=== PATIENT | male | born 1960 | race African-American/Black ===

== ENCOUNTER 2016-05-03 04:42 | Inpatient (IN) | payer OTHER ==
[~2016-05-03] VITALS: Ht 167.6 cm; Wt 67.7 kg
[~2016-05-03 04:42] MED LIST: CLON.1 PO; HYDR50 PO; LABE200T PO; METH10 PO; MULT-1192 PO
[2016-05-03 05:27] LABS: BASOPHILS # (AUTO) 0.06 K/uL (0.00-0.20); BASOPHILS % (AUTO) 0.6 % (0.0-2.0); EOSINOPHILS # (AUTO) 0.37 K/uL (0.00-0.70); HEMATOCRIT 39.9 % (41-53); LYMPHOCYTES # (AUTO) 1.4 K/uL (1.0-4.8); LYMPHOCYTES % (AUTO) 13.2 % (22.0-44.0); MEAN CORPUSCULAR HEMOGLOBIN 26.7 pg (26.0-34.0); MEAN CORPUSCULAR HGB CONC 32.6 G/dL (31.0-37.0); MEAN CORPUSCULAR VOLUME 82 fL (80-100); MONOCYTES # (AUTO) 0.6 K/uL (0.1-1.0); MONOCYTES % (AUTO) 5.8 % (2.0-9.0); NEUTROPHILS % (AUTO) 76.9 % (40.0-70.0); PLATELET COUNT (AUTO) 198 K/uL (150-450); RED BLOOD CELL COUNT(AUTO) 4.86 MIL/uL (4.50-5.90); RED CELL DISTRIBUTION WIDTH 16.3 % (11.5-14.5); WHITE BLOOD COUNT (AUTO) 10.4 K/uL (4.5-11.0)
[2016-05-03 05:32] LABS: ANION GAP 11 mmol/L (8-16); CALCIUM, TOTAL 8.6 mg/dL (8.8-10.5); CARBON DIOXIDE 24 mmol/L (22-29); CHLORIDE 106 mmol/L (98-107); CREATININE 2.13 mg/dL (0.60-1.30); GLOMERULAR FILTR. RATE CALC 39 mL/min (>60); POTASSIUM 4.1 mmol/L (3.5-5.1); SODIUM SERUM 141 mmol/L (136-145); UREA NITROGEN, BLOOD 32 mg/dL (7-18)
[2016-05-03 05:33] LABS: PROTHROMBIN TIME 10.7 SEC (9.4-11.6)
[2016-05-03] MEDS ORDERED: NITROGLYCERIN 2% (1 GM=INCH) PACKET TP ONE (05:45)
[2016-05-03] MEDS ORDERED: CloNIDine HCL 0.1 MG TABLET PO ONE (05:45)
[2016-05-03] MEDS ORDERED: HydrALAZINE HCL 20 MG/ML VIAL IVP ONE (05:45)
[2016-05-03 05:49] LABS: B-TYPE NATRIURETIC PEPTIDE 1440 pg/mL (0-100)
[2016-05-03 05:56] LABS: ALANINE AMINOTRANSFERASE 24 U/L (12-78); ASPARTATE AMINOTRANSFERASE 21 U/L (15-37); BILIRUBIN,TOTAL 0.4 mg/dL (0.1-1.0); CREATINE KINASE MB 2.5 ng/mL (0-5); CREATINE KINASE, TOTAL 123 U/L (39-308); TOTAL PROTEIN, SERUM 7.2 g/dL (6.4-8.2)
[2016-05-03 07:22] LABS: APPEARANCE,URINE CLEAR (CLEAR); GLUCOSE, URINE (UA) NEGATIVE (NEGATIVE); KETONES,URINE NEGATIVE (NEGATIVE); LEUKOCYTE ESTERASE ,URINE NEGATIVE (NEGATIVE); OCCULT BLOOD,URINE TRACE (NEGATIVE); PH,URINE 6.5 (5.0-8.0); PROTEIN,URINE SEE CONFIRM (NEGATIVE)
[2016-05-03 07:32] LABS: ADD UA MICROSCOPIC YES
[2016-05-03 07:33] LABS: SULFOSALICYLIC ACID,URINE 4+ (Negative)
[2016-05-03 07:34] LABS: SQUAMOUS EPITHELIAL CELL,UR Rare /LPF (None Seen); WBC,URINE 0-2 /HPF (0-5)
[2016-05-03] MEDS ORDERED: NITROGLYCERIN 50 MG/D5% WATER 250 ML IV PRN (08:00)
[2016-05-03] MEDS: NITROPRUSSIDE SODIUM 50 MG in DEXTROSE 5%-WATER 248 ML IV PRN ×4 (09:45→21:17)
[2016-05-03] MEDS: METHADONE HCL 10 MG TABLET PO SCH (14:20)
[2016-05-03 15:30] VITALS: BP 249/160
[2016-05-03] MEDS: CloNIDine HCL 0.1 MG TABLET PO SCH ×2 (15:59→20:06)
[2016-05-03 16:00] VITALS: BP 203/128
[2016-05-03] MEDS ORDERED: -PHARMACY VACCINE NOTE- MISC ONE ×2 (16:45)
[2016-05-03] MEDS ORDERED: INFLUENZA VIRUS VACCINE QVS 2016-17 (3YR+)/PF 60 MCG/0.5 ML SYRINGE IM ONE (16:45)
[2016-05-03 20:00] VITALS: BP 185/136
[2016-05-03] MEDS ORDERED: BISACODYL 10 MG RECTAL RECTAL SUPPOSITORY PR PRN (21:45)
[2016-05-03] MEDS ORDERED: IPRATROPIUM BROMIDE 0.5 MG/2.5 ML NEB SOLUTION NEB PRN (21:45)
[2016-05-03] MEDS ORDERED: ALBUTEROL SULFATE 2.5 MG/0.5 ML NEB SOLUTION NEB PRN (21:45)
[2016-05-03] MEDS ORDERED: ACETAMINOPHEN 325 MG TABLET PO PRN (21:45)
[2016-05-03] MEDS ORDERED: MAGNESIUM HYDROXIDE SUSPENSION 30 ML UDCUP PO PRN (21:45)
[2016-05-03] MEDS ORDERED: ZOLPIDEM TARTRATE 5 MG TABLET PO PRN (21:45)
[2016-05-03] MEDS ORDERED: HYDROCODONE/ACETAMINOPHEN 5-325 MG TABLET PO PRN (21:45)
[2016-05-03] MEDS ORDERED: HydrALAZINE HCL 50 MG TABLET ONE (22:56)
[2016-05-03] MEDS: HydrALAZINE HCL 50 MG TABLET PO SCH ×2 (23:00→23:43)
[2016-05-03] MEDS: ONDANSETRON HCL 4 MG/2 ML VIAL IVP PRN (23:43)
[2016-05-03] MEDS: HEPARIN SODIUM,PORCINE 5,000 UNITS/ML VIAL SQ SCH (23:45)
[2016-05-04] VITALS (10 sets, daily range): BP systolic 124–196; BP diastolic 71–110
[2016-05-04] MEDS: NITROPRUSSIDE SODIUM 50 MG in DEXTROSE 5%-WATER 248 ML IV PRN ×4 (00:31→09:31)
[2016-05-04] MEDS: MORPHINE SULFATE 2 MG/ML SYRINGE IVP PRN ×2 (01:55→04:56)
[2016-05-04] MEDS ORDERED: LABETALOL HCL 200 MG in DEXTROSE 5%-WATER 160 ML IV PRN (03:44)
[2016-05-04] MEDS ORDERED: CloNIDine HCL 0.3 MG/24 HOUR PATCH TD ONE (03:45)
[2016-05-04] MEDS ORDERED: HydrALAZINE HCL 20 MG/ML VIAL IVP PRN (03:45)
[2016-05-04 05:57] LABS: BASOPHILS % (AUTO) 0.1 % (0.0-2.0); EOSINOPHILS % (AUTO) 0.3 % (1.0-6.0); HEMATOCRIT 39.5 % (41-53); HEMOGLOBIN 12.8 g/dL (13.5-17.5); LYMPHOCYTES # (AUTO) 0.6 K/uL (1.0-4.8); LYMPHOCYTES % (AUTO) 4.6 % (22.0-44.0); MEAN CORPUSCULAR HEMOGLOBIN 26.5 pg (26.0-34.0); MEAN CORPUSCULAR HGB CONC 32.3 G/dL (31.0-37.0); MEAN CORPUSCULAR VOLUME 82 fL (80-100); MONOCYTES # (AUTO) 0.5 K/uL (0.1-1.0); MONOCYTES % (AUTO) 3.5 % (2.0-9.0); NEUTROPHILS # (AUTO) 12.8 K/uL (1.8-7.7); PLATELET COUNT (AUTO) 191 K/uL (150-450); RED BLOOD CELL COUNT(AUTO) 4.81 MIL/uL (4.50-5.90)
[2016-05-04 06:09] LABS: CALCIUM, TOTAL 8.5 mg/dL (8.8-10.5); CREATININE 2.11 mg/dL (0.60-1.30); POTASSIUM 4.2 mmol/L (3.5-5.1)
[2016-05-04 06:41] LABS: NEUTROPHILS % (AUTO) 91.5 % (40.0-70.0)
[2016-05-04 06:42] LABS: RBC MORPHOLOGY COMMENT NORMAL RBC MORPH
[2016-05-04] MEDS: DOCUSATE SODIUM 100 MG CAPSULE PO SCH ×2 (08:15→21:52)
[2016-05-04] MEDS: METHADONE HCL 10 MG TABLET PO SCH (08:15)
[2016-05-04] MEDS: HEPARIN SODIUM,PORCINE 5,000 UNITS/ML VIAL SQ SCH ×2 (08:16→15:51)
[2016-05-04] MEDS: ONDANSETRON HCL 4 MG/2 ML VIAL IVP PRN (08:16)
[2016-05-04] MEDS: HydrALAZINE HCL 50 MG TABLET PO SCH ×3 (08:16→21:52)
[2016-05-04] MEDS: PANTOPRAZOLE SODIUM 40 MG/VIAL IVP SCH (08:17)
[2016-05-04] MEDS: LABETALOL HCL 200 MG TABLET PO SCH ×3 (08:58→23:00)
[2016-05-04] MEDS ORDERED: HydrALAZINE HCL 50 MG TABLET PO SCH (09:00)
[2016-05-05] MEDS: HEPARIN SODIUM,PORCINE 5,000 UNITS/ML VIAL SQ SCH ×2 (00:29→08:39)
[2016-05-05 04:48] VITALS: BP 118/78
[2016-05-05 07:09] LABS: BASOPHILS % (AUTO) 0.4 % (0.0-2.0); EOSINOPHILS % (AUTO) 2.9 % (1.0-6.0); HEMATOCRIT 35.9 % (41-53); HEMOGLOBIN 11.6 g/dL (13.5-17.5); LYMPHOCYTES # (AUTO) 1.4 K/uL (1.0-4.8); LYMPHOCYTES % (AUTO) 17.3 % (22.0-44.0); MEAN CORPUSCULAR HEMOGLOBIN 26.5 pg (26.0-34.0); MEAN CORPUSCULAR HGB CONC 32.3 G/dL (31.0-37.0); MEAN CORPUSCULAR VOLUME 82 fL (80-100); MONOCYTES # (AUTO) 0.7 K/uL (0.1-1.0); MONOCYTES % (AUTO) 8.3 % (2.0-9.0); NEUTROPHILS # (AUTO) 5.7 K/uL (1.8-7.7); NEUTROPHILS % (AUTO) 71.1 % (40.0-70.0); PLATELET COUNT (AUTO) 170 K/uL (150-450); RED BLOOD CELL COUNT(AUTO) 4.37 MIL/uL (4.50-5.90); RED CELL DISTRIBUTION WIDTH 15.8 % (11.5-14.5)
[2016-05-05 07:19] VITALS: BP 166/100
[2016-05-05 07:42] LABS: ALBUMIN 2.7 g/dL (3.4-5.0); BILIRUBIN,TOTAL 0.5 mg/dL (0.1-1.0); CALCIUM, TOTAL 8.6 mg/dL (8.8-10.5); CREATININE 2.49 mg/dL (0.60-1.30); MAGNESIUM 2.1 mg/dL (1.80-2.40); POTASSIUM 4.3 mmol/L (3.5-5.1); TOTAL PROTEIN, SERUM 6.4 g/dL (6.4-8.2)
[2016-05-05] MEDS: METHADONE HCL 10 MG TABLET PO SCH (08:40)
[2016-05-05] MEDS: DOCUSATE SODIUM 100 MG CAPSULE PO SCH (08:40)
[2016-05-05] MEDS: PANTOPRAZOLE SODIUM 40 MG/VIAL IVP SCH (08:40)
[2016-05-05] MEDS: HydrALAZINE HCL 50 MG TABLET PO SCH (08:40)
== END 2016-05-05 09:00 | disposition left against medical advice (07) | DRG 199 ==
LOC: EMS 04:43 → ICU 14:32 → 5N 05-04 22:24
PROVIDERS: ADMIT Hospitalist; ATTEND Hospitalist
DX: I16.9 Hypertensive crisis, unspecified (principal); I50.23 Acute on chronic systolic (congestive) heart failure; E44.0 Moderate protein-calorie malnutrition; N18.3 Chronic kidney disease, stage 3 (moderate); E11.22 Type 2 diabetes mellitus with diabetic chronic kidney disease; I13.0 Hypertensive heart and chronic kidney disease with heart failure and stage 1 through stage 4 chronic kidney disease, or unspecified chronic kidney disease; D64.9 Anemia, unspecified; F41.9 Anxiety disorder, unspecified; F15.10 Other stimulant abuse, uncomplicated; F17.210 Nicotine dependence, cigarettes, uncomplicated; G89.29 Other chronic pain; Z79.891 Long term (current) use of opiate analgesic; Z79.899 Other long term (current) drug therapy; Z87.81 Personal history of (healed) traumatic fracture; Z98.890 Other specified postprocedural states; Z68.24 Body mass index [BMI] 24.0-24.9, adult
CPT/HCPCS: 83735; 87081; 93005; 93306; 96365; 96375; 99285; C9113; G0480; J0360; J1644; J2270; J2405; J3490; J7060

== ENCOUNTER 2016-05-13 03:36 | Inpatient (IN) | payer OTHER ==
[~2016-05-13] VITALS: Ht 170.2 cm; Wt 65.0 kg
[2016-05-13] MEDS ORDERED: NITROGLYCERIN 2% (1 GM=INCH) PACKET TP ONE (04:00)
[2016-05-13] MEDS ORDERED: FUROSEMIDE 40 MG/4 ML VIAL IVP ONE (04:00)
[2016-05-13 04:01] LABS: BASOPHILS % (AUTO) 0.3 % (0.0-2.0); EOSINOPHILS % (AUTO) 5.5 % (1.0-6.0); HEMATOCRIT 35.2 % (41-53); HEMOGLOBIN 11.3 g/dL (13.5-17.5); LYMPHOCYTES # (AUTO) 1.3 K/uL (1.0-4.8); MEAN CORPUSCULAR HEMOGLOBIN 26.4 pg (26.0-34.0); MEAN CORPUSCULAR HGB CONC 32.2 G/dL (31.0-37.0); MEAN CORPUSCULAR VOLUME 82 fL (80-100); MONOCYTES # (AUTO) 0.6 K/uL (0.1-1.0); NEUTROPHILS # (AUTO) 8.6 K/uL (1.8-7.7); NEUTROPHILS % (AUTO) 77.2 % (40.0-70.0); PLATELET COUNT (AUTO) 280 K/uL (150-450); RED CELL DISTRIBUTION WIDTH 15.2 % (11.5-14.5); WHITE BLOOD COUNT (AUTO) 11.1 K/uL (4.5-11.0)
[2016-05-13] MEDS ORDERED: HydrALAZINE HCL 20 MG/ML VIAL IVP ONE ×2 (04:15→05:15)
[2016-05-13 04:16] LABS: ANION GAP 11 mmol/L (8-16); CALCIUM, TOTAL 8.6 mg/dL (8.8-10.5); CARBON DIOXIDE 27 mmol/L (22-29); CHLORIDE 107 mmol/L (98-107); CREATININE 2.06 mg/dL (0.60-1.30); GLOMERULAR FILTR. RATE CALC 41 mL/min (>60); POTASSIUM 3.6 mmol/L (3.5-5.1); SODIUM SERUM 145 mmol/L (136-145); UREA NITROGEN, BLOOD 33 mg/dL (7-18)
[2016-05-13 04:19] LABS: B-TYPE NATRIURETIC PEPTIDE 1570 pg/mL (0-100)
[2016-05-13 04:40] LABS: ALANINE AMINOTRANSFERASE 139 U/L (12-78); ALBUMIN 2.9 g/dL (3.4-5.0); ASPARTATE AMINOTRANSFERASE 52 U/L (15-37); BILIRUBIN,TOTAL 0.5 mg/dL (0.1-1.0); CREATINE KINASE MB 3.4 ng/mL (0-5); CREATINE KINASE, TOTAL 141 U/L (39-308); TOTAL PROTEIN, SERUM 6.7 g/dL (6.4-8.2)
[2016-05-13 04:44] LABS: APPEARANCE,URINE CLEAR (CLEAR); GLUCOSE, URINE (UA) NEGATIVE (NEGATIVE); KETONES,URINE NEGATIVE (NEGATIVE); OCCULT BLOOD,URINE TRACE-LYSE (NEGATIVE); PROTEIN,URINE SEE CONFIRM (NEGATIVE)
[2016-05-13 04:45] LABS: ADD UA MICROSCOPIC YES; LEUKOCYTE ESTERASE ,URINE NEGATIVE (NEGATIVE)
[2016-05-13] MEDS ORDERED: IPRATROPIUM BROMIDE 0.5 MG/2.5 ML NEB SOLUTION NEB ONE (04:45)
[2016-05-13] MEDS ORDERED: ALBUTEROL SULFATE 5 MG/ML 20 ML NEB SOLN [BULK] NEB ONE (04:45)
[2016-05-13 04:46] LABS: SULFOSALICYLIC ACID,URINE 1+ (Negative)
[2016-05-13 04:47] LABS: SQUAMOUS EPITHELIAL CELL,UR Rare /LPF (None Seen); WBC,URINE 0-2 /HPF (0-5)
[2016-05-13] MEDS ORDERED: 0.9% SODIUM CHLORIDE 15 ML NEB SOLUTION NEB ONE (04:50)
[2016-05-13] MEDS ORDERED: CloNIDine HCL 0.1 MG TABLET PO ONE (05:15)
[2016-05-13] MEDS ORDERED: PROMETHAZINE HCL 25 MG/ML VIAL IM ONE (05:15)
[2016-05-13] MEDS ORDERED: METHADONE HCL 10 MG TABLET PO ONE (07:45)
[2016-05-13] MEDS ORDERED: ACETAMINOPHEN 325 MG TABLET PO PRN (09:00)
[2016-05-13] MEDS ORDERED: ALBUTEROL SULFATE 2.5 MG/0.5 ML NEB SOLUTION NEB PRN (09:00)
[2016-05-13] MEDS ORDERED: IPRATROPIUM BROMIDE 0.5 MG/2.5 ML NEB SOLUTION NEB PRN (09:00)
[2016-05-13] MEDS ORDERED: BISACODYL 10 MG RECTAL RECTAL SUPPOSITORY PR PRN (09:00)
[2016-05-13] MEDS ORDERED: OxyCODONE HCL/ACETAMINOPHEN 5-325 MG TABLET PO PRN (09:00)
[2016-05-13] MEDS: FUROSEMIDE 40 MG/4 ML VIAL IVP SCH (09:00)
[2016-05-13] MEDS: DOCUSATE SODIUM 100 MG CAPSULE PO SCH ×2 (09:35→20:58)
[2016-05-13] MEDS: HEPARIN SODIUM,PORCINE 5,000 UNITS/ML VIAL SQ SCH ×2 (09:35→20:58)
[2016-05-13] MEDS: PANTOPRAZOLE SODIUM 40 MG DR TABLET PO SCH (09:35)
[2016-05-13] MEDS: LOSARTAN POTASSIUM 50 MG TABLET PO SCH (09:35)
[2016-05-13] MEDS: ASPIRIN 81 MG CHEWABLE TABLET PO SCH (09:35)
[2016-05-13 20:12] VITALS: BP 186/108
[2016-05-13] MEDS: CloNIDine HCL 0.1 MG TABLET PO PRN (20:58)
[2016-05-14] VITALS (10 sets, daily range): BP systolic 132–197; BP diastolic 86–118
[2016-05-14] MEDS ORDERED: HydrALAZINE HCL 20 MG/ML VIAL ONE (01:31)
[2016-05-14] MEDS: HydrALAZINE HCL 20 MG/ML VIAL IVP PRN ×4 (01:37→23:40)
[2016-05-14 07:40] LABS: BASOPHILS % (AUTO) 0.2 % (0.0-2.0); EOSINOPHILS % (AUTO) 4.4 % (1.0-6.0); HEMATOCRIT 43.7 % (41-53); HEMOGLOBIN 13.8 g/dL (13.5-17.5); LYMPHOCYTES # (AUTO) 1.9 K/uL (1.0-4.8); LYMPHOCYTES % (AUTO) 18.9 % (22.0-44.0); MEAN CORPUSCULAR HEMOGLOBIN 26.4 pg (26.0-34.0); MEAN CORPUSCULAR HGB CONC 31.6 G/dL (31.0-37.0); MEAN CORPUSCULAR VOLUME 83 fL (80-100); MONOCYTES # (AUTO) 0.7 K/uL (0.1-1.0); MONOCYTES % (AUTO) 6.9 % (2.0-9.0); NEUTROPHILS # (AUTO) 7.1 K/uL (1.8-7.7); NEUTROPHILS % (AUTO) 69.6 % (40.0-70.0); PLATELET COUNT (AUTO) 318 K/uL (150-450); RED BLOOD CELL COUNT(AUTO) 5.24 MIL/uL (4.50-5.90); RED CELL DISTRIBUTION WIDTH 15.4 % (11.5-14.5); WHITE BLOOD COUNT (AUTO) 10.2 K/uL (4.5-11.0)
[2016-05-14 07:47] LABS: CALCIUM, TOTAL 8.8 mg/dL (8.8-10.5); CREATININE 2.19 mg/dL (0.60-1.30); POTASSIUM 3.7 mmol/L (3.5-5.1)
[2016-05-14] MEDS: DOCUSATE SODIUM 100 MG CAPSULE PO SCH ×2 (08:16→20:15)
[2016-05-14] MEDS: HEPARIN SODIUM,PORCINE 5,000 UNITS/ML VIAL SQ SCH ×2 (08:16→20:15)
[2016-05-14] MEDS: FUROSEMIDE 40 MG/4 ML VIAL IVP SCH (08:16)
[2016-05-14] MEDS: ASPIRIN 81 MG CHEWABLE TABLET PO SCH (08:16)
[2016-05-14] MEDS: LOSARTAN POTASSIUM 50 MG TABLET PO SCH (08:16)
[2016-05-14] MEDS: PANTOPRAZOLE SODIUM 40 MG DR TABLET PO SCH (08:17)
[2016-05-14] MEDS: CloNIDine HCL 0.1 MG TABLET PO PRN (08:20)
[2016-05-14] MEDS ORDERED: IPRATROPIUM BROMIDE 0.5 MG/2.5 ML NEB SOLUTION NEB SCH (16:00)
[2016-05-14] MEDS ORDERED: IPRATROPIUM BROMIDE 0.5 MG/2.5 ML NEB SOLUTION NEB PRN (16:00)
[2016-05-14] MEDS ORDERED: ALBUTEROL SULFATE 2.5 MG/0.5 ML NEB SOLUTION NEB SCH (16:00)
[2016-05-14] MEDS ORDERED: ALBUTEROL SULFATE 2.5 MG/0.5 ML NEB SOLUTION NEB PRN (16:00)
[2016-05-14] MEDS: METHADONE HCL 10 MG TABLET PO SCH (17:00)
[2016-05-14] MEDS: IPRATROPIUM BROMIDE 0.5 MG/2.5 ML NEB SOLUTION NEB SCH (19:37)
[2016-05-14] MEDS: ALBUTEROL SULFATE 2.5 MG/0.5 ML NEB SOLUTION NEB SCH (19:37)
[2016-05-15] MEDS: IPRATROPIUM BROMIDE 0.5 MG/2.5 ML NEB SOLUTION NEB SCH ×4 (02:00→19:46)
[2016-05-15] MEDS: ALBUTEROL SULFATE 2.5 MG/0.5 ML NEB SOLUTION NEB SCH ×4 (02:00→19:47)
[2016-05-15] MEDS: CloNIDine HCL 0.1 MG TABLET PO PRN ×2 (03:59→20:40)
[2016-05-15 04:12] VITALS: BP 159/101
[2016-05-15 08:03] LABS: BASOPHILS % (AUTO) 0.5 % (0.0-2.0); EOSINOPHILS % (AUTO) 4.9 % (1.0-6.0); HEMOGLOBIN 11.9 g/dL (13.5-17.5); LYMPHOCYTES # (AUTO) 1.7 K/uL (1.0-4.8); LYMPHOCYTES % (AUTO) 17.5 % (22.0-44.0); MEAN CORPUSCULAR HEMOGLOBIN 26.6 pg (26.0-34.0); MEAN CORPUSCULAR HGB CONC 32.2 G/dL (31.0-37.0); MEAN CORPUSCULAR VOLUME 83 fL (80-100); MONOCYTES # (AUTO) 0.8 K/uL (0.1-1.0); MONOCYTES % (AUTO) 8.1 % (2.0-9.0); NEUTROPHILS # (AUTO) 6.5 K/uL (1.8-7.7); PLATELET COUNT (AUTO) 295 K/uL (150-450); RED BLOOD CELL COUNT(AUTO) 4.48 MIL/uL (4.50-5.90); RED CELL DISTRIBUTION WIDTH 15.6 % (11.5-14.5); WHITE BLOOD COUNT (AUTO) 9.5 K/uL (4.5-11.0)
[2016-05-15 08:32] VITALS: BP 140/77
[2016-05-15] MEDS ORDERED: AmLODIPine BESYLATE 5 MG TABLET PO SCH (09:00)
[2016-05-15 09:05] LABS: CALCIUM, TOTAL 8.3 mg/dL (8.8-10.5); CREATININE 2.17 mg/dL (0.60-1.30); POTASSIUM 4.6 mmol/L (3.5-5.1)
[2016-05-15] MEDS: ASPIRIN 81 MG CHEWABLE TABLET PO SCH (09:50)
[2016-05-15] MEDS: PANTOPRAZOLE SODIUM 40 MG DR TABLET PO SCH (09:50)
[2016-05-15] MEDS: METHADONE HCL 10 MG TABLET PO SCH (09:50)
[2016-05-15] MEDS: LOSARTAN POTASSIUM 50 MG TABLET PO SCH (09:54)
[2016-05-15] MEDS: HEPARIN SODIUM,PORCINE 5,000 UNITS/ML VIAL SQ SCH ×2 (09:54→20:40)
[2016-05-15] MEDS: FUROSEMIDE 40 MG/4 ML VIAL IVP SCH (09:55)
[2016-05-15] MEDS: DOCUSATE SODIUM 100 MG CAPSULE PO SCH ×2 (09:55→20:41)
[2016-05-15 11:25] VITALS: BP 143/108
[2016-05-15 15:43] VITALS: BP 138/96
[2016-05-15 19:53] VITALS: BP 150/106
[2016-05-16] VITALS (7 sets, daily range): BP systolic 145–174; BP diastolic 74–109
[2016-05-16] MEDS: IPRATROPIUM BROMIDE 0.5 MG/2.5 ML NEB SOLUTION NEB SCH ×4 (02:00→20:15)
[2016-05-16] MEDS: ALBUTEROL SULFATE 2.5 MG/0.5 ML NEB SOLUTION NEB SCH (02:00)
[2016-05-16] MEDS: CloNIDine HCL 0.1 MG TABLET PO PRN ×2 (04:43→20:52)
[2016-05-16 07:12] LABS: BASOPHILS # (AUTO) 0.03 K/uL (0.00-0.20); BASOPHILS % (AUTO) 0.4 % (0.0-2.0); EOSINOPHILS % (AUTO) 5.31 % (1.0-6.0); HEMATOCRIT 34.4 % (41-53); HEMOGLOBIN 11.4 g/dL (13.5-17.5); LYMPHOCYTES # (AUTO) 1.5 K/uL (1.0-4.8); LYMPHOCYTES % (AUTO) 15.9 % (22.0-44.0); MEAN CORPUSCULAR HEMOGLOBIN 27.2 pg (26.0-34.0); MEAN CORPUSCULAR HGB CONC 33.2 G/dL (31.0-37.0); MEAN CORPUSCULAR VOLUME 82 fL (80-100); MONOCYTES # (AUTO) 0.8 K/uL (0.1-1.0); MONOCYTES % (AUTO) 8.2 % (2.0-9.0); NEUTROPHILS # (AUTO) 6.6 K/uL (1.8-7.7); NEUTROPHILS % (AUTO) 70.2 % (40.0-70.0); PLATELET COUNT (AUTO) 271 K/uL (150-450); RED BLOOD CELL COUNT(AUTO) 4.19 MIL/uL (4.50-5.90); RED CELL DISTRIBUTION WIDTH 16.1 % (11.5-14.5); WHITE BLOOD COUNT (AUTO) 9.4 K/uL (4.5-11.0)
[2016-05-16 07:42] LABS: CALCIUM, TOTAL 8.9 mg/dL (8.8-10.5); CREATININE 2.26 mg/dL (0.60-1.30); POTASSIUM 4.9 mmol/L (3.5-5.1)
[2016-05-16] MEDS: ASPIRIN 81 MG CHEWABLE TABLET PO SCH (08:23)
[2016-05-16] MEDS: METHADONE HCL 10 MG TABLET PO SCH (08:23)
[2016-05-16] MEDS: DOCUSATE SODIUM 100 MG CAPSULE PO SCH ×2 (08:23→20:53)
[2016-05-16] MEDS: FUROSEMIDE 40 MG/4 ML VIAL IVP SCH (08:24)
[2016-05-16] MEDS: AmLODIPine BESYLATE 10 MG TABLET PO SCH (08:24)
[2016-05-16] MEDS: LOSARTAN POTASSIUM 50 MG TABLET PO SCH (08:24)
[2016-05-16] MEDS: HEPARIN SODIUM,PORCINE 5,000 UNITS/ML VIAL SQ SCH ×2 (08:24→20:52)
[2016-05-16] MEDS: PANTOPRAZOLE SODIUM 40 MG DR TABLET PO SCH (08:24)
[2016-05-17] MEDS: HydrALAZINE HCL 20 MG/ML VIAL IVP PRN (00:43)
[2016-05-17] MEDS: IPRATROPIUM BROMIDE 0.5 MG/2.5 ML NEB SOLUTION NEB SCH ×3 (02:07→20:15)
[2016-05-17 04:42] VITALS: BP 170/110
[2016-05-17] MEDS: CloNIDine HCL 0.1 MG TABLET PO PRN (06:32)
[2016-05-17 07:27] LABS: EOSINOPHILS % (AUTO) 1.1 % (1.0-6.0); HEMATOCRIT 40.9 % (41-53); HEMOGLOBIN 13.1 g/dL (13.5-17.5); LYMPHOCYTES # (AUTO) 0.2 K/uL (1.0-4.8); LYMPHOCYTES % (AUTO) 2.3 % (22.0-44.0); MEAN CORPUSCULAR HEMOGLOBIN 26.4 pg (26.0-34.0); MEAN CORPUSCULAR HGB CONC 32.1 G/dL (31.0-37.0); MEAN CORPUSCULAR VOLUME 82 fL (80-100); MONOCYTES # (AUTO) 0.4 K/uL (0.1-1.0); MONOCYTES % (AUTO) 4.1 % (2.0-9.0); NEUTROPHILS # (AUTO) 9.5 K/uL (1.8-7.7); PLATELET COUNT (AUTO) 285 K/uL (150-450); RED BLOOD CELL COUNT(AUTO) 4.97 MIL/uL (4.50-5.90); RED CELL DISTRIBUTION WIDTH 15.6 % (11.5-14.5); WHITE BLOOD COUNT (AUTO) 10.3 K/uL (4.5-11.0)
[2016-05-17 07:36] LABS: NEUTROPHILS % (AUTO) 92.5 % (40.0-70.0)
[2016-05-17 07:49] VITALS: BP 175/108
[2016-05-17 07:50] LABS: ALBUMIN 3.2 g/dL (3.4-5.0); BILIRUBIN,TOTAL 0.5 mg/dL (0.1-1.0); CALCIUM, TOTAL 9.6 mg/dL (8.8-10.5); CREATININE 2.11 mg/dL (0.60-1.30); MAGNESIUM 2.2 mg/dL (1.80-2.40); POTASSIUM 5.6 mmol/L (3.5-5.1)
[2016-05-17] MEDS: ASPIRIN 81 MG CHEWABLE TABLET PO SCH (08:04)
[2016-05-17] MEDS: AmLODIPine BESYLATE 10 MG TABLET PO SCH (08:04)
[2016-05-17] MEDS: PANTOPRAZOLE SODIUM 40 MG DR TABLET PO SCH (08:04)
[2016-05-17] MEDS: DOCUSATE SODIUM 100 MG CAPSULE PO SCH ×2 (08:04→21:11)
[2016-05-17] MEDS: METHADONE HCL 10 MG TABLET PO SCH (08:04)
[2016-05-17] MEDS: FUROSEMIDE 40 MG/4 ML VIAL IVP SCH (08:05)
[2016-05-17] MEDS: HEPARIN SODIUM,PORCINE 5,000 UNITS/ML VIAL SQ SCH ×2 (08:05→21:12)
[2016-05-17] MEDS: LOSARTAN POTASSIUM 50 MG TABLET PO SCH (08:05)
[2016-05-17 08:33] LABS: RBC MORPHOLOGY COMMENT NORMAL RBC MORPH
[2016-05-17 11:11] VITALS: BP 165/97
[2016-05-17 15:12] VITALS: BP 154/101
[2016-05-17 20:11] VITALS: BP 154/100
[2016-05-17] MEDS: HydrALAZINE HCL 10 MG TABLET PO SCH (21:11)
[2016-05-17 23:09] VITALS: BP 177/103
[2016-05-18] VITALS (7 sets, daily range): BP systolic 156–178; BP diastolic 92–109
[2016-05-18] MEDS: IPRATROPIUM BROMIDE 0.5 MG/2.5 ML NEB SOLUTION NEB SCH ×3 (02:00→14:00)
[2016-05-18] MEDS: HydrALAZINE HCL 20 MG/ML VIAL IVP PRN (02:50)
[2016-05-18] MEDS: CloNIDine HCL 0.1 MG TABLET PO PRN (04:25)
[2016-05-18 06:40] LABS: BASOPHILS % (AUTO) 0.2 % (0.0-2.0); EOSINOPHILS % (AUTO) 3.9 % (1.0-6.0); HEMATOCRIT 39.5 % (41-53); HEMOGLOBIN 12.7 g/dL (13.5-17.5); LYMPHOCYTES # (AUTO) 0.6 K/uL (1.0-4.8); LYMPHOCYTES % (AUTO) 8.6 % (22.0-44.0); MEAN CORPUSCULAR HEMOGLOBIN 26.4 pg (26.0-34.0); MEAN CORPUSCULAR VOLUME 83 fL (80-100); MONOCYTES # (AUTO) 0.7 K/uL (0.1-1.0); NEUTROPHILS # (AUTO) 5.7 K/uL (1.8-7.7); NEUTROPHILS % (AUTO) 78.3 % (40.0-70.0); PLATELET COUNT (AUTO) 256 K/uL (150-450); RED BLOOD CELL COUNT(AUTO) 4.79 MIL/uL (4.50-5.90); RED CELL DISTRIBUTION WIDTH 16.1 % (11.5-14.5); WHITE BLOOD COUNT (AUTO) 7.3 K/uL (4.5-11.0)
[2016-05-18 07:10] LABS: RBC MORPHOLOGY COMMENT NORMAL RBC MORPH
[2016-05-18 07:14] LABS: BILIRUBIN,TOTAL 0.4 mg/dL (0.1-1.0); CALCIUM, TOTAL 9.4 mg/dL (8.8-10.5); CREATININE 2.29 mg/dL (0.60-1.30); MAGNESIUM 2.4 mg/dL (1.80-2.40); PHOSPHORUS 3.8 mg/dL (2.5-4.9); POTASSIUM 5.2 mmol/L (3.5-5.1); TOTAL PROTEIN, SERUM 7.7 g/dL (6.4-8.2)
[2016-05-18] MEDS ORDERED: CARVEDILOL 12.5 MG TABLET PO SCH (09:00)
[2016-05-18] MEDS: PANTOPRAZOLE SODIUM 40 MG DR TABLET PO SCH (09:21)
[2016-05-18] MEDS: ASPIRIN 81 MG CHEWABLE TABLET PO SCH (09:21)
[2016-05-18] MEDS: METHADONE HCL 10 MG TABLET PO SCH (09:21)
[2016-05-18] MEDS: FUROSEMIDE 40 MG/4 ML VIAL IVP SCH (09:22)
[2016-05-18] MEDS: DOCUSATE SODIUM 100 MG CAPSULE PO SCH (09:22)
[2016-05-18] MEDS: HydrALAZINE HCL 10 MG TABLET PO SCH (09:22)
[2016-05-18] MEDS: HEPARIN SODIUM,PORCINE 5,000 UNITS/ML VIAL SQ SCH (09:22)
[2016-05-18] MEDS: AmLODIPine BESYLATE 10 MG TABLET PO SCH (13:03)
[2016-05-18] MEDS ORDERED: ASPI81 PO (17:52)
[2016-05-18] MEDS ORDERED: AMLO-512 PO (17:52)
[2016-05-18] MEDS ORDERED: FURO40 PO (17:53)
[2016-05-18] MEDS ORDERED: CARV12 PO (17:53)
[2016-05-18] MEDS ORDERED: DSS100 PO (17:53)
[2016-05-18] MEDS ORDERED: HYDR10 PO (17:54)
[2016-05-18] MEDS ORDERED: PANT40TA25 PO (17:55)
== END 2016-05-18 18:20 | disposition home health service (06) | DRG 194 ==
LOC: EMS 03:43 → 5N 14:00
PROVIDERS: ADMIT Internal Medicine; ATTEND Internal Medicine
DX: I13.0 Hypertensive heart and chronic kidney disease with heart failure and stage 1 through stage 4 chronic kidney disease, or unspecified chronic kidney disease (principal); E43 Unspecified severe protein-calorie malnutrition; N17.9 Acute kidney failure, unspecified; N18.3 Chronic kidney disease, stage 3 (moderate); J44.1 Chronic obstructive pulmonary disease with (acute) exacerbation; I50.43 Acute on chronic combined systolic (congestive) and diastolic (congestive) heart failure; F41.9 Anxiety disorder, unspecified; I25.10 Atherosclerotic heart disease of native coronary artery without angina pectoris; I25.2 Old myocardial infarction; F17.210 Nicotine dependence, cigarettes, uncomplicated; F11.10 Opioid abuse, uncomplicated; F15.10 Other stimulant abuse, uncomplicated; Z91.14 Patient's other noncompliance with medication regimen; Z79.899 Other long term (current) drug therapy; Z68.22 Body mass index [BMI] 22.0-22.9, adult; Z59.0 Homelessness; Z98.890 Other specified postprocedural states
CPT/HCPCS: 82570; 83735; 84100; 84156; 84300; 84540; 87081; 93005; 93308; 94640; 94644; 96372; 96374; 96375; 96376; 99291; G0480; J0360; J1644; J1940; J2550

== ENCOUNTER 2016-05-21 20:55 | Inpatient (IN) | payer OTHER ==
[~2016-05-21] VITALS: Ht 165.1 cm; Wt 68.0 kg
[~2016-05-21 20:55] MED LIST changes: +AMLO-512 PO; +ASPI81 PO; +CARV12 PO; -CLON.1 PO; +DSS100 PO; +FURO40 PO; +HYDR10 PO; -HYDR50 PO; -LABE200T PO; +PANT40TA25 PO
[2016-05-21] MEDS ORDERED: HydrALAZINE HCL 20 MG/ML VIAL IVP ONE (22:00)
[2016-05-21] MEDS ORDERED: HydrALAZINE HCL 10 MG TABLET PO ONE (22:00)
[2016-05-21] MEDS ORDERED: CARVEDILOL 3.125 MG TABLET PO ONE (22:00)
[2016-05-21] MEDS ORDERED: CYCLOBENZAPRINE HCL 10 MG TABLET PO ONE (22:00)
[2016-05-21] MEDS ORDERED: ACETAMINOPHEN 500 MG TABLET PO ONE (22:00)
[2016-05-21] MEDS ORDERED: ONDANSETRON HCL 4 MG/2 ML VIAL IVP PRN (23:30)
[2016-05-21] MEDS ORDERED: ZOLPIDEM TARTRATE 10 MG TABLET PO PRN (23:30)
[2016-05-22 00:02] LABS: APPEARANCE,URINE CLEAR (CLEAR); GLUCOSE, URINE (UA) NEGATIVE (NEGATIVE); KETONES,URINE NEGATIVE (NEGATIVE); LEUKOCYTE ESTERASE ,URINE NEGATIVE (NEGATIVE); OCCULT BLOOD,URINE NEGATIVE (NEGATIVE); PH,URINE 5.5 (5.0-8.0); PROTEIN,URINE SEE CONFIRM (NEGATIVE)
[2016-05-22] MEDS: HEPARIN SODIUM,PORCINE 5,000 UNITS/ML VIAL SQ SCH ×4 (00:10→23:37)
[2016-05-22 00:28] LABS: ADD UA MICROSCOPIC YES; SULFOSALICYLIC ACID,URINE 1+ (Negative)
[2016-05-22 00:29] LABS: RBC,URINE 0-2 /HPF (0-2); WBC,URINE 0-2 /HPF (0-5)
[2016-05-22] MEDS: HydrALAZINE HCL 20 MG/ML VIAL IVP PRN ×2 (04:52→15:00)
[2016-05-22] MEDS: OxyCODONE HCL/ACETAMINOPHEN 5-325 MG TABLET PO PRN ×3 (06:19→23:37)
[2016-05-22 07:55] LABS: BASOPHILS # (AUTO) 0.02 K/uL (0.00-0.20); BASOPHILS % (AUTO) 0.2 % (0.0-2.0); EOSINOPHILS # (AUTO) 0.14 K/uL (0.00-0.70); EOSINOPHILS % (AUTO) 1.48 % (1.0-6.0); HEMATOCRIT 37.6 % (41-53); HEMOGLOBIN 12.5 g/dL (13.5-17.5); LYMPHOCYTES % (AUTO) 21.6 % (22.0-44.0); MEAN CORPUSCULAR HEMOGLOBIN 26.8 pg (26.0-34.0); MEAN CORPUSCULAR HGB CONC 33.3 G/dL (31.0-37.0); MEAN CORPUSCULAR VOLUME 81 fL (80-100); MONOCYTES # (AUTO) 0.7 K/uL (0.1-1.0); MONOCYTES % (AUTO) 7.7 % (2.0-9.0); NEUTROPHILS # (AUTO) 6.5 K/uL (1.8-7.7); PLATELET COUNT (AUTO) 291 K/uL (150-450); RED BLOOD CELL COUNT(AUTO) 4.67 MIL/uL (4.50-5.90); RED CELL DISTRIBUTION WIDTH 15.6 % (11.5-14.5); WHITE BLOOD COUNT (AUTO) 9.4 K/uL (4.5-11.0)
[2016-05-22] MEDS: ASPIRIN 81 MG CHEWABLE TABLET PO SCH (08:14)
[2016-05-22] MEDS: PANTOPRAZOLE SODIUM 40 MG DR TABLET PO SCH (08:15)
[2016-05-22] MEDS: METHADONE HCL 10 MG TABLET PO SCH (08:15)
[2016-05-22] MEDS: DOCUSATE SODIUM 100 MG CAPSULE PO SCH ×2 (08:15→21:00)
[2016-05-22] MEDS: CARVEDILOL 12.5 MG TABLET PO SCH ×2 (08:16→21:25)
[2016-05-22] MEDS: AmLODIPine BESYLATE 10 MG TABLET PO SCH (08:16)
[2016-05-22] MEDS: MULTIVITAMINS, THERAPEUTIC TABLET PO SCH (08:16)
[2016-05-22] MEDS: FUROSEMIDE 40 MG TABLET PO SCH (08:17)
[2016-05-22] MEDS: HydrALAZINE HCL 10 MG TABLET PO SCH ×3 (08:17→21:25)
[2016-05-22 08:27] LABS: ALANINE AMINOTRANSFERASE 31 U/L (12-78); ALBUMIN 2.9 g/dL (3.4-5.0); ANION GAP 11 mmol/L (8-16); ASPARTATE AMINOTRANSFERASE 21 U/L (15-37); BILIRUBIN,TOTAL 0.5 mg/dL (0.1-1.0); CALCIUM, TOTAL 8.3 mg/dL (8.8-10.5); CARBON DIOXIDE 26 mmol/L (22-29); CHLORIDE 104 mmol/L (98-107); CREATINE KINASE MB 1.9 ng/mL (0-5); CREATINE KINASE, TOTAL 214 U/L (39-308); CREATININE 1.75 mg/dL (0.60-1.30); GLOMERULAR FILTR. RATE CALC 49 mL/min (>60); POTASSIUM 3.8 mmol/L (3.5-5.1); SODIUM SERUM 141 mmol/L (136-145); TOTAL PROTEIN, SERUM 7.7 g/dL (6.4-8.2); UREA NITROGEN, BLOOD 34 mg/dL (7-18)
[2016-05-22 08:48] LABS: B-TYPE NATRIURETIC PEPTIDE 1150 pg/mL (0-100)
[2016-05-22 21:25] VITALS: BP 158/85
[2016-05-22] MEDS ORDERED: INFLUENZA VIRUS VACCINE QVS 2016-17 (3YR+)/PF 60 MCG/0.5 ML SYRINGE IM ONE (22:15)
[2016-05-22 23:21] VITALS: BP 150/89
[2016-05-23] MEDS: MORPHINE SULFATE 2 MG/ML SYRINGE IVP PRN ×3 (00:59→08:17)
[2016-05-23 04:45] VITALS: BP 177/117
[2016-05-23] MEDS: HydrALAZINE HCL 20 MG/ML VIAL IVP PRN (06:11)
[2016-05-23 08:10] VITALS: BP 157/101
[2016-05-23] MEDS: AmLODIPine BESYLATE 10 MG TABLET PO SCH (08:17)
[2016-05-23] MEDS: PANTOPRAZOLE SODIUM 40 MG DR TABLET PO SCH (08:17)
[2016-05-23] MEDS: CARVEDILOL 12.5 MG TABLET PO SCH ×2 (08:17→20:40)
[2016-05-23] MEDS: MULTIVITAMINS, THERAPEUTIC TABLET PO SCH (08:17)
[2016-05-23] MEDS: FUROSEMIDE 40 MG TABLET PO SCH (08:17)
[2016-05-23] MEDS: DOCUSATE SODIUM 100 MG CAPSULE PO SCH ×2 (08:18→20:40)
[2016-05-23] MEDS: ASPIRIN 81 MG CHEWABLE TABLET PO SCH (08:18)
[2016-05-23] MEDS: HEPARIN SODIUM,PORCINE 5,000 UNITS/ML VIAL SQ SCH ×2 (08:18→16:00)
[2016-05-23] MEDS: HydrALAZINE HCL 10 MG TABLET PO SCH ×4 (08:22→20:40)
[2016-05-23] MEDS: METHADONE HCL 10 MG TABLET PO SCH ×2 (08:22→08:28)
[2016-05-23 11:11] VITALS: BP 164/102
[2016-05-23] MEDS ORDERED: CloNIDine HCL 0.1 MG TABLET PO ONE (11:30)
[2016-05-23 15:54] VITALS: BP 147/101
[2016-05-23 19:44] VITALS: BP 140/87
[2016-05-23] MEDS: OxyCODONE HCL/ACETAMINOPHEN 5-325 MG TABLET PO PRN (20:41)
[2016-05-23 23:34] VITALS: BP 146/84
[2016-05-24] MEDS: MORPHINE SULFATE 2 MG/ML SYRINGE IVP PRN ×2 (00:37→03:55)
[2016-05-24] MEDS: HEPARIN SODIUM,PORCINE 5,000 UNITS/ML VIAL SQ SCH ×3 (08:00→16:00)
[2016-05-24] MEDS: FUROSEMIDE 40 MG TABLET PO SCH (08:19)
[2016-05-24] MEDS: ASPIRIN 81 MG CHEWABLE TABLET PO SCH (08:19)
[2016-05-24] MEDS: DOCUSATE SODIUM 100 MG CAPSULE PO SCH ×2 (08:20→21:08)
[2016-05-24] MEDS: PANTOPRAZOLE SODIUM 40 MG DR TABLET PO SCH (08:20)
[2016-05-24] MEDS: METHADONE HCL 10 MG TABLET PO SCH (08:20)
[2016-05-24] MEDS: HydrALAZINE HCL 10 MG TABLET PO SCH ×3 (08:20→21:08)
[2016-05-24] MEDS: MULTIVITAMINS, THERAPEUTIC TABLET PO SCH (08:20)
[2016-05-24] MEDS: CARVEDILOL 12.5 MG TABLET PO SCH ×2 (08:21→21:08)
[2016-05-24] MEDS: AmLODIPine BESYLATE 10 MG TABLET PO SCH (08:21)
[2016-05-24] MEDS ORDERED: METHADONE HCL 10 MG TABLET PO SCH (15:00)
[2016-05-24 15:50] LABS: APPEARANCE,URINE CLEAR (CLEAR); GLUCOSE, URINE (UA) NEGATIVE (NEGATIVE); KETONES,URINE NEGATIVE (NEGATIVE); LEUKOCYTE ESTERASE ,URINE NEGATIVE (NEGATIVE); OCCULT BLOOD,URINE NEGATIVE (NEGATIVE); PROTEIN,URINE SEE CONFIRM (NEGATIVE)
[2016-05-24 16:02] LABS: ADD UA MICROSCOPIC YES; SULFOSALICYLIC ACID,URINE 1+ (Negative)
[2016-05-24 16:05] LABS: RBC,URINE None Seen /HPF (0-2); WBC,URINE 0-2 /HPF (0-5)
[2016-05-24] MEDS: ACETAMINOPHEN 325 MG TABLET PO PRN (20:52)
[2016-05-24 20:56] VITALS: BP 193/153
[2016-05-24 23:08] VITALS: BP 152/98
[2016-05-25] MEDS: HEPARIN SODIUM,PORCINE 5,000 UNITS/ML VIAL SQ SCH ×3 (00:11→17:49)
[2016-05-25] MEDS: ACETAMINOPHEN 325 MG TABLET PO PRN ×4 (00:22→17:38)
[2016-05-25 07:21] VITALS: BP 138/71
[2016-05-25 07:46] VITALS: BP 211/110
[2016-05-25] MEDS: AmLODIPine BESYLATE 10 MG TABLET PO SCH (08:26)
[2016-05-25] MEDS: METHADONE HCL 10 MG TABLET PO SCH (08:26)
[2016-05-25] MEDS: DOCUSATE SODIUM 100 MG CAPSULE PO SCH ×2 (08:26→20:28)
[2016-05-25] MEDS: FUROSEMIDE 40 MG TABLET PO SCH (08:27)
[2016-05-25] MEDS: MULTIVITAMINS, THERAPEUTIC TABLET PO SCH (08:27)
[2016-05-25] MEDS: CARVEDILOL 12.5 MG TABLET PO SCH ×2 (08:27→20:28)
[2016-05-25] MEDS: PANTOPRAZOLE SODIUM 40 MG DR TABLET PO SCH (08:27)
[2016-05-25] MEDS: ASPIRIN 81 MG CHEWABLE TABLET PO SCH (08:27)
[2016-05-25] MEDS: HydrALAZINE HCL 10 MG TABLET PO SCH (09:00)
[2016-05-25 11:31] VITALS: BP 145/82
[2016-05-25] MEDS ORDERED: HydrALAZINE HCL 10 MG TABLET PO SCH (16:00)
[2016-05-25 16:01] VITALS: BP 163/111
[2016-05-25] MEDS: LABETALOL HCL 200 MG TABLET PO SCH (17:49)
[2016-05-25] MEDS: HydrALAZINE HCL 50 MG TABLET PO SCH ×2 (17:49→20:28)
[2016-05-25 20:10] VITALS: BP 114/68
[2016-05-25 20:18] VITALS: BP 125/69
[2016-05-26 00:07] VITALS: BP 144/94
[2016-05-26] MEDS: LABETALOL HCL 200 MG TABLET PO SCH ×2 (00:32→09:00)
[2016-05-26] MEDS: ACETAMINOPHEN 325 MG TABLET PO PRN ×2 (00:32→05:02)
[2016-05-26] MEDS: HEPARIN SODIUM,PORCINE 5,000 UNITS/ML VIAL SQ SCH ×2 (00:33→09:19)
[2016-05-26 04:40] VITALS: BP 128/75
[2016-05-26 08:01] VITALS: BP 147/77
[2016-05-26] MEDS: PANTOPRAZOLE SODIUM 40 MG DR TABLET PO SCH (09:17)
[2016-05-26] MEDS: AmLODIPine BESYLATE 10 MG TABLET PO SCH (09:17)
[2016-05-26] MEDS: METHADONE HCL 10 MG TABLET PO SCH (09:17)
[2016-05-26] MEDS: ASPIRIN 81 MG CHEWABLE TABLET PO SCH (09:17)
[2016-05-26] MEDS: FUROSEMIDE 40 MG TABLET PO SCH (09:18)
[2016-05-26] MEDS: CARVEDILOL 12.5 MG TABLET PO SCH (09:18)
[2016-05-26] MEDS: HydrALAZINE HCL 50 MG TABLET PO SCH (09:18)
[2016-05-26] MEDS: MULTIVITAMINS, THERAPEUTIC TABLET PO SCH (09:18)
[2016-05-26] MEDS: DOCUSATE SODIUM 100 MG CAPSULE PO SCH (09:18)
[2016-05-26] MEDS ORDERED: CARV25 PO (15:11)
[2016-05-26] MEDS ORDERED: HYDR50 PO (15:12)
== END 2016-05-26 16:10 | disposition home or self-care (01) | DRG 199 ==
LOC: EMS 21:12 → 5N 05-22 18:02 → 6N 05-24 22:30
PROVIDERS: ADMIT Hospitalist; ATTEND Hospitalist
DX: I16.1 Hypertensive emergency (principal); G93.40 Encephalopathy, unspecified; E11.22 Type 2 diabetes mellitus with diabetic chronic kidney disease; I50.22 Chronic systolic (congestive) heart failure; E44.0 Moderate protein-calorie malnutrition; D63.8 Anemia in other chronic diseases classified elsewhere; S81.802A Unspecified open wound, left lower leg, initial encounter; I13.0 Hypertensive heart and chronic kidney disease with heart failure and stage 1 through stage 4 chronic kidney disease, or unspecified chronic kidney disease; I27.2 Other secondary pulmonary hypertension; J44.9 Chronic obstructive pulmonary disease, unspecified; F17.210 Nicotine dependence, cigarettes, uncomplicated; M79.605 Pain in left leg; N18.3 Chronic kidney disease, stage 3 (moderate); Z60.2 Problems related to living alone; F11.10 Opioid abuse, uncomplicated; F41.9 Anxiety disorder, unspecified; Z91.14 Patient's other noncompliance with medication regimen; Z98.890 Other specified postprocedural states; Z87.828 Personal history of other (healed) physical injury and trauma; Z79.899 Other long term (current) drug therapy; Z79.82 Long term (current) use of aspirin; Z68.24 Body mass index [BMI] 24.0-24.9, adult; Z28.21 Immunization not carried out because of patient refusal; Z86.79 Personal history of other diseases of the circulatory system; Z79.51 Long term (current) use of inhaled steroids; X58.XXXA Exposure to other specified factors, initial encounter; Y93.89 Activity, other specified; Y92.89 Other specified places as the place of occurrence of the external cause; Y99.8 Other external cause status
CPT/HCPCS: 80307; 87081; 93005; 96372; 96374; 96376; 97161; 99285; J0360; J1644; J2270

== ENCOUNTER 2016-07-29 11:59 | Inpatient (IN) | payer OTHER ==
[~2016-07-29] VITALS: Ht 167.6 cm; Wt 68.5 kg
[~2016-07-29 11:59] MED LIST changes: -CARV12 PO; +CARV25 PO; -DSS100 PO; -FURO40 PO; -HYDR10 PO; +HYDR50 PO; -MULT-1192 PO; -PANT40TA25 PO
[2016-07-29] MEDS ORDERED: NITROGLYCERIN 2% (1 GM=INCH) PACKET TP ONE (12:30)
[2016-07-29] MEDS ORDERED: ASPIRIN 325 MG EC TABLET PO ONE (12:30)
[2016-07-29 12:56] LABS: BASOPHILS % (AUTO) 0.1 % (0.0-2.0); EOSINOPHILS % (AUTO) 2.1 % (1.0-6.0); HEMOGLOBIN 12.9 g/dL (13.5-17.5); LYMPHOCYTES # (AUTO) 1.3 K/uL (1.0-4.8); LYMPHOCYTES % (AUTO) 16.3 % (22.0-44.0); MEAN CORPUSCULAR HEMOGLOBIN 24.9 pg (26.0-34.0); MEAN CORPUSCULAR HGB CONC 31.4 G/dL (31.0-37.0); MEAN CORPUSCULAR VOLUME 79 fL (80-100); MONOCYTES # (AUTO) 0.5 K/uL (0.1-1.0); MONOCYTES % (AUTO) 6.4 % (2.0-9.0); NEUTROPHILS # (AUTO) 5.8 K/uL (1.8-7.7); NEUTROPHILS % (AUTO) 75.1 % (40.0-70.0); PLATELET COUNT (AUTO) 221 K/uL (150-450); RED BLOOD CELL COUNT(AUTO) 5.17 MIL/uL (4.50-5.90); RED CELL DISTRIBUTION WIDTH 18.9 % (11.5-14.5); WHITE BLOOD COUNT (AUTO) 7.7 K/uL (4.5-11.0)
[2016-07-29 13:08] LABS: PROTHROMBIN TIME 10.7 SEC (9.4-11.6)
[2016-07-29 13:13] LABS: ANION GAP 10 mmol/L (8-16); CALCIUM, TOTAL 9.2 mg/dL (8.8-10.5); CARBON DIOXIDE 27 mmol/L (22-29); CHLORIDE 100 mmol/L (98-107); CREATININE 1.66 mg/dL (0.60-1.30); GLOMERULAR FILTR. RATE CALC 52 mL/min (>60); SODIUM SERUM 137 mmol/L (136-145); UREA NITROGEN, BLOOD 29 mg/dL (7-18)
[2016-07-29 13:19] LABS: B-TYPE NATRIURETIC PEPTIDE 920 pg/mL (0-100); RBC MORPHOLOGY COMMENT ABNORMAL RBC MORPH
[2016-07-29] MEDS ORDERED: FUROSEMIDE 40 MG/4 ML VIAL IVP ONE (13:30)
[2016-07-29 13:36] LABS: ALANINE AMINOTRANSFERASE 20 U/L (12-78); ALBUMIN 3.6 g/dL (3.4-5.0); ASPARTATE AMINOTRANSFERASE 30 U/L (15-37); BILIRUBIN,TOTAL 0.5 mg/dL (0.1-1.0); CREATINE KINASE, TOTAL 123 U/L (39-308)
[2016-07-29] MEDS ORDERED: 0.9% SODIUM CHLORIDE 10 ML SYRINGE IVP PRN (14:00)
[2016-07-29] MEDS ORDERED: ONDANSETRON HCL 4 MG/2 ML VIAL IVP PRN (14:00)
[2016-07-29] MEDS ORDERED: ACETAMINOPHEN 325 MG TABLET PO PRN ×2 (14:00)
[2016-07-29] MEDS ORDERED: ALBUTEROL SULFATE 2.5 MG/0.5 ML NEB SOLUTION NEB PRN (14:00)
[2016-07-29] MEDS ORDERED: MAGNESIUM HYDROXIDE SUSPENSION 30 ML UDCUP PO PRN (14:00)
[2016-07-29 14:14] LABS: ADD UA MICROSCOPIC YES; APPEARANCE,URINE CLEAR (CLEAR); GLUCOSE, URINE (UA) NEGATIVE (NEGATIVE); KETONES,URINE NEGATIVE (NEGATIVE); LEUKOCYTE ESTERASE ,URINE NEGATIVE (NEGATIVE); OCCULT BLOOD,URINE NEGATIVE (NEGATIVE); PROTEIN,URINE SEE CONFIRM (NEGATIVE)
[2016-07-29] MEDS: ASPIRIN 81 MG CHEWABLE TABLET PO SCH (14:19)
[2016-07-29] MEDS: LOSARTAN POTASSIUM 50 MG TABLET PO SCH ×2 (14:19→21:27)
[2016-07-29] MEDS: AmLODIPine BESYLATE 10 MG TABLET PO SCH (14:19)
[2016-07-29] MEDS: FUROSEMIDE 20 MG/2 ML VIAL IVP SCH ×2 (14:20→21:35)
[2016-07-29 14:25] LABS: SULFOSALICYLIC ACID,URINE 4+ (Negative)
[2016-07-29 14:28] LABS: RBC,URINE 0-2 /HPF (0-2); SQUAMOUS EPITHELIAL CELL,UR Few /LPF (None Seen); WBC,URINE 0-2 /HPF (0-5)
[2016-07-29] MEDS: CloNIDine HCL 0.1 MG TABLET PO PRN (18:30)
[2016-07-29 18:34] VITALS: BP 204/114
[2016-07-29 19:19] VITALS: BP 161/108
[2016-07-29] MEDS: HEPARIN SODIUM,PORCINE 5,000 UNITS/ML VIAL SQ SCH (21:00)
[2016-07-29] MEDS: DOCUSATE SODIUM 100 MG CAPSULE PO SCH (21:00)
[2016-07-29 23:43] VITALS: BP 164/97
[2016-07-30] VITALS (8 sets, daily range): BP systolic 153–189; BP diastolic 98–122
[2016-07-30 05:54] LABS: BASOPHILS % (AUTO) 0.7 % (0.0-2.0); EOSINOPHILS % (AUTO) 2.2 % (1.0-6.0); HEMATOCRIT 39.5 % (41-53); HEMOGLOBIN 12.5 g/dL (13.5-17.5); LYMPHOCYTES # (AUTO) 1.4 K/uL (1.0-4.8); MEAN CORPUSCULAR HEMOGLOBIN 25.3 pg (26.0-34.0); MEAN CORPUSCULAR HGB CONC 31.8 G/dL (31.0-37.0); MEAN CORPUSCULAR VOLUME 80 fL (80-100); MONOCYTES # (AUTO) 0.5 K/uL (0.1-1.0); MONOCYTES % (AUTO) 7.1 % (2.0-9.0); NEUTROPHILS # (AUTO) 4.8 K/uL (1.8-7.7); PLATELET COUNT (AUTO) 227 K/uL (150-450); RED BLOOD CELL COUNT(AUTO) 4.96 MIL/uL (4.50-5.90); RED CELL DISTRIBUTION WIDTH 19.1 % (11.5-14.5); WHITE BLOOD COUNT (AUTO) 6.8 K/uL (4.5-11.0)
[2016-07-30 06:29] LABS: BILIRUBIN,TOTAL 0.3 mg/dL (0.1-1.0); CALCIUM, TOTAL 9.3 mg/dL (8.8-10.5); CREATININE 2.19 mg/dL (0.60-1.30); POTASSIUM 3.5 mmol/L (3.5-5.1)
[2016-07-30 06:30] LABS: ALBUMIN 3.2 g/dL (3.4-5.0); TOTAL PROTEIN, SERUM 7.3 g/dL (6.4-8.2)
[2016-07-30] MEDS: ASPIRIN 81 MG CHEWABLE TABLET PO SCH (08:51)
[2016-07-30] MEDS: HEPARIN SODIUM,PORCINE 5,000 UNITS/ML VIAL SQ SCH ×2 (08:51→20:03)
[2016-07-30] MEDS: FUROSEMIDE 20 MG/2 ML VIAL IVP SCH ×2 (08:51→20:03)
[2016-07-30] MEDS: DOCUSATE SODIUM 100 MG CAPSULE PO SCH ×2 (08:51→20:03)
[2016-07-30] MEDS: LOSARTAN POTASSIUM 50 MG TABLET PO SCH ×2 (08:51→20:03)
[2016-07-30] MEDS: AmLODIPine BESYLATE 10 MG TABLET PO SCH (08:51)
[2016-07-30] MEDS: PANTOPRAZOLE SODIUM 40 MG DR TABLET PO SCH (08:51)
[2016-07-30] MEDS: CloNIDine HCL 0.1 MG TABLET PO PRN ×2 (11:09→20:03)
[2016-07-30] MEDS: OxyCODONE HCL/ACETAMINOPHEN 5-325 MG TABLET PO PRN (18:41)
[2016-07-31] VITALS (7 sets, daily range): BP systolic 147–200; BP diastolic 90–111
[2016-07-31] MEDS: OxyCODONE HCL/ACETAMINOPHEN 5-325 MG TABLET PO PRN ×3 (01:47→16:08)
[2016-07-31 06:37] LABS: CALCIUM, TOTAL 8.3 mg/dL (8.8-10.5); CREATININE 2.14 mg/dL (0.60-1.30); POTASSIUM 3.6 mmol/L (3.5-5.1)
[2016-07-31] MEDS: METHADONE HCL 10 MG TABLET PO SCH (09:49)
[2016-07-31] MEDS: CloNIDine HCL 0.1 MG TABLET PO SCH ×2 (09:50→20:51)
[2016-07-31] MEDS: PANTOPRAZOLE SODIUM 40 MG DR TABLET PO SCH (09:50)
[2016-07-31] MEDS: HEPARIN SODIUM,PORCINE 5,000 UNITS/ML VIAL SQ SCH ×2 (09:50→20:51)
[2016-07-31] MEDS: AmLODIPine BESYLATE 10 MG TABLET PO SCH (09:50)
[2016-07-31] MEDS: ASPIRIN 81 MG CHEWABLE TABLET PO SCH (09:51)
[2016-07-31] MEDS: FUROSEMIDE 20 MG/2 ML VIAL IVP SCH ×2 (09:52→20:51)
[2016-07-31] MEDS: DOCUSATE SODIUM 100 MG CAPSULE PO SCH ×2 (10:00→20:51)
[2016-07-31] MEDS: LOSARTAN POTASSIUM 50 MG TABLET PO SCH ×2 (11:49→20:52)
[2016-07-31] MEDS: CloNIDine HCL 0.1 MG TABLET PO PRN (16:09)
[2016-08-01 02:18] VITALS: BP 148/100
[2016-08-01] MEDS: OxyCODONE HCL/ACETAMINOPHEN 5-325 MG TABLET PO PRN (02:21)
[2016-08-01 04:15] VITALS: BP 161/97
[2016-08-01 07:57] VITALS: BP 156/90
[2016-08-01] MEDS: FUROSEMIDE 20 MG/2 ML VIAL IVP SCH (08:04)
[2016-08-01] MEDS: HEPARIN SODIUM,PORCINE 5,000 UNITS/ML VIAL SQ SCH (08:05)
[2016-08-01] MEDS: METHADONE HCL 10 MG TABLET PO SCH (08:05)
[2016-08-01] MEDS: PANTOPRAZOLE SODIUM 40 MG DR TABLET PO SCH (08:05)
[2016-08-01] MEDS: ASPIRIN 81 MG CHEWABLE TABLET PO SCH (08:06)
[2016-08-01] MEDS: DOCUSATE SODIUM 100 MG CAPSULE PO SCH (08:06)
[2016-08-01] MEDS: CloNIDine HCL 0.1 MG TABLET PO SCH (08:06)
[2016-08-01] MEDS: AmLODIPine BESYLATE 10 MG TABLET PO SCH (08:06)
[2016-08-01] MEDS: LOSARTAN POTASSIUM 50 MG TABLET PO SCH (09:51)
[2016-08-01 11:00] VITALS: BP 152/112
== END 2016-08-01 11:25 | disposition home or self-care (01) | DRG 194 ==
LOC: EMS 12:01 → 5S 17:16
PROVIDERS: ADMIT Internal Medicine; ATTEND Internal Medicine
DX: I13.0 Hypertensive heart and chronic kidney disease with heart failure and stage 1 through stage 4 chronic kidney disease, or unspecified chronic kidney disease (principal); E43 Unspecified severe protein-calorie malnutrition; N17.9 Acute kidney failure, unspecified; N18.3 Chronic kidney disease, stage 3 (moderate); J44.9 Chronic obstructive pulmonary disease, unspecified; I50.23 Acute on chronic systolic (congestive) heart failure; F41.9 Anxiety disorder, unspecified; S81.802A Unspecified open wound, left lower leg, initial encounter; F15.10 Other stimulant abuse, uncomplicated; F11.10 Opioid abuse, uncomplicated; F17.210 Nicotine dependence, cigarettes, uncomplicated; Z79.82 Long term (current) use of aspirin; Z79.899 Other long term (current) drug therapy; Z91.19 Patient's noncompliance with other medical treatment and regimen; Z68.24 Body mass index [BMI] 24.0-24.9, adult; Z82.49 Family history of ischemic heart disease and other diseases of the circulatory system; X58.XXXA Exposure to other specified factors, initial encounter; Y93.89 Activity, other specified; Y92.89 Other specified places as the place of occurrence of the external cause; Y99.8 Other external cause status
CPT/HCPCS: 93005; 96374; 99291; G0480; J1644; J1940

== ENCOUNTER 2016-08-18 09:39 | Inpatient (IN) | payer OTHER ==
[~2016-08-18] VITALS: Ht 177.8 cm; Wt 61.7 kg
[~2016-08-18 09:39] MED LIST changes: +HYDR-2924 PO; -HYDR50 PO
[2016-08-18 10:09] LABS: BASOPHILS % (AUTO) 0.3 % (0.0-2.0); EOSINOPHILS % (AUTO) 1.7 % (1.0-6.0); HEMOGLOBIN 13.5 g/dL (13.5-17.5); LYMPHOCYTES # (AUTO) 1.1 K/uL (1.0-4.8); LYMPHOCYTES % (AUTO) 12.3 % (22.0-44.0); MEAN CORPUSCULAR HEMOGLOBIN 26.3 pg (26.0-34.0); MEAN CORPUSCULAR HGB CONC 32.8 G/dL (31.0-37.0); MEAN CORPUSCULAR VOLUME 80 fL (80-100); MONOCYTES # (AUTO) 0.4 K/uL (0.1-1.0); MONOCYTES % (AUTO) 4.4 % (2.0-9.0); NEUTROPHILS # (AUTO) 7.6 K/uL (1.8-7.7); NEUTROPHILS % (AUTO) 81.3 % (40.0-70.0); PLATELET COUNT (AUTO) 223 K/uL (150-450); RED BLOOD CELL COUNT(AUTO) 5.12 MIL/uL (4.50-5.90); RED CELL DISTRIBUTION WIDTH 18.4 % (11.5-14.5); WHITE BLOOD COUNT (AUTO) 9.3 K/uL (4.5-11.0)
[2016-08-18 10:17] LABS: ANION GAP 10 mmol/L (8-16); CALCIUM, TOTAL 9.3 mg/dL (8.8-10.5); CARBON DIOXIDE 26 mmol/L (22-29); CHLORIDE 101 mmol/L (98-107); CREATININE 1.62 mg/dL (0.60-1.30); GLOMERULAR FILTR. RATE CALC 54 mL/min (>60); POTASSIUM 3.6 mmol/L (3.5-5.1); SODIUM SERUM 137 mmol/L (136-145); UREA NITROGEN, BLOOD 25 mg/dL (7-18)
[2016-08-18 10:27] LABS: B-TYPE NATRIURETIC PEPTIDE 1160 pg/mL (0-100)
[2016-08-18 10:29] LABS: RBC MORPHOLOGY COMMENT ABNORMAL RBC MORPH
[2016-08-18 10:42] LABS: ALANINE AMINOTRANSFERASE 22 U/L (12-78); ALBUMIN 3.6 g/dL (3.4-5.0); ASPARTATE AMINOTRANSFERASE 22 U/L (15-37); BILIRUBIN,TOTAL 0.5 mg/dL (0.1-1.0); CREATINE KINASE MB 2.4 ng/mL (0-5); CREATINE KINASE, TOTAL 123 U/L (39-308); TOTAL PROTEIN, SERUM 7.8 g/dL (6.4-8.2)
[2016-08-18 11:05] LABS: ADD UA MICROSCOPIC YES; APPEARANCE,URINE CLEAR (CLEAR); GLUCOSE, URINE (UA) NEGATIVE (NEGATIVE); KETONES,URINE NEGATIVE (NEGATIVE); LEUKOCYTE ESTERASE ,URINE NEGATIVE (NEGATIVE); OCCULT BLOOD,URINE NEGATIVE (NEGATIVE); PROTEIN,URINE SEE CONFIRM (NEGATIVE)
[2016-08-18 11:07] LABS: RBC,URINE 0-2 /HPF (0-2); SQUAMOUS EPITHELIAL CELL,UR Rare /LPF (None Seen); SULFOSALICYLIC ACID,URINE 4+ (Negative); WBC,URINE 0-2 /HPF (0-5)
[2016-08-18] MEDS ORDERED: NITROGLYCERIN 2% (1 GM=INCH) PACKET TP ONE (12:00)
[2016-08-18] MEDS ORDERED: NITROGLYCERIN 0.4 MG SUBLINGUAL TABLET #25 SL ONE (12:00)
[2016-08-18] MEDS ORDERED: FUROSEMIDE 40 MG/4 ML VIAL IVP ONE (12:00)
[2016-08-18] MEDS ORDERED: IPRATROPIUM BROMIDE 0.5 MG/2.5 ML NEB SOLUTION NEB ONE (12:00)
[2016-08-18] MEDS ORDERED: ALBUTEROL SULFATE 2.5 MG/0.5 ML NEB SOLUTION NEB ONE (12:00)
[2016-08-18] MEDS ORDERED: HydrALAZINE HCL 20 MG/ML VIAL IVP ONE (12:15)
[2016-08-18] MEDS ORDERED: 0.9% SODIUM CHLORIDE 10 ML SYRINGE IVP PRN (13:00)
[2016-08-18] MEDS ORDERED: ONDANSETRON HCL 4 MG/2 ML VIAL IVP PRN (13:00)
[2016-08-18] MEDS ORDERED: LORazepam 2 MG/ML VIAL IVP ONE (13:00)
[2016-08-18] MEDS ORDERED: ACETAMINOPHEN 325 MG TABLET PO PRN (13:00)
[2016-08-18 14:32] VITALS: BP 191/116
[2016-08-18 15:55] VITALS: BP 200/126
[2016-08-18] MEDS: CloNIDine HCL 0.1 MG TABLET PO PRN (16:13)
[2016-08-18 17:00] VITALS: BP 188/122
[2016-08-18 19:43] VITALS: BP 188/130
[2016-08-18 23:37] VITALS: BP 189/124
[2016-08-19] VITALS (7 sets, daily range): BP systolic 145–201; BP diastolic 93–142
[2016-08-19] MEDS: CloNIDine HCL 0.1 MG TABLET PO PRN ×3 (02:11→13:52)
[2016-08-19 05:56] LABS: MONOCYTES # (AUTO) 0.6 K/uL (0.1-1.0); MONOCYTES % (AUTO) 7.4 % (2.0-9.0); RED BLOOD CELL COUNT(AUTO) 4.81 MIL/uL (4.50-5.90)
[2016-08-19 06:02] LABS: BASOPHILS % (AUTO) 0.4 % (0.0-2.0); HEMATOCRIT 38.7 % (41-53); HEMOGLOBIN 12.8 g/dL (13.5-17.5); LYMPHOCYTES # (AUTO) 1.4 K/uL (1.0-4.8); MEAN CORPUSCULAR HEMOGLOBIN 26.6 pg (26.0-34.0); MEAN CORPUSCULAR HGB CONC 33.2 G/dL (31.0-37.0); MEAN CORPUSCULAR VOLUME 80 fL (80-100); NEUTROPHILS # (AUTO) 5.6 K/uL (1.8-7.7); NEUTROPHILS % (AUTO) 71.2 % (40.0-70.0); PLATELET COUNT (AUTO) 211 K/uL (150-450); RED CELL DISTRIBUTION WIDTH 18.2 % (11.5-14.5); WHITE BLOOD COUNT (AUTO) 7.8 K/uL (4.5-11.0)
[2016-08-19 08:02] LABS: ALBUMIN 3.3 g/dL (3.4-5.0); BILIRUBIN,TOTAL 0.4 mg/dL (0.1-1.0); CREATININE 1.81 mg/dL (0.60-1.30); POTASSIUM 4.1 mmol/L (3.5-5.1); TOTAL PROTEIN, SERUM 6.6 g/dL (6.4-8.2)
[2016-08-19] MEDS: AmLODIPine BESYLATE 10 MG TABLET PO SCH (11:25)
[2016-08-19] MEDS ORDERED: ALBUTEROL SULFATE 2.5 MG/0.5 ML NEB SOLUTION NEB PRN (15:30)
[2016-08-19] MEDS ORDERED: ZOLPIDEM TARTRATE 5 MG TABLET PO PRN (15:30)
[2016-08-19] MEDS ORDERED: ACETAMINOPHEN 325 MG TABLET PO PRN (15:30)
[2016-08-19] MEDS ORDERED: IPRATROPIUM BROMIDE 0.5 MG/2.5 ML NEB SOLUTION NEB PRN (15:30)
[2016-08-19] MEDS ORDERED: ONDANSETRON HCL 4 MG/2 ML VIAL IVP PRN (15:30)
[2016-08-19] MEDS ORDERED: MAGNESIUM HYDROXIDE SUSPENSION 30 ML UDCUP PO PRN (15:30)
[2016-08-19] MEDS ORDERED: LOSARTAN POTASSIUM 50 MG TABLET PO ONE (15:30)
[2016-08-19] MEDS ORDERED: OxyCODONE HCL/ACETAMINOPHEN 5-325 MG TABLET PO PRN (15:30)
[2016-08-19] MEDS: HEPARIN SODIUM,PORCINE 5,000 UNITS/ML VIAL SQ SCH ×2 (15:53→23:22)
[2016-08-19] MEDS: HydrALAZINE HCL 50 MG TABLET PO SCH ×2 (15:53→20:14)
[2016-08-19] MEDS: CloNIDine HCL 0.1 MG TABLET PO SCH ×2 (17:22→23:22)
[2016-08-19] MEDS: DOCUSATE SODIUM 100 MG CAPSULE PO SCH (20:14)
[2016-08-19] MEDS: LOSARTAN POTASSIUM 50 MG TABLET PO SCH (20:14)
[2016-08-20 00:08] VITALS: BP 142/74
[2016-08-20 03:58] VITALS: BP 137/86
[2016-08-20 07:29] VITALS: BP 154/92
[2016-08-20] MEDS: HEPARIN SODIUM,PORCINE 5,000 UNITS/ML VIAL SQ SCH ×2 (08:58→16:00)
[2016-08-20] MEDS: CloNIDine HCL 0.1 MG TABLET PO SCH ×2 (08:58→16:10)
[2016-08-20] MEDS: AmLODIPine BESYLATE 10 MG TABLET PO SCH (08:59)
[2016-08-20] MEDS: LOSARTAN POTASSIUM 50 MG TABLET PO SCH (08:59)
[2016-08-20] MEDS: HydrALAZINE HCL 50 MG TABLET PO SCH ×2 (08:59→16:10)
[2016-08-20] MEDS: DOCUSATE SODIUM 100 MG CAPSULE PO SCH (08:59)
[2016-08-20] MEDS ORDERED: PANTOPRAZOLE SODIUM 40 MG/VIAL IVP SCH (09:00)
[2016-08-20] MEDS ORDERED: FUROSEMIDE 40 MG TABLET PO ONE (09:30)
[2016-08-20] MEDS ORDERED: METHADONE HCL 10 MG TABLET PO ONE (13:15)
[2016-08-20 13:28] VITALS: BP 162/109
[2016-08-20 15:33] VITALS: BP 151/97
[2016-08-20] MEDS ORDERED: CLON.1 PO (15:58)
[2016-08-20] MEDS ORDERED: LOSA50TA37 PO (15:59)
[2016-08-20] MEDS ORDERED: FURO20 PO (16:00)
[2016-08-20] MEDS ORDERED: SLOWK8 PO (16:00)
== END 2016-08-20 17:45 | disposition home or self-care (01) | DRG 194 ==
LOC: EMS 09:40 → 5N 12:51
PROVIDERS: ADMIT Hospitalist; ATTEND Hospitalist
DX: I11.0 Hypertensive heart disease with heart failure (principal); F15.10 Other stimulant abuse, uncomplicated; F11.90 Opioid use, unspecified, uncomplicated; I50.9 Heart failure, unspecified; F41.9 Anxiety disorder, unspecified; F17.210 Nicotine dependence, cigarettes, uncomplicated; Z91.14 Patient's other noncompliance with medication regimen; Z79.899 Other long term (current) drug therapy; Z79.82 Long term (current) use of aspirin; Z87.81 Personal history of (healed) traumatic fracture; Z82.49 Family history of ischemic heart disease and other diseases of the circulatory system
CPT/HCPCS: 87081; 93005; 94640; 96374; 96375; 99285; 99406; C9113; J0360; J1644; J1940; J2060; J2405

== ENCOUNTER 2016-09-18 09:19 | Inpatient (IN) | payer OTHER ==
[~2016-09-18] VITALS: Ht 167.6 cm; Wt 64.6 kg
[~2016-09-18 09:19] MED LIST changes: -ASPI81 PO; -CARV25 PO; +CLON.1 PO; +FURO20 PO; +LOSA50TA37 PO; +SLOWK8 PO
[2016-09-18 10:03] LABS: BASOPHILS % (AUTO) 0.2 % (0.0-2.0); HEMOGLOBIN 13.8 g/dL (13.5-17.5); LYMPHOCYTES % (AUTO) 10.1 % (22.0-44.0); MEAN CORPUSCULAR HGB CONC 33.7 G/dL (31.0-37.0); MEAN CORPUSCULAR VOLUME 80 fL (80-100); MONOCYTES # (AUTO) 0.5 K/uL (0.1-1.0); MONOCYTES % (AUTO) 4.6 % (2.0-9.0); NEUTROPHILS # (AUTO) 8.3 K/uL (1.8-7.7); NEUTROPHILS % (AUTO) 83.1 % (40.0-70.0); PLATELET COUNT (AUTO) 169 K/uL (150-450); RED BLOOD CELL COUNT(AUTO) 5.11 MIL/uL (4.50-5.90); RED CELL DISTRIBUTION WIDTH 15.7 % (11.5-14.5)
[2016-09-18 10:13] LABS: ANION GAP 15 mmol/L (8-16); CALCIUM, TOTAL 9.8 mg/dL (8.8-10.5); CARBON DIOXIDE 24 mmol/L (22-29); CHLORIDE 105 mmol/L (98-107); CREATININE 1.89 mg/dL (0.60-1.30); GLOMERULAR FILTR. RATE CALC 45 mL/min (>60); POTASSIUM 3.7 mmol/L (3.5-5.1); SODIUM SERUM 144 mmol/L (136-145); UREA NITROGEN, BLOOD 24 mg/dL (7-18)
[2016-09-18] MEDS ORDERED: NITROGLYCERIN 2% (1 GM=INCH) PACKET TP ONE (10:15)
[2016-09-18] MEDS ORDERED: LABETALOL HCL 5 MG/ML 20 ML VIAL IVP ONE (10:15)
[2016-09-18] MEDS ORDERED: CloNIDine HCL 0.1 MG TABLET PO ONE (10:15)
[2016-09-18 10:17] LABS: PROTHROMBIN TIME 10.8 SEC (9.4-11.6)
[2016-09-18 10:23] LABS: B-TYPE NATRIURETIC PEPTIDE 1950 pg/mL (0-100)
[2016-09-18 10:30] LABS: APPEARANCE,URINE CLEAR (CLEAR); GLUCOSE, URINE (UA) NEGATIVE (NEGATIVE); KETONES,URINE NEGATIVE (NEGATIVE); LEUKOCYTE ESTERASE ,URINE NEGATIVE (NEGATIVE); OCCULT BLOOD,URINE SMALL (NEGATIVE); PROTEIN,URINE SEE CONFIRM (NEGATIVE)
[2016-09-18 10:31] LABS: ADD UA MICROSCOPIC YES
[2016-09-18 10:43] LABS: SULFOSALICYLIC ACID,URINE 3+ (Negative)
[2016-09-18 10:43] LABS: ALANINE AMINOTRANSFERASE 35 U/L (12-78); ALBUMIN 3.7 g/dL (3.4-5.0); ASPARTATE AMINOTRANSFERASE 34 U/L (15-37); BILIRUBIN,TOTAL 0.9 mg/dL (0.1-1.0); CREATINE KINASE MB 2.8 ng/mL (0-5); CREATINE KINASE, TOTAL 218 U/L (39-308); TOTAL PROTEIN, SERUM 8.1 g/dL (6.4-8.2)
[2016-09-18] MEDS ORDERED: FUROSEMIDE 40 MG/4 ML VIAL IVP ONE (10:45)
[2016-09-18 10:46] LABS: RBC,URINE 0-2 /HPF (0-2); SQUAMOUS EPITHELIAL CELL,UR Few /LPF (None Seen); WBC,URINE 0-2 /HPF (0-5)
[2016-09-18] MEDS ORDERED: ONDANSETRON HCL 4 MG/2 ML VIAL IVP PRN (11:30)
[2016-09-18] MEDS ORDERED: 0.9% SODIUM CHLORIDE 10 ML SYRINGE IVP PRN ×2 (11:30→18:30)
[2016-09-18] MEDS ORDERED: ACETAMINOPHEN 325 MG TABLET PO PRN ×2 (11:30→18:30)
[2016-09-18] MEDS ORDERED: HydrALAZINE HCL 20 MG/ML VIAL IVP ONE (14:45)
[2016-09-18] MEDS ORDERED: LORazepam 2 MG TABLET PO ONE (16:30)
[2016-09-18] MEDS ORDERED: HydrALAZINE HCL 25 MG TABLET PO PRN (17:30)
[2016-09-18] MEDS: METHADONE HCL 10 MG TABLET PO SCH (18:05)
[2016-09-18] MEDS: POTASSIUM CHLORIDE 8 MEQ ER TABLET PO SCH (18:05)
[2016-09-18] MEDS ORDERED: OxyCODONE HCL/ACETAMINOPHEN 5-325 MG TABLET PO PRN ×2 (18:30)
[2016-09-18] MEDS ORDERED: MAGNESIUM HYDROXIDE SUSPENSION 30 ML UDCUP PO PRN (18:30)
[2016-09-18 20:29] VITALS: BP 216/164
[2016-09-18] MEDS: LOSARTAN POTASSIUM 50 MG TABLET PO SCH (20:34)
[2016-09-18] MEDS: DOCUSATE SODIUM 100 MG CAPSULE PO SCH (20:34)
[2016-09-18] MEDS: HydrALAZINE HCL 50 MG TABLET PO SCH (20:34)
[2016-09-18] MEDS: AmLODIPine BESYLATE 10 MG TABLET PO SCH (20:34)
[2016-09-18] MEDS: PANTOPRAZOLE SODIUM 40 MG/VIAL IVP SCH (20:35)
[2016-09-18] MEDS ORDERED: CloNIDine HCL 0.1 MG TABLET PO SCH (21:00)
[2016-09-18] MEDS ORDERED: LOSARTAN POTASSIUM 50 MG TABLET PO ONE (21:00)
[2016-09-18 23:12] VITALS: BP 198/136
[2016-09-18] MEDS: CloNIDine HCL 0.1 MG TABLET PO SCH (23:42)
[2016-09-19] VITALS (8 sets, daily range): BP systolic 148–182; BP diastolic 98–118
[2016-09-19] MEDS ORDERED: HydrALAZINE HCL 20 MG/ML VIAL IVP PRN (01:15)
[2016-09-19] MEDS: NIFEdipine 60 MG ER TABLET PO SCH ×2 (01:52→09:00)
[2016-09-19] MEDS: CARVEDILOL 12.5 MG TABLET PO SCH ×3 (01:53→20:48)
[2016-09-19 06:21] LABS: BASOPHILS % (AUTO) 0.5 % (0.0-2.0); EOSINOPHILS % (AUTO) 3.5 % (1.0-6.0); HEMATOCRIT 38.2 % (41-53); HEMOGLOBIN 12.7 g/dL (13.5-17.5); LYMPHOCYTES # (AUTO) 1.3 K/uL (1.0-4.8); LYMPHOCYTES % (AUTO) 16.8 % (22.0-44.0); MEAN CORPUSCULAR HEMOGLOBIN 27.3 pg (26.0-34.0); MEAN CORPUSCULAR HGB CONC 33.1 G/dL (31.0-37.0); MEAN CORPUSCULAR VOLUME 82 fL (80-100); MONOCYTES # (AUTO) 0.7 K/uL (0.1-1.0); MONOCYTES % (AUTO) 8.4 % (2.0-9.0); NEUTROPHILS # (AUTO) 5.6 K/uL (1.8-7.7); NEUTROPHILS % (AUTO) 70.8 % (40.0-70.0); PLATELET COUNT (AUTO) 151 K/uL (150-450); RED BLOOD CELL COUNT(AUTO) 4.64 MIL/uL (4.50-5.90); RED CELL DISTRIBUTION WIDTH 15.5 % (11.5-14.5); WHITE BLOOD COUNT (AUTO) 7.9 K/uL (4.5-11.0)
[2016-09-19 06:37] LABS: ALBUMIN 2.9 g/dL (3.4-5.0); BILIRUBIN,TOTAL 0.7 mg/dL (0.1-1.0); CALCIUM, TOTAL 9.1 mg/dL (8.8-10.5); CREATININE 1.77 mg/dL (0.60-1.30); POTASSIUM 3.6 mmol/L (3.5-5.1); TOTAL PROTEIN, SERUM 6.8 g/dL (6.4-8.2)
[2016-09-19] MEDS: METHADONE HCL 10 MG TABLET PO SCH (08:41)
[2016-09-19] MEDS: FUROSEMIDE 20 MG TABLET PO SCH (08:42)
[2016-09-19] MEDS: AmLODIPine BESYLATE 10 MG TABLET PO SCH (08:42)
[2016-09-19] MEDS: DOCUSATE SODIUM 100 MG CAPSULE PO SCH ×2 (08:42→20:48)
[2016-09-19] MEDS: PANTOPRAZOLE SODIUM 40 MG/VIAL IVP SCH (08:43)
[2016-09-19] MEDS: POTASSIUM CHLORIDE 8 MEQ ER TABLET PO SCH (08:43)
[2016-09-19] MEDS ORDERED: POTASSIUM CHLORIDE 8 MEQ ER TABLET PO ONE (09:00)
[2016-09-19] MEDS ORDERED: METHADONE HCL 10 MG TABLET PO SCH (09:00)
[2016-09-19] MEDS ORDERED: AmLODIPine BESYLATE 5 MG TABLET PO ONE (09:00)
[2016-09-19] MEDS: CloNIDine HCL 0.1 MG TABLET PO SCH ×2 (10:44→16:48)
[2016-09-19] MEDS: LOSARTAN POTASSIUM 50 MG TABLET PO SCH ×2 (10:44→20:48)
[2016-09-19] MEDS: HydrALAZINE HCL 50 MG TABLET PO SCH ×3 (10:44→20:48)
[2016-09-20] VITALS: BP 167/98
[2016-09-20] MEDS: CloNIDine HCL 0.1 MG TABLET PO SCH ×2 (00:11→08:16)
[2016-09-20 03:51] VITALS: BP 149/87
[2016-09-20] MEDS: DOCUSATE SODIUM 100 MG CAPSULE PO SCH (08:16)
[2016-09-20] MEDS: CARVEDILOL 12.5 MG TABLET PO SCH (08:16)
[2016-09-20] MEDS: POTASSIUM CHLORIDE 8 MEQ ER TABLET PO SCH (08:16)
[2016-09-20] MEDS: HydrALAZINE HCL 50 MG TABLET PO SCH (08:16)
[2016-09-20] MEDS: METHADONE HCL 10 MG TABLET PO SCH (08:17)
[2016-09-20] MEDS: PANTOPRAZOLE SODIUM 40 MG/VIAL IVP SCH (08:17)
[2016-09-20 08:41] VITALS: BP 160/74
[2016-09-20] MEDS: FUROSEMIDE 20 MG TABLET PO SCH (10:09)
[2016-09-20] MEDS: AmLODIPine BESYLATE 10 MG TABLET PO SCH (10:09)
[2016-09-20] MEDS: LOSARTAN POTASSIUM 50 MG TABLET PO SCH (10:09)
[2016-09-20 10:10] VITALS: BP 159/97
[2016-09-20 11:27] VITALS: BP 149/86
== END 2016-09-20 15:05 | disposition home or self-care (01) | DRG 776 ==
LOC: EMS 09:21 → 5S 19:02
PROVIDERS: ADMIT Internal Medicine; ATTEND Internal Medicine
DX: F19.10 Other psychoactive substance abuse, uncomplicated (principal); G93.40 Encephalopathy, unspecified; I11.0 Hypertensive heart disease with heart failure; I50.9 Heart failure, unspecified; J44.9 Chronic obstructive pulmonary disease, unspecified; F41.9 Anxiety disorder, unspecified; I25.10 Atherosclerotic heart disease of native coronary artery without angina pectoris; Z91.19 Patient's noncompliance with other medical treatment and regimen; Z82.49 Family history of ischemic heart disease and other diseases of the circulatory system; I16.0 Hypertensive urgency; R07.9 Chest pain, unspecified
CPT/HCPCS: 70450; 87081; 93005; 93306; 96374; 96375; 99285; C9113; J0360; J1940; J3490

== ENCOUNTER 2016-10-08 12:40 | Emergency (ER) | payer OTHER ==
[~2016-10-08] VITALS: Ht 170.2 cm; Wt 65.9 kg
[2016-10-08] MEDS ORDERED: HydrALAZINE HCL 25 MG TABLET PO ONE (16:30)
[2016-10-08] MEDS ORDERED: CloNIDine HCL 0.1 MG TABLET PO ONE (16:30)
[2016-10-08 18:43] VITALS: BP 181/100
== END 2016-10-08 18:45 | disposition home or self-care (01) ==
LOC: EMS 12:42
DX: I11.0 Hypertensive heart disease with heart failure (principal); I50.9 Heart failure, unspecified; F41.9 Anxiety disorder, unspecified; F17.210 Nicotine dependence, cigarettes, uncomplicated; F15.10 Other stimulant abuse, uncomplicated; Z91.14 Patient's other noncompliance with medication regimen
CPT/HCPCS: 99283

== ENCOUNTER 2016-11-28 03:49 | Inpatient (IN) | payer OTHER ==
[~2016-11-28] VITALS: Ht 167.6 cm; Wt 61.5 kg
[~2016-11-28 03:49] MED LIST changes: +CLON-570 PO; -CLON.1 PO; -LOSA50TA37 PO; -METH10 PO; -SLOWK8 PO
[2016-11-28] MEDS ORDERED: LABETALOL HCL 5 MG/ML 20 ML VIAL IVP ONE (05:15)
[2016-11-28 05:45] LABS: BASOPHILS % (AUTO) 0.2 % (0.0-2.0); EOSINOPHILS % (AUTO) 0.8 % (1.0-6.0); HEMATOCRIT 39.9 % (41-53); HEMOGLOBIN 13.5 g/dL (13.5-17.5); LYMPHOCYTES % (AUTO) 10.2 % (22.0-44.0); MEAN CORPUSCULAR HEMOGLOBIN 27.8 pg (26.0-34.0); MEAN CORPUSCULAR HGB CONC 33.8 G/dL (31.0-37.0); MEAN CORPUSCULAR VOLUME 82 fL (80-100); MONOCYTES # (AUTO) 0.3 K/uL (0.1-1.0); MONOCYTES % (AUTO) 3.2 % (2.0-9.0); NEUTROPHILS # (AUTO) 8.5 K/uL (1.8-7.7); PLATELET COUNT (AUTO) 265 K/uL (150-450); RED BLOOD CELL COUNT(AUTO) 4.85 MIL/uL (4.50-5.90); RED CELL DISTRIBUTION WIDTH 15.1 % (11.5-14.5)
[2016-11-28 05:46] LABS: NEUTROPHILS % (AUTO) 85.6 % (40.0-70.0)
[2016-11-28 05:51] LABS: ANION GAP 12 mmol/L (8-16); CALCIUM, TOTAL 9.8 mg/dL (8.8-10.5); CARBON DIOXIDE 29 mmol/L (22-29); CHLORIDE 100 mmol/L (98-107); CREATININE 2.38 mg/dL (0.60-1.30); GLOMERULAR FILTR. RATE CALC 34 mL/min (>60); POTASSIUM 3.9 mmol/L (3.5-5.1); SODIUM SERUM 141 mmol/L (136-145); UREA NITROGEN, BLOOD 28 mg/dL (7-18)
[2016-11-28 05:57] LABS: ALANINE AMINOTRANSFERASE 23 U/L (12-78); ALBUMIN 4.1 g/dL (3.4-5.0); ASPARTATE AMINOTRANSFERASE 25 U/L (15-37); BILIRUBIN,TOTAL 0.6 mg/dL (0.1-1.0); TOTAL PROTEIN, SERUM 8.8 g/dL (6.4-8.2)
[2016-11-28] MEDS ORDERED: CloNIDine HCL 0.1 MG TABLET PO ONE (06:00)
[2016-11-28] MEDS ORDERED: HydrALAZINE HCL 20 MG/ML VIAL IVP ONE (06:00)
[2016-11-28] MEDS: NITROPRUSSIDE SODIUM 50 MG in DEXTROSE 5%-WATER 248 ML IV PRN ×5 (07:29→23:33)
[2016-11-28 11:30] VITALS: BP 201/99
[2016-11-28 12:00] VITALS: BP 202/129
[2016-11-28] MEDS ORDERED: METHADONE HCL 10 MG TABLET PO ONE (12:30)
[2016-11-28 16:00] VITALS: BP 200/124
[2016-11-28] MEDS: FUROSEMIDE 20 MG/2 ML VIAL IVP SCH (21:54)
[2016-11-28] MEDS: CloNIDine HCL 0.1 MG TABLET PO SCH ×2 (21:54→23:57)
[2016-11-28] MEDS: AmLODIPine BESYLATE 10 MG TABLET PO SCH (21:54)
[2016-11-28] MEDS: HydrALAZINE HCL 50 MG TABLET PO SCH (21:54)
[2016-11-28 22:13] VITALS: BP 183/104
[2016-11-28 23:15] VITALS: BP 158/101
[2016-11-29] VITALS (8 sets, daily range): BP systolic 123–178; BP diastolic 69–111
[2016-11-29] MEDS ORDERED: ALBUTEROL SULFATE 2.5 MG/0.5 ML NEB SOLUTION NEB PRN
[2016-11-29] MEDS ORDERED: ONDANSETRON HCL 4 MG/2 ML VIAL IVP PRN
[2016-11-29] MEDS ORDERED: MAGNESIUM HYDROXIDE SUSPENSION 30 ML UDCUP PO PRN
[2016-11-29] MEDS ORDERED: MORPHINE SULFATE 2 MG/ML SYRINGE IVP PRN
[2016-11-29] MEDS ORDERED: HYDROCODONE/ACETAMINOPHEN 5-325 MG TABLET PO PRN
[2016-11-29] MEDS ORDERED: ACETAMINOPHEN 325 MG TABLET PO PRN
[2016-11-29] MEDS ORDERED: BISACODYL 10 MG RECTAL RECTAL SUPPOSITORY PR PRN
[2016-11-29] MEDS ORDERED: ZOLPIDEM TARTRATE 5 MG TABLET PO PRN
[2016-11-29] MEDS ORDERED: IPRATROPIUM BROMIDE 0.5 MG/2.5 ML NEB SOLUTION NEB PRN
[2016-11-29] MEDS: HEPARIN SODIUM,PORCINE 5,000 UNITS/ML VIAL SQ SCH ×3 (00:15→16:00)
[2016-11-29] MEDS: CARVEDILOL 12.5 MG TABLET PO SCH ×3 (00:15→20:09)
[2016-11-29] MEDS: CloNIDine HCL 0.1 MG TABLET PO PRN ×2 (00:21→06:04)
[2016-11-29] MEDS: NITROPRUSSIDE SODIUM 50 MG in DEXTROSE 5%-WATER 248 ML IV PRN ×2 (05:00→09:44)
[2016-11-29] MEDS: HydrALAZINE HCL 50 MG TABLET PO SCH ×3 (08:22→20:09)
[2016-11-29] MEDS: AmLODIPine BESYLATE 10 MG TABLET PO SCH (08:23)
[2016-11-29] MEDS: PANTOPRAZOLE SODIUM 40 MG/VIAL IVP SCH (08:23)
[2016-11-29] MEDS: CloNIDine HCL 0.2 MG TABLET PO SCH ×2 (08:23→16:04)
[2016-11-29] MEDS: DOCUSATE SODIUM 100 MG CAPSULE PO SCH ×2 (08:23→20:09)
[2016-11-29] MEDS: FUROSEMIDE 20 MG/2 ML VIAL IVP SCH (08:23)
[2016-11-29] MEDS ORDERED: METHADONE HCL 10 MG TABLET PO ONE (09:00)
[2016-11-30] VITALS: BP 151/111
[2016-11-30] MEDS: CloNIDine HCL 0.2 MG TABLET PO SCH ×3 (01:00→15:48)
[2016-11-30] MEDS: HEPARIN SODIUM,PORCINE 5,000 UNITS/ML VIAL SQ SCH ×3 (01:01→15:48)
[2016-11-30 04:00] VITALS: BP 142/99
[2016-11-30 08:00] VITALS: BP 146/86
[2016-11-30] MEDS: PANTOPRAZOLE SODIUM 40 MG/VIAL IVP SCH (08:38)
[2016-11-30] MEDS: FUROSEMIDE 20 MG/2 ML VIAL IVP SCH (08:38)
[2016-11-30] MEDS: DOCUSATE SODIUM 100 MG CAPSULE PO SCH (08:38)
[2016-11-30] MEDS: CARVEDILOL 12.5 MG TABLET PO SCH (08:38)
[2016-11-30] MEDS: HydrALAZINE HCL 50 MG TABLET PO SCH ×2 (08:38→15:48)
[2016-11-30] MEDS: AmLODIPine BESYLATE 10 MG TABLET PO SCH (09:15)
[2016-11-30 12:00] VITALS: BP 123/71
[2016-11-30] MEDS ORDERED: CLON.2 PO (15:40)
[2016-11-30] MEDS ORDERED: HYDR-2924 PO (15:40)
[2016-11-30] MEDS ORDERED: CARV12 PO (15:40)
[2016-11-30] MEDS ORDERED: AMLO10TA55 PO (15:40)
[2016-11-30 16:00] VITALS: BP 136/83
== END 2016-11-30 18:20 | disposition home or self-care (01) | DRG 199 ==
LOC: EMS 03:50 → ICU 10:01
PROVIDERS: ADMIT Hospitalist; ATTEND Hospitalist
DX: I16.1 Hypertensive emergency (principal); I50.9 Heart failure, unspecified; I11.0 Hypertensive heart disease with heart failure; F41.9 Anxiety disorder, unspecified; R51 Headache; F17.210 Nicotine dependence, cigarettes, uncomplicated; F19.10 Other psychoactive substance abuse, uncomplicated; Z91.19 Patient's noncompliance with other medical treatment and regimen
CPT/HCPCS: 87081; 93005; 96374; 96375; 99291; 99406; C9113; G0480; J0360; J1644; J1940; J3490; J7060

== ENCOUNTER 2017-01-25 11:53 | Inpatient (IN) | payer OTHER ==
[~2017-01-25] VITALS: Ht 172.7 cm; Wt 58.7 kg
[~2017-01-25 11:53] MED LIST changes: +AMLO10TA55 PO; +CARV12 PO; -CLON-570 PO; +CLON.2 PO
[2017-01-25] MEDS ORDERED: CloNIDine HCL 0.2 MG TABLET PO ONE (13:30)
[2017-01-25] MEDS ORDERED: AmLODIPine BESYLATE 5 MG TABLET PO ONE (13:30)
[2017-01-25] MEDS ORDERED: HydrALAZINE HCL 25 MG TABLET PO ONE (13:30)
[2017-01-25 13:43] LABS: BASOPHILS % (AUTO) 0.3 % (0.0-2.0); EOSINOPHILS % (AUTO) 2.5 % (1.0-6.0); HEMATOCRIT 34.8 % (41-53); HEMOGLOBIN 11.8 g/dL (13.5-17.5); LYMPHOCYTES % (AUTO) 11.4 % (22.0-44.0); MEAN CORPUSCULAR HEMOGLOBIN 27.8 pg (26.0-34.0); MEAN CORPUSCULAR HGB CONC 33.9 G/dL (31.0-37.0); MEAN CORPUSCULAR VOLUME 82 fL (80-100); MONOCYTES # (AUTO) 0.4 K/uL (0.1-1.0); MONOCYTES % (AUTO) 4.3 % (2.0-9.0); NEUTROPHILS % (AUTO) 81.5 % (40.0-70.0); PLATELET COUNT (AUTO) 229 K/uL (150-450); RED BLOOD CELL COUNT(AUTO) 4.24 MIL/uL (4.50-5.90); RED CELL DISTRIBUTION WIDTH 14.4 % (11.5-14.5); WHITE BLOOD COUNT (AUTO) 8.6 K/uL (4.5-11.0)
[2017-01-25] MEDS ORDERED: METHADONE HCL 10 MG TABLET PO ONE (14:00)
[2017-01-25 14:23] LABS: CALCIUM, TOTAL 8.9 mg/dL (8.8-10.5); CREATININE 1.79 mg/dL (0.60-1.30); POTASSIUM 4.8 mmol/L (3.5-5.1)
[2017-01-25 14:29] LABS: BILIRUBIN,TOTAL 0.4 mg/dL (0.1-1.0); TOTAL PROTEIN, SERUM 7.2 g/dL (6.4-8.2)
[2017-01-25] MEDS ORDERED: NITROGLYCERIN 50 MG/D5% WATER 250 ML IV PRN (15:29)
[2017-01-25] MEDS ORDERED: FUROSEMIDE 40 MG/4 ML VIAL IVP ONE (15:30)
[2017-01-25] MEDS ORDERED: BISACODYL 10 MG RECTAL RECTAL SUPPOSITORY PR PRN (16:00)
[2017-01-25] MEDS ORDERED: ACETAMINOPHEN 325 MG TABLET PO PRN ×2 (16:00)
[2017-01-25] MEDS ORDERED: MAGNESIUM HYDROXIDE SUSPENSION 30 ML UDCUP PO PRN (16:00)
[2017-01-25] MEDS ORDERED: 0.9% SODIUM CHLORIDE 10 ML SYRINGE IVP PRN (16:00)
[2017-01-25] MEDS ORDERED: ONDANSETRON HCL 4 MG/2 ML VIAL IVP PRN (16:00)
[2017-01-25 17:00] VITALS: BP 221/134
[2017-01-25] MEDS: NITROGLYCERIN 50 MG/D5% WATER 250 ML IV PRN (17:00)
[2017-01-25] MEDS: HEPARIN SODIUM,PORCINE 5,000 UNITS/ML VIAL SQ SCH ×2 (17:33→23:58)
[2017-01-25] MEDS: CloNIDine HCL 0.2 MG TABLET PO SCH ×2 (17:34→23:58)
[2017-01-25] MEDS: HydrALAZINE HCL 50 MG TABLET PO SCH ×2 (17:40→20:21)
[2017-01-25 20:00] VITALS: BP 190/101
[2017-01-25] MEDS: CARVEDILOL 12.5 MG TABLET PO SCH (20:21)
[2017-01-25] MEDS: ZOLPIDEM TARTRATE 5 MG TABLET PO PRN (20:21)
[2017-01-25] MEDS: FUROSEMIDE 40 MG/4 ML VIAL IVP SCH (20:21)
[2017-01-25] MEDS: DOCUSATE SODIUM 100 MG CAPSULE PO SCH (20:21)
[2017-01-25 21:05] VITALS: BP 177/106
[2017-01-25] MEDS: MORPHINE SULFATE 2 MG/ML SYRINGE IVP PRN (21:09)
[2017-01-25 21:20] VITALS: BP 175/105
[2017-01-26] VITALS (16 sets, daily range): BP systolic 135–213; BP diastolic 83–130
[2017-01-26] MEDS: MORPHINE SULFATE 2 MG/ML SYRINGE IVP PRN ×2 (01:26→06:48)
[2017-01-26] MEDS: HYDROCODONE/ACETAMINOPHEN 5-325 MG TABLET PO PRN ×4 (04:03→21:00)
[2017-01-26] MEDS: NITROGLYCERIN 50 MG/D5% WATER 250 ML IV PRN (04:04)
[2017-01-26 05:15] LABS: CALCIUM, TOTAL 8.9 mg/dL (8.8-10.5); CREATININE 1.82 mg/dL (0.60-1.30); POTASSIUM 4.1 mmol/L (3.5-5.1)
[2017-01-26 06:46] LABS: BASOPHILS % (AUTO) 0.6 % (0.0-2.0); EOSINOPHILS % (AUTO) 4.2 % (1.0-6.0); HEMATOCRIT 31.5 % (41-53); HEMOGLOBIN 10.5 g/dL (13.5-17.5); LYMPHOCYTES # (AUTO) 1.2 K/uL (1.0-4.8); LYMPHOCYTES % (AUTO) 12.8 % (22.0-44.0); MEAN CORPUSCULAR HEMOGLOBIN 27.6 pg (26.0-34.0); MEAN CORPUSCULAR HGB CONC 33.4 G/dL (31.0-37.0); MEAN CORPUSCULAR VOLUME 83 fL (80-100); MONOCYTES # (AUTO) 0.6 K/uL (0.1-1.0); MONOCYTES % (AUTO) 7.1 % (2.0-9.0); NEUTROPHILS # (AUTO) 6.8 K/uL (1.8-7.7); NEUTROPHILS % (AUTO) 75.3 % (40.0-70.0); PLATELET COUNT (AUTO) 211 K/uL (150-450); RED BLOOD CELL COUNT(AUTO) 3.82 MIL/uL (4.50-5.90); RED CELL DISTRIBUTION WIDTH 14.4 % (11.5-14.5)
[2017-01-26] MEDS ORDERED: HydrALAZINE HCL 20 MG/ML VIAL IVP PRN (07:15)
[2017-01-26] MEDS: CloNIDine HCL 0.2 MG TABLET PO SCH ×3 (07:26→23:34)
[2017-01-26] MEDS: CARVEDILOL 12.5 MG TABLET PO SCH (07:26)
[2017-01-26] MEDS: HydrALAZINE HCL 50 MG TABLET PO SCH ×3 (07:26→20:05)
[2017-01-26] MEDS: AmLODIPine BESYLATE 10 MG TABLET PO SCH (07:26)
[2017-01-26] MEDS ORDERED: NICARDipine 20 MG/DEXT,ISO-OSM 200 ML IV PRN (08:15)
[2017-01-26] MEDS: FUROSEMIDE 40 MG/4 ML VIAL IVP SCH (09:05)
[2017-01-26] MEDS: PANTOPRAZOLE SODIUM 40 MG DR TABLET PO SCH (09:06)
[2017-01-26] MEDS: LISINOPRIL 10 MG TABLET PO SCH (09:06)
[2017-01-26] MEDS: CARVEDILOL 25 MG TABLET PO SCH ×2 (09:06→20:05)
[2017-01-26] MEDS: DOCUSATE SODIUM 100 MG CAPSULE PO SCH ×2 (09:06→20:05)
[2017-01-26] MEDS: HEPARIN SODIUM,PORCINE 5,000 UNITS/ML VIAL SQ SCH ×3 (09:06→23:35)
[2017-01-26] MEDS: FUROSEMIDE 40 MG TABLET PO SCH (20:06)
[2017-01-26] MEDS: ZOLPIDEM TARTRATE 5 MG TABLET PO PRN (20:06)
[2017-01-27] VITALS: BP 145/79
[2017-01-27 04:00] VITALS: BP 137/104
[2017-01-27 06:04] LABS: CALCIUM, TOTAL 9.1 mg/dL (8.8-10.5); CREATININE 1.94 mg/dL (0.60-1.30); POTASSIUM 4.5 mmol/L (3.5-5.1)
[2017-01-27 06:57] LABS: BASOPHILS # (AUTO) 0.03 K/uL (0.00-0.20); BASOPHILS % (AUTO) 0.4 % (0.0-2.0); EOSINOPHILS # (AUTO) 0.32 K/uL (0.00-0.70); HEMATOCRIT 34.9 % (41-53); HEMOGLOBIN 11.5 g/dL (13.5-17.5); LYMPHOCYTES # (AUTO) 1.2 K/uL (1.0-4.8); LYMPHOCYTES % (AUTO) 16.4 % (22.0-44.0); MEAN CORPUSCULAR HEMOGLOBIN 27.3 pg (26.0-34.0); MEAN CORPUSCULAR HGB CONC 32.9 G/dL (31.0-37.0); MEAN CORPUSCULAR VOLUME 83 fL (80-100); MONOCYTES # (AUTO) 0.7 K/uL (0.1-1.0); MONOCYTES % (AUTO) 9.1 % (2.0-9.0); NEUTROPHILS % (AUTO) 69.6 % (40.0-70.0); PLATELET COUNT (AUTO) 221 K/uL (150-450); RED BLOOD CELL COUNT(AUTO) 4.22 MIL/uL (4.50-5.90); RED CELL DISTRIBUTION WIDTH 14.2 % (11.5-14.5); WHITE BLOOD COUNT (AUTO) 7.1 K/uL (4.5-11.0)
[2017-01-27] MEDS: HEPARIN SODIUM,PORCINE 5,000 UNITS/ML VIAL SQ SCH (08:00)
[2017-01-27] MEDS: CloNIDine HCL 0.2 MG TABLET PO SCH (08:00)
[2017-01-27] MEDS: AmLODIPine BESYLATE 10 MG TABLET PO SCH (09:00)
[2017-01-27] MEDS: DOCUSATE SODIUM 100 MG CAPSULE PO SCH (09:00)
[2017-01-27] MEDS: LISINOPRIL 10 MG TABLET PO SCH (09:00)
[2017-01-27] MEDS: HydrALAZINE HCL 50 MG TABLET PO SCH (09:00)
[2017-01-27] MEDS: PANTOPRAZOLE SODIUM 40 MG DR TABLET PO SCH (09:00)
[2017-01-27] MEDS: CARVEDILOL 25 MG TABLET PO SCH (09:00)
[2017-01-27] MEDS: FUROSEMIDE 40 MG TABLET PO SCH (09:00)
[2017-01-27 09:52] VITALS: BP 126/75
[2017-01-27 11:09] VITALS: BP 153/94
[2017-01-27] MEDS ORDERED: LISI10TA7 PO (13:30)
[2017-01-27] MEDS ORDERED: CARV25 PO (13:30)
[2017-01-27] MEDS ORDERED: FURO40 PO (13:30)
[2017-01-27] MEDS ORDERED: AMLO10TA55 PO (13:30)
[2017-01-27] MEDS ORDERED: CLON.2 PO (13:30)
[2017-01-27] MEDS ORDERED: HYDR-2924 PO (13:30)
[2017-01-27 15:22] VITALS: BP 139/89
== END 2017-01-27 16:00 | disposition home or self-care (01) | DRG 199 ==
LOC: EMS 11:54 → ICU 15:55 → 5N 01-27 09:35
PROVIDERS: ADMIT Internal Medicine; ATTEND Internal Medicine
DX: I16.1 Hypertensive emergency (principal); I50.23 Acute on chronic systolic (congestive) heart failure; N17.9 Acute kidney failure, unspecified; I13.0 Hypertensive heart and chronic kidney disease with heart failure and stage 1 through stage 4 chronic kidney disease, or unspecified chronic kidney disease; S81.802A Unspecified open wound, left lower leg, initial encounter; F15.10 Other stimulant abuse, uncomplicated; D64.9 Anemia, unspecified; F19.90 Other psychoactive substance use, unspecified, uncomplicated; F17.200 Nicotine dependence, unspecified, uncomplicated; N18.9 Chronic kidney disease, unspecified; Z91.19 Patient's noncompliance with other medical treatment and regimen
CPT/HCPCS: 83615; 87040; 87081; 93005; 93306; 96374; 99291; J0360; J1644; J1940; J2270; J3490

== ENCOUNTER 2017-02-22 12:57 | Emergency (ER) | payer OTHER ==
[~2017-02-22] VITALS: Ht 177.8 cm; Wt 79.5 kg
[~2017-02-22 12:57] MED LIST changes: -AMLO-512 PO; -CARV12 PO; +CARV25 PO; -FURO20 PO; +FURO40 PO; +LISI10TA7 PO
[2017-02-22] MEDS ORDERED: 0.9% SODIUM CHLORIDE 10 ML SYRINGE IVP PRN (15:15)
[2017-02-22] MEDS ORDERED: CloNIDine HCL 0.2 MG TABLET PO ONE (15:15)
[2017-02-22 15:27] LABS: BASOPHILS % (AUTO) 0.1 % (0.0-2.0); EOSINOPHILS % (AUTO) 2.4 % (1.0-6.0); HEMATOCRIT 32.5 % (41-53); HEMOGLOBIN 10.8 g/dL (13.5-17.5); LYMPHOCYTES # (AUTO) 0.6 K/uL (1.0-4.8); LYMPHOCYTES % (AUTO) 7.5 % (22.0-44.0); MEAN CORPUSCULAR HEMOGLOBIN 27.2 pg (26.0-34.0); MEAN CORPUSCULAR HGB CONC 33.3 G/dL (31.0-37.0); MEAN CORPUSCULAR VOLUME 82 fL (80-100); MONOCYTES # (AUTO) 0.6 K/uL (0.1-1.0); MONOCYTES % (AUTO) 7.3 % (2.0-9.0); NEUTROPHILS # (AUTO) 6.7 K/uL (1.8-7.7); NEUTROPHILS % (AUTO) 82.7 % (40.0-70.0); PLATELET COUNT (AUTO) 228 K/uL (150-450); RED BLOOD CELL COUNT(AUTO) 3.97 MIL/uL (4.50-5.90); RED CELL DISTRIBUTION WIDTH 14.4 % (11.5-14.5)
[2017-02-22 15:41] LABS: APPEARANCE,URINE CLEAR (CLEAR); BILIRUBIN,URINE NEGATIVE (NEGATIVE); GLUCOSE, URINE (UA) NEGATIVE (NEGATIVE); KETONES,URINE NEGATIVE (NEGATIVE); LEUKOCYTE ESTERASE ,URINE NEGATIVE (NEGATIVE); NITRATE,URINE NEGATIVE (NEGATIVE); OCCULT BLOOD,URINE NEGATIVE (NEGATIVE); PH,URINE 5.5 (5.0-8.0); UROBILINOGEN,URINE 0.2 mg/dL (<=1.0)
[2017-02-22 15:42] LABS: INR 1.1 (0.9-1.1); PROTHROMBIN TIME 11.2 SEC (9.4-11.6)
[2017-02-22 15:43] LABS: ANION GAP 11 mmol/L (8-16); CALCIUM, TOTAL 8.7 mg/dL (8.8-10.5); CARBON DIOXIDE 27 mmol/L (22-29); CHLORIDE 105 mmol/L (98-107); CREATININE 2.64 mg/dL (0.60-1.30); GLOMERULAR FILTR. RATE CALC 30 mL/min (>60); GLUCOSE,RANDOM 109 mg/dL (70-110); POTASSIUM 3.5 mmol/L (3.5-5.1); SODIUM SERUM 143 mmol/L (136-145); UREA NITROGEN, BLOOD 31 mg/dL (7-18)
[2017-02-22 15:47] LABS: AMPHET/METH SCREEN,URINE POSITIVE (NEGATIVE); BARBITURATE SCREEN, URINE NEGATIVE (NEGATIVE); BENZODIAZEPINES SCREEN,URINE NEGATIVE (NEGATIVE); CANNABINOID SCREEN,URINE NEGATIVE (NEGATIVE); COCAINE SCREEN,URINE NEGATIVE (NEGATIVE); METHADONE SCREEN, URINE POSITIVE (NEGATIVE); OPIATE SCREEN,URINE NEGATIVE (NEGATIVE)
[2017-02-22 15:48] LABS: ALANINE AMINOTRANSFERASE 19 U/L (12-78); ALBUMIN 2.8 g/dL (3.4-5.0); ALKALINE PHOSPHATASE 87 U/L (46-116); ASPARTATE AMINOTRANSFERASE 18 U/L (15-37); BILIRUBIN,TOTAL 0.3 mg/dL (0.1-1.0); CREATINE KINASE, TOTAL 64 U/L (39-308); TOTAL PROTEIN, SERUM 7.2 g/dL (6.4-8.2)
[2017-02-22 15:49] LABS: PHENCYCLIDINE SCREEN,URINE NEGATIVE (NEGATIVE)
[2017-02-22 15:59] LABS: LACTIC ACID 0.9 mmol/L (0.4-2.0)
[2017-02-22 16:07] LABS: PROTEIN,URINE NEGATIVE (NEGATIVE)
[2017-02-22] MEDS ORDERED: LIDOCAINE HCL 1% 10 ML VIAL INJ ONE (16:30)
[2017-02-22] MEDS ORDERED: CefTRIAXone 1 GM/DEXTROSE 50 ML IV ONE (16:45)
[2017-02-22 17:12] LABS: B-TYPE NATRIURETIC PEPTIDE 1340 pg/mL (0-100)
[2017-02-22] MEDS ORDERED: IBUPROFEN 800 MG TABLET PO ONE (17:45)
[2017-02-22] MEDS ORDERED: IBUPROFEN 600 MG TABLET PO ONE (17:45)
[2017-02-22 18:26] VITALS: BP 205/126
== END 2017-02-22 18:45 | disposition home or self-care (01) ==
LOC: EMS 12:59
DX: L02.416 Cutaneous abscess of left lower limb (principal); I11.0 Hypertensive heart disease with heart failure; I50.9 Heart failure, unspecified; F17.210 Nicotine dependence, cigarettes, uncomplicated; F15.90 Other stimulant use, unspecified, uncomplicated; F11.90 Opioid use, unspecified, uncomplicated; Y08.89XA Assault by other specified means, initial encounter; Y93.89 Activity, other specified; Y92.89 Other specified places as the place of occurrence of the external cause; Y99.8 Other external cause status
CPT/HCPCS: 10060; 36415; 73590; 80053; 80307; 81003; 82550; 83605; 83880; 84484; 85025; 85610; 87040; 96365; 99285; J0696; J3490; J7030; 96375

== ENCOUNTER 2017-03-09 18:36 | Inpatient (IN) | payer OTHER ==
[~2017-03-09] VITALS: Ht 165.1 cm; Wt 73.1 kg
[2017-03-09] MEDS ORDERED: HydrALAZINE HCL 20 MG/ML VIAL IVP ONE (19:45)
[2017-03-09] MEDS ORDERED: CloNIDine HCL 0.1 MG TABLET PO ONE (19:45)
[2017-03-09 19:56] LABS: BASOPHILS # (AUTO) 0.11 K/uL (0.00-0.20); BASOPHILS % (AUTO) 1.4 % (0.0-2.0); EOSINOPHILS # (AUTO) 0.11 K/uL (0.00-0.70); EOSINOPHILS % (AUTO) 1.33 % (1.0-6.0); HEMATOCRIT 35.3 % (41-53); HEMOGLOBIN 11.7 g/dL (13.5-17.5); LYMPHOCYTES # (AUTO) 1.2 K/uL (1.0-4.8); LYMPHOCYTES % (AUTO) 14.6 % (22.0-44.0); MEAN CORPUSCULAR HEMOGLOBIN 27.4 pg (26.0-34.0); MEAN CORPUSCULAR HGB CONC 33.2 G/dL (31.0-37.0); MEAN CORPUSCULAR VOLUME 83 fL (80-100); MONOCYTES # (AUTO) 0.5 K/uL (0.1-1.0); MONOCYTES % (AUTO) 5.8 % (2.0-9.0); NEUTROPHILS # (AUTO) 6.4 K/uL (1.8-7.7); PLATELET COUNT (AUTO) 359 K/uL (150-450); RED BLOOD CELL COUNT(AUTO) 4.28 MIL/uL (4.50-5.90); RED CELL DISTRIBUTION WIDTH 17.4 % (11.5-14.5)
[2017-03-09 20:09] LABS: INR 1.1 (0.9-1.1); PROTHROMBIN TIME 11.7 SEC (9.4-11.6)
[2017-03-09 20:21] LABS: B-TYPE NATRIURETIC PEPTIDE > 5000 pg/mL (0-100)
[2017-03-09 20:25] LABS: ANION GAP 12 mmol/L (8-16); CARBON DIOXIDE 25 mmol/L (22-29); CHLORIDE 104 mmol/L (98-107); CREATININE 2.63 mg/dL (0.60-1.30); GLOMERULAR FILTR. RATE CALC 31 mL/min (>60); GLUCOSE,RANDOM 125 mg/dL (70-110); POTASSIUM 3.7 mmol/L (3.5-5.1); SODIUM SERUM 141 mmol/L (136-145); UREA NITROGEN, BLOOD 56 mg/dL (7-18)
[2017-03-09 20:44] LABS: ALANINE AMINOTRANSFERASE 257 U/L (12-78); ALBUMIN 3.2 g/dL (3.4-5.0); ALKALINE PHOSPHATASE 177 U/L (46-116); ASPARTATE AMINOTRANSFERASE 135 U/L (15-37); BILIRUBIN,TOTAL 0.5 mg/dL (0.1-1.0); CREATINE KINASE MB 4.9 ng/mL (0-5); CREATINE KINASE, TOTAL 180 U/L (39-308); TOTAL PROTEIN, SERUM 7.8 g/dL (6.4-8.2)
[2017-03-09] MEDS ORDERED: NITROPRUSSIDE SODIUM 50 MG in DEXTROSE 5%-WATER 248 ML IV PRN (20:45)
[2017-03-09] MEDS ORDERED: ASPIRIN 325 MG TABLET PO ONE (20:45)
[2017-03-09] MEDS ORDERED: FUROSEMIDE 40 MG/4 ML VIAL IVP ONE (21:00)
[2017-03-09 21:15] LABS: APPEARANCE,URINE CLEAR (CLEAR); BILIRUBIN,URINE NEGATIVE (NEGATIVE); GLUCOSE, URINE (UA) NEGATIVE (NEGATIVE); KETONES,URINE NEGATIVE (NEGATIVE); LEUKOCYTE ESTERASE ,URINE NEGATIVE (NEGATIVE); NITRATE,URINE NEGATIVE (NEGATIVE); OCCULT BLOOD,URINE TRACE (NEGATIVE); PROTEIN,URINE SEE CONFIRM (NEGATIVE)
[2017-03-09 21:29] LABS: AMPHET/METH SCREEN,URINE POSITIVE (NEGATIVE); BARBITURATE SCREEN, URINE NEGATIVE (NEGATIVE); BENZODIAZEPINES SCREEN,URINE NEGATIVE (NEGATIVE)
[2017-03-09 21:37] LABS: BACTERIA,URINE None Seen /HPF (None Seen); RBC,URINE 0-2 /HPF (0-2); SULFOSALICYLIC ACID,URINE 2+ (Negative); WBC,URINE 0-2 /HPF (0-5)
[2017-03-09 21:46] LABS: CANNABINOID SCREEN,URINE NEGATIVE (NEGATIVE); COCAINE SCREEN,URINE NEGATIVE (NEGATIVE); METHADONE SCREEN, URINE POSITIVE (NEGATIVE); OPIATE SCREEN,URINE NEGATIVE (NEGATIVE)
[2017-03-09 21:50] LABS: PHENCYCLIDINE SCREEN,URINE NEGATIVE (NEGATIVE)
[2017-03-09] MEDS ORDERED: 0.9% SODIUM CHLORIDE 10 ML SYRINGE IVP PRN (22:30)
[2017-03-09] MEDS ORDERED: ONDANSETRON HCL 4 MG/2 ML VIAL IVP PRN (22:30)
[2017-03-09] MEDS ORDERED: ACETAMINOPHEN 325 MG TABLET PO PRN (22:30)
[2017-03-10] MEDS ORDERED: NITROPRUSSIDE SODIUM IV PRN ×2
[2017-03-10] MEDS ORDERED: DEXTROSE 5% IV PRN ×2
[2017-03-10] MEDS ORDERED: WATER IV PRN ×2
[2017-03-10] MEDS: HydrALAZINE HCL 25 MG TABLET PO SCH ×3 (00:14→11:41)
[2017-03-10] MEDS: ISOSORBIDE MONONITRATE 30 MG ER TABLET PO SCH ×2 (00:14→08:35)
[2017-03-10] MEDS: NITROPRUSSIDE SODIUM 50 MG in DEXTROSE 5%-WATER 248 ML IV PRN ×7 (02:15→22:46)
[2017-03-10 07:49] LABS: BASOPHILS # (AUTO) 0.04 K/uL (0.00-0.20); BASOPHILS % (AUTO) 0.3 % (0.0-2.0); EOSINOPHILS # (AUTO) 0.09 K/uL (0.00-0.70); EOSINOPHILS % (AUTO) 0.76 % (1.0-6.0); HEMOGLOBIN 10.4 g/dL (13.5-17.5); LYMPHOCYTES % (AUTO) 8.1 % (22.0-44.0); MEAN CORPUSCULAR HEMOGLOBIN 27.3 pg (26.0-34.0); MEAN CORPUSCULAR HGB CONC 32.5 G/dL (31.0-37.0); MEAN CORPUSCULAR VOLUME 84 fL (80-100); MONOCYTES # (AUTO) 0.6 K/uL (0.1-1.0); MONOCYTES % (AUTO) 5.4 % (2.0-9.0); NEUTROPHILS # (AUTO) 10.3 K/uL (1.8-7.7); PLATELET COUNT (AUTO) 342 K/uL (150-450); RED BLOOD CELL COUNT(AUTO) 3.82 MIL/uL (4.50-5.90); RED CELL DISTRIBUTION WIDTH 17.2 % (11.5-14.5)
[2017-03-10 07:51] LABS: NEUTROPHILS % (AUTO) 85.5 % (40.0-70.0)
[2017-03-10 07:57] LABS: CALCIUM, TOTAL 8.7 mg/dL (8.8-10.5); CREATININE 2.41 mg/dL (0.60-1.30)
[2017-03-10 08:12] LABS: ALBUMIN 2.9 g/dL (3.4-5.0); BILIRUBIN,TOTAL 0.6 mg/dL (0.1-1.0); TOTAL PROTEIN, SERUM 6.8 g/dL (6.4-8.2)
[2017-03-10] MEDS: CloNIDine HCL 0.2 MG TABLET PO SCH ×2 (11:28→18:11)
[2017-03-10] MEDS: HEPARIN SODIUM,PORCINE 5,000 UNITS/ML VIAL SQ SCH ×2 (11:57→20:49)
[2017-03-10] MEDS ORDERED: POTASSIUM CHLORIDE 20 MEQ ER TABLET PO PRN (12:00)
[2017-03-10] MEDS ORDERED: POTASSIUM CHL 10 MEQ/WATER 50 ML IV PRN (12:00)
[2017-03-10] MEDS ORDERED: POTASSIUM CHLORIDE 20 MEQ ER TABLET PO ONE (12:30)
[2017-03-10] MEDS: HydrALAZINE HCL 50 MG TABLET PO SCH ×3 (15:31→22:25)
[2017-03-10] MEDS: FUROSEMIDE 40 MG/4 ML VIAL IVP SCH (20:49)
[2017-03-10] MEDS ORDERED: FUROSEMIDE 100 MG/10 ML VIAL IVP SCH (21:00)
[2017-03-10] MEDS ORDERED: METHADONE HCL 10 MG TABLET PO ONE (21:15)
[2017-03-11] VITALS (19 sets, daily range): BP systolic 133–200; BP diastolic 71–143
[2017-03-11] MEDS: NITROPRUSSIDE SODIUM 50 MG in DEXTROSE 5%-WATER 248 ML IV PRN ×4 (03:07→16:10)
[2017-03-11] MEDS: CloNIDine HCL 0.2 MG TABLET PO SCH ×3 (03:55→23:46)
[2017-03-11 05:55] LABS: BASOPHILS % (AUTO) 0.4 % (0.0-2.0); EOSINOPHILS % (AUTO) 1.6 % (1.0-6.0); HEMATOCRIT 31.3 % (41-53); HEMOGLOBIN 10.5 g/dL (13.5-17.5); LYMPHOCYTES % (AUTO) 8.7 % (22.0-44.0); MEAN CORPUSCULAR HEMOGLOBIN 27.9 pg (26.0-34.0); MEAN CORPUSCULAR HGB CONC 33.5 G/dL (31.0-37.0); MEAN CORPUSCULAR VOLUME 83 fL (80-100); MONOCYTES % (AUTO) 7.9 % (2.0-9.0); NEUTROPHILS # (AUTO) 9.8 K/uL (1.8-7.7); NEUTROPHILS % (AUTO) 81.4 % (40.0-70.0); PLATELET COUNT (AUTO) 331 K/uL (150-450); RED BLOOD CELL COUNT(AUTO) 3.77 MIL/uL (4.50-5.90); RED CELL DISTRIBUTION WIDTH 17.9 % (11.5-14.5)
[2017-03-11] MEDS ORDERED: ONDANSETRON HCL 4 MG/2 ML VIAL IVP PRN (09:45)
[2017-03-11] MEDS: PANTOPRAZOLE SODIUM 40 MG DR TABLET PO SCH (09:56)
[2017-03-11] MEDS: HEPARIN SODIUM,PORCINE 5,000 UNITS/ML VIAL SQ SCH ×2 (09:56→20:38)
[2017-03-11] MEDS: FUROSEMIDE 40 MG/4 ML VIAL IVP SCH ×2 (09:57→20:38)
[2017-03-11 12:26] LABS: POTASSIUM 3.8 mmol/L (3.5-5.1)
[2017-03-11 12:27] LABS: CALCIUM, TOTAL 8.5 mg/dL (8.8-10.5); CREATININE 2.42 mg/dL (0.60-1.30)
[2017-03-11] MEDS: HydrALAZINE HCL 50 MG TABLET PO SCH ×3 (12:45→20:38)
[2017-03-11] MEDS: ISOSORBIDE MONONITRATE 30 MG ER TABLET PO SCH (14:20)
[2017-03-11] MEDS ORDERED: ENALAPRILAT DIHYDRATE 1.25 MG/ML VIAL IVP PRN (21:00)
[2017-03-11] MEDS ORDERED: AmLODIPine BESYLATE 10 MG TABLET PO ONE (21:00)
[2017-03-12] VITALS (10 sets, daily range): BP systolic 142–177; BP diastolic 85–110
[2017-03-12] MEDS ORDERED: -PHARMACY VACCINE NOTE- MISC ONE (02:00)
[2017-03-12] MEDS: ACETAMINOPHEN 650 MG/20.3 ML SOLUTION UDCUP PO PRN ×2 (06:58→21:25)
[2017-03-12] MEDS: PANTOPRAZOLE SODIUM 40 MG DR TABLET PO SCH (08:20)
[2017-03-12] MEDS: FUROSEMIDE 40 MG/4 ML VIAL IVP SCH ×2 (08:20→20:14)
[2017-03-12] MEDS: HydrALAZINE HCL 50 MG TABLET PO SCH ×3 (08:21→20:13)
[2017-03-12] MEDS: HEPARIN SODIUM,PORCINE 5,000 UNITS/ML VIAL SQ SCH ×2 (08:21→20:14)
[2017-03-12] MEDS: CloNIDine HCL 0.2 MG TABLET PO SCH ×3 (08:22→23:40)
[2017-03-12] MEDS: ISOSORBIDE MONONITRATE 30 MG ER TABLET PO SCH (08:22)
[2017-03-12] MEDS: AmLODIPine BESYLATE 10 MG TABLET PO SCH (08:23)
[2017-03-12 13:56] LABS: CREATININE,URINE RANDOM 20.7 mg/dL (30.0-125.0); SODIUM,URINE RANDOM 75 mmol/l (20-110)
[2017-03-13 05:43] VITALS: BP 153/100
[2017-03-13 07:51] VITALS: BP 161/92
[2017-03-13] MEDS: CloNIDine HCL 0.2 MG TABLET PO SCH (08:43)
[2017-03-13] MEDS: HydrALAZINE HCL 50 MG TABLET PO SCH (08:44)
[2017-03-13] MEDS: FUROSEMIDE 40 MG/4 ML VIAL IVP SCH (08:44)
[2017-03-13] MEDS: PANTOPRAZOLE SODIUM 40 MG DR TABLET PO SCH (08:44)
[2017-03-13] MEDS: ISOSORBIDE MONONITRATE 30 MG ER TABLET PO SCH (08:45)
[2017-03-13] MEDS: AmLODIPine BESYLATE 10 MG TABLET PO SCH (08:45)
[2017-03-13] MEDS: HEPARIN SODIUM,PORCINE 5,000 UNITS/ML VIAL SQ SCH (08:55)
== END 2017-03-13 15:13 | disposition home or self-care (01) | DRG 52 ==
LOC: EMS 18:38 → ICUN 03-10 22:30 → AHU 03-10 22:30 → UNDOADMIN 03-10 22:30 → ICU 03-11 20:10 → 6N 03-12 17:10
PROVIDERS: ADMIT Hospitalist; ATTEND Hospitalist
DX: G92 Toxic encephalopathy (principal); E43 Unspecified severe protein-calorie malnutrition; I50.23 Acute on chronic systolic (congestive) heart failure; N17.9 Acute kidney failure, unspecified; I13.0 Hypertensive heart and chronic kidney disease with heart failure and stage 1 through stage 4 chronic kidney disease, or unspecified chronic kidney disease; N18.9 Chronic kidney disease, unspecified; F41.9 Anxiety disorder, unspecified; F17.210 Nicotine dependence, cigarettes, uncomplicated; L97.119 Non-pressure chronic ulcer of right thigh with unspecified severity; I31.3 Pericardial effusion (noninflammatory); I43 Cardiomyopathy in diseases classified elsewhere; F15.10 Other stimulant abuse, uncomplicated; F11.10 Opioid abuse, uncomplicated; J44.9 Chronic obstructive pulmonary disease, unspecified; Z68.26 Body mass index [BMI] 26.0-26.9, adult; I16.1 Hypertensive emergency; R74.0 Nonspecific elevation of levels of transaminase and lactic acid dehydrogenase [LDH]; Z91.14 Patient's other noncompliance with medication regimen; Z76.5 Malingerer [conscious simulation]; Z59.0 Homelessness; Z79.899 Other long term (current) drug therapy
CPT/HCPCS: 70450; 76770; 82570; 84300; 87070; 87081; 87205; 89050; 93005; 93306; 96365; 96375; 99291; J0360; J1644; J1940; J2405; J3490; J7060

== ENCOUNTER 2017-08-12 05:39 | Inpatient (IN) | payer OTHER ==
[~2017-08-12] VITALS: Ht 177.8 cm; Wt 67.2 kg
[~2017-08-12 05:39] MED LIST changes: -CARV25 PO; +CARV6 PO; -LISI10TA7 PO; +SERT50TA12 PO
[2017-08-12] MEDS ORDERED: IPRATROPIUM BROMIDE 0.5 MG/2.5 ML NEB SOLUTION NEB ONE (05:45)
[2017-08-12] MEDS ORDERED: ALBUTEROL SULFATE 5 MG/ML 20 ML NEB SOLN [BULK] NEB ONE (05:45)
[2017-08-12] MEDS ORDERED: 0.9% SODIUM CHLORIDE 5 ML NEB SOLUTION NEB ONE (05:50)
[2017-08-12 06:03] LABS: BASOPHILS % (AUTO) 0.5 % (0.0-2.0); EOSINOPHILS % (AUTO) 1.6 % (1.0-6.0); HEMATOCRIT 34.9 % (41-53); HEMOGLOBIN 11.7 g/dL (13.5-17.5); LYMPHOCYTES # (AUTO) 1.1 K/uL (1.0-4.8); LYMPHOCYTES % (AUTO) 8.4 % (22.0-44.0); MEAN CORPUSCULAR HEMOGLOBIN 26.8 pg (26.0-34.0); MEAN CORPUSCULAR HGB CONC 33.5 G/dL (31.0-37.0); MEAN CORPUSCULAR VOLUME 80 fL (80-100); MONOCYTES # (AUTO) 0.7 K/uL (0.1-1.0); MONOCYTES % (AUTO) 5.5 % (2.0-9.0); NEUTROPHILS # (AUTO) 11.4 K/uL (1.8-7.7); PLATELET COUNT (AUTO) 227 K/uL (150-450); RED BLOOD CELL COUNT(AUTO) 4.36 MIL/uL (4.50-5.90); RED CELL DISTRIBUTION WIDTH 15.9 % (11.5-14.5)
[2017-08-12 06:11] LABS: PROTHROMBIN TIME 10.3 SEC (9.4-11.6)
[2017-08-12] MEDS ORDERED: HydrALAZINE HCL 20 MG/ML VIAL IVP ONE ×2 (06:15→06:45)
[2017-08-12 06:25] LABS: B-TYPE NATRIURETIC PEPTIDE 2540 pg/mL (0-100)
[2017-08-12] MEDS ORDERED: FUROSEMIDE 40 MG/4 ML VIAL IVP ONE (06:30)
[2017-08-12 06:35] LABS: ALANINE AMINOTRANSFERASE 97 U/L (12-78); ALBUMIN 2.9 g/dL (3.4-5.0); ALKALINE PHOSPHATASE 152 U/L (46-116); ANION GAP 8 mmol/L (8-16); ASPARTATE AMINOTRANSFERASE 83 U/L (15-37); BILIRUBIN,TOTAL 0.5 mg/dL (0.1-1.0); CALCIUM, TOTAL 8.2 mg/dL (8.8-10.5); CARBON DIOXIDE 26 mmol/L (22-29); CHLORIDE 107 mmol/L (98-107); CREATINE KINASE MB 4.1 ng/mL (0-5); CREATINE KINASE, TOTAL 184 U/L (39-308); CREATININE 2.23 mg/dL (0.60-1.30); GLOMERULAR FILTR. RATE CALC 37 mL/min (>60); GLUCOSE,RANDOM 108 mg/dL (70-110); SODIUM SERUM 141 mmol/L (136-145); TOTAL PROTEIN, SERUM 6.7 g/dL (6.4-8.2); UREA NITROGEN, BLOOD 27 mg/dL (7-18)
[2017-08-12 06:36] LABS: POTASSIUM 2.9 mmol/L (3.5-5.1)
[2017-08-12] MEDS ORDERED: POTASSIUM CHL 10 MEQ/WATER 50 ML IV ONE (06:45)
[2017-08-12 07:29] LABS: APPEARANCE,URINE CLEAR (CLEAR); BILIRUBIN,URINE NEGATIVE (NEGATIVE); GLUCOSE, URINE (UA) 100 mg/dL (NEGATIVE); KETONES,URINE NEGATIVE (NEGATIVE); LEUKOCYTE ESTERASE ,URINE NEGATIVE (NEGATIVE); NITRATE,URINE NEGATIVE (NEGATIVE); OCCULT BLOOD,URINE NEGATIVE (NEGATIVE); PROTEIN,URINE SEE CONFIRM (NEGATIVE); UROBILINOGEN,URINE 0.2 mg/dL (<=1.0)
[2017-08-12] MEDS ORDERED: POTASSIUM CHLORIDE 20 MEQ ER TABLET PO ONE (07:30)
[2017-08-12 07:32] LABS: AMPHET/METH SCREEN,URINE POSITIVE (NEGATIVE); BARBITURATE SCREEN, URINE NEGATIVE (NEGATIVE); BENZODIAZEPINES SCREEN,URINE NEGATIVE (NEGATIVE); CANNABINOID SCREEN,URINE NEGATIVE (NEGATIVE); COCAINE SCREEN,URINE NEGATIVE (NEGATIVE); METHADONE SCREEN, URINE POSITIVE (NEGATIVE); OPIATE SCREEN,URINE NEGATIVE (NEGATIVE); PHENCYCLIDINE SCREEN,URINE NEGATIVE (NEGATIVE)
[2017-08-12 07:36] LABS: BACTERIA,URINE Few /HPF (None Seen); RBC,URINE None Seen /HPF (0-2); WBC,URINE 0-2 /HPF (0-5)
[2017-08-12 07:39] LABS: SQUAMOUS EPITHELIAL CELL,UR Rare /LPF (None Seen); TRANSITIONAL EPI CELLS,URINE Few /LPF (None Seen)
[2017-08-12 07:40] LABS: COARSE GRANULAR CASTS,URINE 0-2 /LPF (None Seen)
[2017-08-12 07:41] LABS: SULFOSALICYLIC ACID,URINE 4+ (Negative)
[2017-08-12] MEDS ORDERED: LABETALOL HCL 5 MG/ML 20 ML VIAL IVP ONE ×2 (07:45→09:15)
[2017-08-12] MEDS ORDERED: METH10 PO (08:33)
[2017-08-12] MEDS ORDERED: ACETAMINOPHEN 325 MG TABLET PO PRN ×2 (09:45→19:00)
[2017-08-12] MEDS ORDERED: 0.9% SODIUM CHLORIDE 10 ML SYRINGE IVP PRN ×2 (09:45→19:00)
[2017-08-12] MEDS ORDERED: NITROGLYCERIN 50 MG/D5% WATER 250 ML IV PRN (10:00)
[2017-08-12] MEDS ORDERED: CARVEDILOL 3.125 MG TABLET PO ONE (10:39)
[2017-08-12] MEDS ORDERED: AmLODIPine BESYLATE 5 MG TABLET PO ONE (10:39)
[2017-08-12] MEDS ORDERED: METHADONE HCL 10 MG TABLET PO ONE (10:40)
[2017-08-12 14:15] VITALS: BP 201/121
[2017-08-12] MEDS ORDERED: AmLODIPine BESYLATE 10 MG TABLET PO ONE (15:45)
[2017-08-12 16:00] VITALS: BP 202/127
[2017-08-12] MEDS: CloNIDine HCL 0.2 MG TABLET PO PRN (16:16)
[2017-08-12] MEDS: HydrALAZINE HCL 50 MG TABLET PO SCH ×2 (16:16→20:34)
[2017-08-12] MEDS: ENALAPRILAT DIHYDRATE 1.25 MG/ML VIAL IVP PRN (17:09)
[2017-08-12] MEDS: HydrALAZINE HCL 20 MG/ML VIAL IVP PRN (17:55)
[2017-08-12] MEDS ORDERED: POTASSIUM CHLORIDE 20 MEQ ER TABLET PO PRN ×2 (18:45)
[2017-08-12] MEDS ORDERED: POTASSIUM CHLORIDE 10% 40 MEQ/30 ML LIQUID UDCUP PO PRN ×2 (18:45)
[2017-08-12] MEDS ORDERED: POTASSIUM CHL 10 MEQ/WATER 50 ML IV PRN ×4 (18:45)
[2017-08-12] MEDS ORDERED: OxyCODONE HCL/ACETAMINOPHEN 5-325 MG TABLET PO PRN ×2 (19:00)
[2017-08-12] MEDS ORDERED: MAGNESIUM HYDROXIDE SUSPENSION 30 ML UDCUP PO PRN (19:00)
[2017-08-12 20:00] VITALS: BP 208/146
[2017-08-12] MEDS: DOCUSATE SODIUM 100 MG CAPSULE PO SCH (20:35)
[2017-08-12] MEDS: CARVEDILOL 6.25 MG TABLET PO SCH (20:35)
[2017-08-12] MEDS: PANTOPRAZOLE SODIUM 40 MG/VIAL IVP SCH (20:35)
[2017-08-13] VITALS (8 sets, daily range): BP systolic 166–204; BP diastolic 108–132
[2017-08-13] MEDS: HydrALAZINE HCL 20 MG/ML VIAL IVP PRN ×2 (00:12→09:59)
[2017-08-13] MEDS: CloNIDine HCL 0.2 MG TABLET PO PRN ×2 (01:05→15:26)
[2017-08-13 05:44] LABS: BASOPHILS % (AUTO) 0.8 % (0.0-2.0); EOSINOPHILS % (AUTO) 1.5 % (1.0-6.0); HEMATOCRIT 34.1 % (41-53); HEMOGLOBIN 11.5 g/dL (13.5-17.5); LYMPHOCYTES # (AUTO) 1.1 K/uL (1.0-4.8); LYMPHOCYTES % (AUTO) 10.7 % (22.0-44.0); MEAN CORPUSCULAR HEMOGLOBIN 27.2 pg (26.0-34.0); MEAN CORPUSCULAR HGB CONC 33.6 G/dL (31.0-37.0); MEAN CORPUSCULAR VOLUME 81 fL (80-100); MONOCYTES # (AUTO) 0.7 K/uL (0.1-1.0); MONOCYTES % (AUTO) 6.4 % (2.0-9.0); NEUTROPHILS # (AUTO) 8.7 K/uL (1.8-7.7); NEUTROPHILS % (AUTO) 80.6 % (40.0-70.0); PLATELET COUNT (AUTO) 204 K/uL (150-450); RED BLOOD CELL COUNT(AUTO) 4.21 MIL/uL (4.50-5.90); RED CELL DISTRIBUTION WIDTH 16.2 % (11.5-14.5)
[2017-08-13 05:59] LABS: ALBUMIN 2.5 g/dL (3.4-5.0); BILIRUBIN,TOTAL 0.4 mg/dL (0.1-1.0); CALCIUM, TOTAL 8.1 mg/dL (8.8-10.5); CREATININE 2.08 mg/dL (0.60-1.30); POTASSIUM 4.4 mmol/L (3.5-5.1); TOTAL PROTEIN, SERUM 6.2 g/dL (6.4-8.2)
[2017-08-13] MEDS: ENALAPRILAT DIHYDRATE 1.25 MG/ML VIAL IVP PRN ×2 (06:04→13:46)
[2017-08-13] MEDS: DOCUSATE SODIUM 100 MG CAPSULE PO SCH ×2 (08:02→20:00)
[2017-08-13] MEDS: HydrALAZINE HCL 50 MG TABLET PO SCH ×3 (08:31→20:00)
[2017-08-13] MEDS: AmLODIPine BESYLATE 10 MG TABLET PO SCH (08:31)
[2017-08-13] MEDS: PANTOPRAZOLE SODIUM 40 MG/VIAL IVP SCH (08:31)
[2017-08-13] MEDS: CARVEDILOL 6.25 MG TABLET PO SCH ×2 (08:31→20:00)
[2017-08-13] MEDS: CloNIDine HCL 0.1 MG TABLET PO SCH ×3 (09:59→20:00)
[2017-08-13] MEDS ORDERED: METHADONE HCL 10 MG TABLET PO ONE (12:45)
[2017-08-13] MEDS: SERTRALINE HCL 50 MG TABLET PO SCH (13:48)
[2017-08-13] MEDS ORDERED: FUROSEMIDE 40 MG/4 ML VIAL IVP ONE (16:15)
[2017-08-14] VITALS (8 sets, daily range): BP systolic 140–186; BP diastolic 81–110
[2017-08-14 04:41] LABS: CREATININE,URINE RANDOM 96.7 mg/dL (30.0-125.0)
[2017-08-14 05:38] LABS: BASOPHILS % (AUTO) 0.6 % (0.0-2.0); EOSINOPHILS % (AUTO) 3.8 % (1.0-6.0); HEMATOCRIT 32.5 % (41-53); HEMOGLOBIN 11.2 g/dL (13.5-17.5); LYMPHOCYTES # (AUTO) 1.1 K/uL (1.0-4.8); LYMPHOCYTES % (AUTO) 11.7 % (22.0-44.0); MEAN CORPUSCULAR HEMOGLOBIN 27.6 pg (26.0-34.0); MEAN CORPUSCULAR HGB CONC 34.3 G/dL (31.0-37.0); MEAN CORPUSCULAR VOLUME 80 fL (80-100); MONOCYTES # (AUTO) 0.7 K/uL (0.1-1.0); MONOCYTES % (AUTO) 7.4 % (2.0-9.0); NEUTROPHILS % (AUTO) 76.5 % (40.0-70.0); PLATELET COUNT (AUTO) 192 K/uL (150-450); RED BLOOD CELL COUNT(AUTO) 4.05 MIL/uL (4.50-5.90); RED CELL DISTRIBUTION WIDTH 15.8 % (11.5-14.5)
[2017-08-14 06:15] LABS: % IRON SATURATION 18.8 % (30-44)
[2017-08-14 06:21] LABS: CALCIUM, TOTAL 8.3 mg/dL (8.8-10.5); CREATININE 2.1 mg/dL (0.60-1.30); MAGNESIUM 1.8 mg/dL (1.80-2.40); PHOSPHORUS 3.8 mg/dL (2.5-4.9); POTASSIUM 4.4 mmol/L (3.5-5.1)
[2017-08-14] MEDS: PANTOPRAZOLE SODIUM 40 MG/VIAL IVP SCH (09:02)
[2017-08-14] MEDS: SERTRALINE HCL 50 MG TABLET PO SCH (09:03)
[2017-08-14] MEDS: CloNIDine HCL 0.1 MG TABLET PO SCH (09:03)
[2017-08-14] MEDS: HydrALAZINE HCL 50 MG TABLET PO SCH ×3 (09:03→20:49)
[2017-08-14] MEDS: DOCUSATE SODIUM 100 MG CAPSULE PO SCH ×2 (09:03→21:00)
[2017-08-14] MEDS: CARVEDILOL 6.25 MG TABLET PO SCH ×2 (09:35→21:56)
[2017-08-14] MEDS: AmLODIPine BESYLATE 10 MG TABLET PO SCH (09:35)
[2017-08-14] MEDS: HydrALAZINE HCL 20 MG/ML VIAL IVP PRN (10:44)
[2017-08-14] MEDS: CloNIDine HCL 0.2 MG TABLET PO PRN (12:31)
[2017-08-14] MEDS: CloNIDine HCL 0.2 MG TABLET PO SCH ×2 (15:38→21:56)
[2017-08-14] MEDS: ENALAPRILAT DIHYDRATE 1.25 MG/ML VIAL IVP PRN (18:39)
[2017-08-15 05:01] VITALS: BP 157/96
[2017-08-15 06:33] LABS: BASOPHILS % (AUTO) 0.7 % (0.0-2.0); EOSINOPHILS % (AUTO) 6.2 % (1.0-6.0); HEMATOCRIT 31.6 % (41-53); HEMOGLOBIN 11.1 g/dL (13.5-17.5); LYMPHOCYTES # (AUTO) 1.2 K/uL (1.0-4.8); LYMPHOCYTES % (AUTO) 14.4 % (22.0-44.0); MEAN CORPUSCULAR HEMOGLOBIN 28.2 pg (26.0-34.0); MEAN CORPUSCULAR VOLUME 81 fL (80-100); MONOCYTES # (AUTO) 0.8 K/uL (0.1-1.0); MONOCYTES % (AUTO) 9.7 % (2.0-9.0); NEUTROPHILS # (AUTO) 5.8 K/uL (1.8-7.7); PLATELET COUNT (AUTO) 199 K/uL (150-450); RED BLOOD CELL COUNT(AUTO) 3.92 MIL/uL (4.50-5.90); RED CELL DISTRIBUTION WIDTH 15.9 % (11.5-14.5)
[2017-08-15 06:48] LABS: CALCIUM, TOTAL 8.2 mg/dL (8.8-10.5); CREATININE 1.96 mg/dL (0.60-1.30); POTASSIUM 4.5 mmol/L (3.5-5.1)
[2017-08-15 07:12] VITALS: BP 136/90
[2017-08-15] MEDS: CloNIDine HCL 0.2 MG TABLET PO SCH ×3 (08:00→20:22)
[2017-08-15] MEDS: CARVEDILOL 6.25 MG TABLET PO SCH ×2 (08:00→20:22)
[2017-08-15] MEDS: DOCUSATE SODIUM 100 MG CAPSULE PO SCH ×2 (08:00→20:22)
[2017-08-15] MEDS: PANTOPRAZOLE SODIUM 40 MG/VIAL IVP SCH (08:00)
[2017-08-15] MEDS: AmLODIPine BESYLATE 10 MG TABLET PO SCH (08:00)
[2017-08-15] MEDS: SERTRALINE HCL 50 MG TABLET PO SCH (08:00)
[2017-08-15] MEDS: HydrALAZINE HCL 50 MG TABLET PO SCH ×3 (08:00→20:22)
[2017-08-15 08:31] LABS: IGM (IMMUNOFIXATION) 66 mg/dL (20-172)
[2017-08-15 11:00] VITALS: BP 137/77
[2017-08-15] MEDS: METHADONE HCL 10 MG TABLET PO SCH (17:52)
[2017-08-15 18:12] LABS: SODIUM TIMED,URINE 65 mmol/L (20-110); TPROTEIN TIMED,URINE 100 mg/dL; URINE UREA NITROGEN, TIMED 569 mg/dL (350-1000)
[2017-08-15 18:15] LABS: COLLECTION TIME,URINE 24 HR; SODIUM URINE, 24HR CALC 111 mmol/24H (40-220); TPROTEIN URINE, 24HRS COLL 1700 mg/24Hr (0-165); UREA NITROGEN URINE,24HR CALC 9673 mg/24H (7000-20000)
[2017-08-15 19:19] VITALS: BP 152/85
[2017-08-16] VITALS (10 sets, daily range): BP systolic 147–179; BP diastolic 60–112
[2017-08-16 06:29] LABS: BASOPHILS % (AUTO) 0.4 % (0.0-2.0); EOSINOPHILS % (AUTO) 3.5 % (1.0-6.0); HEMOGLOBIN 10.8 g/dL (13.5-17.5); LYMPHOCYTES % (AUTO) 7.9 % (22.0-44.0); MEAN CORPUSCULAR HEMOGLOBIN 27.2 pg (26.0-34.0); MEAN CORPUSCULAR HGB CONC 33.7 G/dL (31.0-37.0); MEAN CORPUSCULAR VOLUME 81 fL (80-100); MONOCYTES # (AUTO) 1.1 K/uL (0.1-1.0); MONOCYTES % (AUTO) 8.3 % (2.0-9.0); NEUTROPHILS # (AUTO) 10.2 K/uL (1.8-7.7); NEUTROPHILS % (AUTO) 79.9 % (40.0-70.0); PLATELET COUNT (AUTO) 191 K/uL (150-450); RED BLOOD CELL COUNT(AUTO) 3.96 MIL/uL (4.50-5.90); RED CELL DISTRIBUTION WIDTH 16.1 % (11.5-14.5)
[2017-08-16 07:06] LABS: ALBUMIN URINE (ELP) 56.6 %
[2017-08-16] MEDS: DOCUSATE SODIUM 100 MG CAPSULE PO SCH ×2 (07:57→20:31)
[2017-08-16] MEDS: PANTOPRAZOLE SODIUM 40 MG/VIAL IVP SCH (07:57)
[2017-08-16] MEDS: CARVEDILOL 6.25 MG TABLET PO SCH (07:58)
[2017-08-16] MEDS: METHADONE HCL 10 MG TABLET PO SCH (07:58)
[2017-08-16] MEDS: SERTRALINE HCL 50 MG TABLET PO SCH (07:58)
[2017-08-16] MEDS: AmLODIPine BESYLATE 10 MG TABLET PO SCH (07:58)
[2017-08-16 08:06] LABS: CALCIUM, TOTAL 8.3 mg/dL (8.8-10.5); CREATININE 1.99 mg/dL (0.60-1.30); MAGNESIUM 2.1 mg/dL (1.80-2.40); PHOSPHORUS 4.6 mg/dL (2.5-4.9); POTASSIUM 4.8 mmol/L (3.5-5.1)
[2017-08-16] MEDS: CloNIDine HCL 0.2 MG TABLET PO SCH ×3 (10:09→20:31)
[2017-08-16] MEDS: HydrALAZINE HCL 50 MG TABLET PO SCH ×3 (10:09→20:31)
[2017-08-16] MEDS: CARVEDILOL 12.5 MG TABLET PO SCH ×2 (10:10→20:31)
[2017-08-16] MEDS ORDERED: SODIUM CHLORIDE 0.9% 250 ML IV ONE (20:15)
[2017-08-16] MEDS ORDERED: LEVOFLOXACIN 750 MG/D5% WATER 150 ML IV SCH (21:00)
[2017-08-16] MEDS: HydrALAZINE HCL 20 MG/ML VIAL IVP PRN (21:33)
[2017-08-16] MEDS: ENALAPRILAT DIHYDRATE 1.25 MG/ML VIAL IVP PRN (23:44)
[2017-08-17 01:18] VITALS: BP 157/97
[2017-08-17 04:22] VITALS: BP 138/86
[2017-08-17 06:47] LABS: CALCIUM, TOTAL 8.2 mg/dL (8.8-10.5); CREATININE 2.14 mg/dL (0.60-1.30); MAGNESIUM 2.1 mg/dL (1.80-2.40); POTASSIUM 4.8 mmol/L (3.5-5.1)
[2017-08-17 07:19] VITALS: BP 134/77
[2017-08-17] MEDS: SERTRALINE HCL 50 MG TABLET PO SCH (08:38)
[2017-08-17] MEDS: CARVEDILOL 12.5 MG TABLET PO SCH (08:38)
[2017-08-17] MEDS: PANTOPRAZOLE SODIUM 40 MG/VIAL IVP SCH (08:39)
[2017-08-17] MEDS: HydrALAZINE HCL 50 MG TABLET PO SCH ×2 (08:39→17:08)
[2017-08-17] MEDS: DOCUSATE SODIUM 100 MG CAPSULE PO SCH (08:39)
[2017-08-17] MEDS: METHADONE HCL 10 MG TABLET PO SCH (08:49)
[2017-08-17 11:34] VITALS: BP 148/84
[2017-08-17] MEDS: CloNIDine HCL 0.2 MG TABLET PO SCH ×2 (12:12→17:09)
[2017-08-17] MEDS: AmLODIPine BESYLATE 10 MG TABLET PO SCH (12:12)
[2017-08-17] MEDS ORDERED: CARV12 PO (14:45)
[2017-08-17] MEDS ORDERED: AMLO-512 PO (14:45)
[2017-08-17] MEDS ORDERED: CIP250 PO ×2 (14:46→14:53)
[2017-08-17] MEDS ORDERED: CLON.2 PO (14:47)
[2017-08-17] MEDS ORDERED: HYDR-2924 PO (14:47)
[2017-08-17 15:08] LABS: CREATININE,SERUM FOR CRCL 2.1 mg/dL (0.60-1.30)
[2017-08-17 15:36] VITALS: BP 149/82
== END 2017-08-17 19:00 | disposition home or self-care (01) | DRG 199 ==
LOC: EMS 05:40 → ICU 11:23 → 5N 08-14 20:15
PROVIDERS: ADMIT Internal Medicine; ATTEND Internal Medicine
DX: I16.1 Hypertensive emergency (principal); E43 Unspecified severe protein-calorie malnutrition; I50.33 Acute on chronic diastolic (congestive) heart failure; N17.9 Acute kidney failure, unspecified; N18.3 Chronic kidney disease, stage 3 (moderate); I13.0 Hypertensive heart and chronic kidney disease with heart failure and stage 1 through stage 4 chronic kidney disease, or unspecified chronic kidney disease; E87.6 Hypokalemia; F15.10 Other stimulant abuse, uncomplicated; I16.9 Hypertensive crisis, unspecified; F17.210 Nicotine dependence, cigarettes, uncomplicated; J44.9 Chronic obstructive pulmonary disease, unspecified; K46.9 Unspecified abdominal hernia without obstruction or gangrene; R09.02 Hypoxemia; F41.9 Anxiety disorder, unspecified; R09.89 Other specified symptoms and signs involving the circulatory and respiratory systems; Z91.19 Patient's noncompliance with other medical treatment and regimen; Z79.899 Other long term (current) drug therapy; Z68.21 Body mass index [BMI] 21.0-21.9, adult
CPT/HCPCS: 76770; 81050; 82570; 82784; 83540; 83550; 83735; 84100; 84132; 84156; 84166; 84300; 84540; 86162; 86334; 87081; 93005; 94644; 94660; 96365; 96366; 96374; 96375; 99285; C9113; G0480; J0360; J1940; J1956; J3480; J3490; J7050

== ENCOUNTER 2017-10-24 09:13 | Emergency (ER) | payer OTHER ==
[~2017-10-24] VITALS: Ht 170.2 cm; Wt 70.5 kg
[~2017-10-24 09:13] MED LIST changes: -AMLO10TA55 PO; +ASPI81 PO; +CARV12 PO; -CARV6 PO; +DSS100 PO; +NIFE30TA5 PO; -SERT50TA12 PO
[2017-10-24] MEDS: KETOROLAC TROMETHAMINE 60 MG/2 ML VIAL IM ONE (09:38)
[2017-10-24 12:32] VITALS: BP 144/97
== END 2017-10-24 12:55 | disposition left against medical advice (07) ==
LOC: EMS 09:15
DX: R51 Headache (principal); I11.0 Hypertensive heart disease with heart failure; I50.9 Heart failure, unspecified; F41.9 Anxiety disorder, unspecified; F17.210 Nicotine dependence, cigarettes, uncomplicated; F15.90 Other stimulant use, unspecified, uncomplicated; Z79.82 Long term (current) use of aspirin; Z79.899 Other long term (current) drug therapy
CPT/HCPCS: 70450; 96372; 99284; J1885

== ENCOUNTER 2017-12-25 06:44 | Inpatient (IN) | payer OTHER ==
[~2017-12-25] VITALS: Ht 170.2 cm; Wt 64.2 kg
[2017-12-25] MEDS ORDERED: AmLODIPine BESYLATE 5 MG TABLET PO ONE (07:15)
[2017-12-25] MEDS ORDERED: CloNIDine HCL 0.1 MG TABLET PO ONE (07:15)
[2017-12-25 08:03] LABS: BASOPHILS % (AUTO) 0.5 % (0.0-2.0); EOSINOPHILS % (AUTO) 2.2 % (1.0-6.0); HEMATOCRIT 34.6 % (41-53); HEMOGLOBIN 11.5 g/dL (13.5-17.5); LYMPHOCYTES # (AUTO) 1.3 K/uL (1.0-4.8); MEAN CORPUSCULAR HEMOGLOBIN 26.8 pg (26.0-34.0); MEAN CORPUSCULAR HGB CONC 33.4 G/dL (31.0-37.0); MEAN CORPUSCULAR VOLUME 80 fL (80-100); MONOCYTES % (AUTO) 8.8 % (2.0-9.0); NEUTROPHILS # (AUTO) 9.1 K/uL (1.8-7.7); NEUTROPHILS % (AUTO) 77.5 % (40.0-70.0); PLATELET COUNT (AUTO) 399 K/uL (150-450); RED CELL DISTRIBUTION WIDTH 14.8 % (11.5-14.5)
[2017-12-25 08:15] LABS: CALCIUM, TOTAL 8.8 mg/dL (8.8-10.5); CREATININE 2.43 mg/dL (0.60-1.30); POTASSIUM 4.1 mmol/L (3.5-5.1)
[2017-12-25 08:22] LABS: ALBUMIN 2.6 g/dL (3.4-5.0); BILIRUBIN,TOTAL 0.2 mg/dL (0.1-1.0); TOTAL PROTEIN, SERUM 8.7 g/dL (6.4-8.2)
[2017-12-25] MEDS ORDERED: HydrALAZINE HCL 20 MG/ML VIAL IVP ONE (08:45)
[2017-12-25 11:28] VITALS: BP 154/98
[2017-12-25] MEDS ORDERED: ONDANSETRON HCL 4 MG/2 ML VIAL IVP PRN (12:30)
[2017-12-25] MEDS ORDERED: BISACODYL 10 MG RECTAL RECTAL SUPPOSITORY PR PRN (12:30)
[2017-12-25] MEDS ORDERED: ZOLPIDEM TARTRATE 5 MG TABLET PO PRN (12:30)
[2017-12-25] MEDS ORDERED: MAGNESIUM HYDROXIDE SUSPENSION 30 ML UDCUP PO PRN (12:30)
[2017-12-25 15:46] VITALS: BP 149/79
[2017-12-25] MEDS: HydrALAZINE HCL 50 MG TABLET PO SCH ×2 (16:25→21:22)
[2017-12-25] MEDS: CloNIDine HCL 0.2 MG TABLET PO SCH ×2 (16:25→21:22)
[2017-12-25] MEDS ORDERED: FUROSEMIDE 40 MG TABLET PO SCH ×2 (17:30→21:00)
[2017-12-25] MEDS: FUROSEMIDE 40 MG/4 ML VIAL IVP SCH ×2 (17:46→20:16)
[2017-12-25 19:18] VITALS: BP 157/88
[2017-12-25] MEDS: HYDROCODONE/ACETAMINOPHEN 5-325 MG TABLET PO PRN (20:16)
[2017-12-25] MEDS: DOCUSATE SODIUM 100 MG CAPSULE PO SCH (20:16)
[2017-12-25 21:02] VITALS: BP 161/87
[2017-12-25] MEDS: CARVEDILOL 12.5 MG TABLET PO SCH (21:22)
[2017-12-25 23:45] VITALS: BP 131/82
[2017-12-26] VITALS (7 sets, daily range): BP systolic 114–146; BP diastolic 57–98
[2017-12-26] MEDS: ACETAMINOPHEN 325 MG TABLET PO PRN (02:13)
[2017-12-26] MEDS: DOCUSATE SODIUM 100 MG CAPSULE PO SCH ×2 (09:16→20:04)
[2017-12-26] MEDS: PANTOPRAZOLE SODIUM 40 MG DR TABLET PO SCH (09:16)
[2017-12-26] MEDS: ASPIRIN 81 MG CHEWABLE TABLET PO SCH (09:16)
[2017-12-26] MEDS: FUROSEMIDE 40 MG/4 ML VIAL IVP SCH (09:17)
[2017-12-26] MEDS: CloNIDine HCL 0.2 MG TABLET PO SCH ×3 (09:17→22:30)
[2017-12-26] MEDS: NIFEdipine 30 MG ER TABLET PO SCH (09:17)
[2017-12-26] MEDS: HydrALAZINE HCL 50 MG TABLET PO SCH ×3 (09:17→22:30)
[2017-12-26] MEDS: CARVEDILOL 12.5 MG TABLET PO SCH (09:23)
[2017-12-26] MEDS: HYDROCODONE/ACETAMINOPHEN 5-325 MG TABLET PO PRN (20:04)
[2017-12-27] MEDS: CARVEDILOL 12.5 MG TABLET PO SCH ×3 (00:27→20:39)
[2017-12-27] MEDS: HYDROCODONE/ACETAMINOPHEN 5-325 MG TABLET PO PRN ×2 (00:27→08:01)
[2017-12-27 05:39] LABS: BASOPHILS % (AUTO) 0.4 % (0.0-2.0); EOSINOPHILS % (AUTO) 0.8 % (1.0-6.0); HEMOGLOBIN 10.9 g/dL (13.5-17.5); LYMPHOCYTES # (AUTO) 1.1 K/uL (1.0-4.8); LYMPHOCYTES % (AUTO) 8.4 % (22.0-44.0); MEAN CORPUSCULAR HEMOGLOBIN 26.5 pg (26.0-34.0); MEAN CORPUSCULAR HGB CONC 33.1 G/dL (31.0-37.0); MEAN CORPUSCULAR VOLUME 80 fL (80-100); MONOCYTES # (AUTO) 1.5 K/uL (0.1-1.0); MONOCYTES % (AUTO) 11.7 % (2.0-9.0); NEUTROPHILS # (AUTO) 10.1 K/uL (1.8-7.7); NEUTROPHILS % (AUTO) 78.7 % (40.0-70.0); PLATELET COUNT (AUTO) 350 K/uL (150-450); RED BLOOD CELL COUNT(AUTO) 4.13 MIL/uL (4.50-5.90); RED CELL DISTRIBUTION WIDTH 14.7 % (11.5-14.5)
[2017-12-27 05:52] LABS: CALCIUM, TOTAL 8.5 mg/dL (8.8-10.5); CREATININE 2.47 mg/dL (0.60-1.30); POTASSIUM 4.6 mmol/L (3.5-5.1)
[2017-12-27 08:00] VITALS: BP 139/63
[2017-12-27] MEDS: HydrALAZINE HCL 50 MG TABLET PO SCH ×3 (08:00→20:39)
[2017-12-27] MEDS: DOCUSATE SODIUM 100 MG CAPSULE PO SCH ×2 (08:01→20:39)
[2017-12-27] MEDS: ASPIRIN 81 MG CHEWABLE TABLET PO SCH (08:01)
[2017-12-27] MEDS: PANTOPRAZOLE SODIUM 40 MG DR TABLET PO SCH (08:01)
[2017-12-27] MEDS: CloNIDine HCL 0.2 MG TABLET PO SCH ×3 (08:01→20:39)
[2017-12-27] MEDS: FUROSEMIDE 40 MG/4 ML VIAL IVP SCH (08:02)
[2017-12-27] MEDS: NIFEdipine 30 MG ER TABLET PO SCH (08:11)
[2017-12-27 12:00] VITALS: BP 127/64
[2017-12-27 14:21] LABS: APPEARANCE,URINE CLEAR (CLEAR); BILIRUBIN,URINE NEGATIVE (NEGATIVE); GLUCOSE, URINE (UA) NEGATIVE (NEGATIVE); KETONES,URINE NEGATIVE (NEGATIVE); LEUKOCYTE ESTERASE ,URINE NEGATIVE (NEGATIVE); NITRATE,URINE NEGATIVE (NEGATIVE); OCCULT BLOOD,URINE NEGATIVE (NEGATIVE); UROBILINOGEN,URINE 0.2 mg/dL (<=1.0)
[2017-12-27 14:22] LABS: PROTEIN,URINE NEGATIVE (NEGATIVE)
[2017-12-27 14:25] LABS: AMPHET/METH SCREEN,URINE NEGATIVE (NEGATIVE); BARBITURATE SCREEN, URINE NEGATIVE (NEGATIVE); BENZODIAZEPINES SCREEN,URINE NEGATIVE (NEGATIVE); CANNABINOID SCREEN,URINE NEGATIVE (NEGATIVE); COCAINE SCREEN,URINE NEGATIVE (NEGATIVE); METHADONE SCREEN, URINE NEGATIVE (NEGATIVE); OPIATE SCREEN,URINE POSITIVE (NEGATIVE); PHENCYCLIDINE SCREEN,URINE NEGATIVE (NEGATIVE)
[2017-12-27 15:57] VITALS: BP 141/71
[2017-12-27 19:28] VITALS: BP 138/79
[2017-12-27] MEDS: MORPHINE SULFATE 4 MG/ML SYRINGE IVP PRN (22:27)
[2017-12-27 23:17] VITALS: BP 140/83
[2017-12-28] MEDS: HYDROCODONE/ACETAMINOPHEN 5-325 MG TABLET PO PRN (00:49)
[2017-12-28] MEDS: MORPHINE SULFATE 4 MG/ML SYRINGE IVP PRN ×2 (03:14→09:17)
[2017-12-28 05:46] VITALS: BP 142/79
[2017-12-28 08:11] VITALS: BP 151/81
[2017-12-28] MEDS: FUROSEMIDE 40 MG/4 ML VIAL IVP SCH (09:09)
[2017-12-28] MEDS: ASPIRIN 81 MG CHEWABLE TABLET PO SCH (09:10)
[2017-12-28] MEDS: PANTOPRAZOLE SODIUM 40 MG DR TABLET PO SCH (09:10)
[2017-12-28] MEDS: DOCUSATE SODIUM 100 MG CAPSULE PO SCH ×2 (09:10→20:59)
[2017-12-28] MEDS: CloNIDine HCL 0.2 MG TABLET PO SCH ×3 (09:10→20:59)
[2017-12-28] MEDS: NIFEdipine 30 MG ER TABLET PO SCH (09:10)
[2017-12-28] MEDS: CARVEDILOL 12.5 MG TABLET PO SCH ×2 (09:10→20:59)
[2017-12-28] MEDS: HydrALAZINE HCL 50 MG TABLET PO SCH ×3 (09:10→20:59)
[2017-12-28 15:05] VITALS: BP 132/72
[2017-12-28] MEDS: ACETAMINOPHEN 325 MG TABLET PO PRN ×2 (17:06→22:52)
[2017-12-28 19:25] VITALS: BP 136/78
[2017-12-28 23:13] VITALS: BP 138/70
[2017-12-29 04:42] VITALS: BP 136/78
[2017-12-29 06:32] LABS: BASOPHILS % (AUTO) 0.8 % (0.0-2.0); EOSINOPHILS % (AUTO) 4.9 % (1.0-6.0); HEMATOCRIT 29.7 % (41-53); HEMOGLOBIN 10.2 g/dL (13.5-17.5); LYMPHOCYTES # (AUTO) 1.4 K/uL (1.0-4.8); MEAN CORPUSCULAR HEMOGLOBIN 26.9 pg (26.0-34.0); MEAN CORPUSCULAR HGB CONC 34.3 G/dL (31.0-37.0); MEAN CORPUSCULAR VOLUME 78 fL (80-100); MONOCYTES # (AUTO) 1.3 K/uL (0.1-1.0); MONOCYTES % (AUTO) 14.5 % (2.0-9.0); NEUTROPHILS # (AUTO) 5.7 K/uL (1.8-7.7); NEUTROPHILS % (AUTO) 63.8 % (40.0-70.0); PLATELET COUNT (AUTO) 311 K/uL (150-450); RED BLOOD CELL COUNT(AUTO) 3.79 MIL/uL (4.50-5.90); RED CELL DISTRIBUTION WIDTH 14.8 % (11.5-14.5)
[2017-12-29 06:37] LABS: CALCIUM, TOTAL 8.9 mg/dL (8.8-10.5); CREATININE 2.56 mg/dL (0.60-1.30); POTASSIUM 4.4 mmol/L (3.5-5.1)
[2017-12-29 07:33] VITALS: BP 158/89
[2017-12-29] MEDS: ACETAMINOPHEN 325 MG TABLET PO PRN ×3 (08:04→12:46)
[2017-12-29] MEDS: PANTOPRAZOLE SODIUM 40 MG DR TABLET PO SCH (08:04)
[2017-12-29] MEDS: FUROSEMIDE 40 MG/4 ML VIAL IVP SCH (08:04)
[2017-12-29] MEDS: DOCUSATE SODIUM 100 MG CAPSULE PO SCH (08:05)
[2017-12-29] MEDS: CloNIDine HCL 0.2 MG TABLET PO SCH (08:05)
[2017-12-29] MEDS: ASPIRIN 81 MG CHEWABLE TABLET PO SCH (08:05)
[2017-12-29] MEDS: CARVEDILOL 12.5 MG TABLET PO SCH (08:05)
[2017-12-29] MEDS: HydrALAZINE HCL 50 MG TABLET PO SCH (08:09)
[2017-12-29 11:42] VITALS: BP 138/70
[2017-12-29] MEDS: NIFEdipine 30 MG ER TABLET PO SCH (12:10)
[2017-12-30] MEDS ORDERED: FUROSEMIDE 40 MG TABLET PO SCH (09:00)
== END 2017-12-29 14:55 | disposition home or self-care (01) | DRG 55 ==
LOC: EMS 06:45 → 5S 10:12 → 4E 12-26 16:45
PROVIDERS: ADMIT Internal Medicine; ATTEND Internal Medicine
DX: S06.5X9A Traumatic subdural hemorrhage with loss of consciousness of unspecified duration, initial encounter (principal); E43 Unspecified severe protein-calorie malnutrition; R64 Cachexia; I50.33 Acute on chronic diastolic (congestive) heart failure; I13.0 Hypertensive heart and chronic kidney disease with heart failure and stage 1 through stage 4 chronic kidney disease, or unspecified chronic kidney disease; N18.4 Chronic kidney disease, stage 4 (severe); F10.10 Alcohol abuse, uncomplicated; I16.0 Hypertensive urgency; F41.9 Anxiety disorder, unspecified; F17.210 Nicotine dependence, cigarettes, uncomplicated; R53.81 Other malaise; W01.198A Fall on same level from slipping, tripping and stumbling with subsequent striking against other object, initial encounter; F15.90 Other stimulant use, unspecified, uncomplicated; Y93.89 Activity, other specified; Z91.19 Patient's noncompliance with other medical treatment and regimen; Y99.8 Other external cause status; Z68.22 Body mass index [BMI] 22.0-22.9, adult; Y92.002 Bathroom of unspecified non-institutional (private) residence as the place of occurrence of the external cause
CPT/HCPCS: 70450; 80307; 93005; 96374; 97161; 97530; G0378; J0360; J1940; J2270

== ENCOUNTER 2018-04-12 08:41 | Inpatient (IN) | payer OTHER ==
[~2018-04-12] VITALS: Ht 180.3 cm; Wt 63.2 kg
[~2018-04-12 08:41] MED LIST changes: -FURO40 PO; -HYDR-2924 PO
[2018-04-12] MEDS ORDERED: HydrALAZINE HCL 20 MG/ML VIAL IVP ONE (09:15)
[2018-04-12] MEDS ORDERED: ASPIRIN 81 MG CHEWABLE TABLET PO ONE (09:15)
[2018-04-12] MEDS ORDERED: NITROGLYCERIN 2% (1 GM=INCH) PACKET TP ONE (09:15)
[2018-04-12] MEDS ORDERED: NITROGLYCERIN 0.4 MG SUBLINGUAL TABLET #25 SL ONE (09:15)
[2018-04-12] MEDS ORDERED: NICARDipine 20 MG/DEXT,ISO-OSM 200 ML IV PRN (09:37)
[2018-04-12 09:48] LABS: AMPHET/METH SCREEN,URINE POSITIVE (NEGATIVE); APPEARANCE,URINE CLEAR (CLEAR); BARBITURATE SCREEN, URINE NEGATIVE (NEGATIVE); BENZODIAZEPINES SCREEN,URINE NEGATIVE (NEGATIVE); BILIRUBIN,URINE NEGATIVE (NEGATIVE); CANNABINOID SCREEN,URINE NEGATIVE (NEGATIVE); COCAINE SCREEN,URINE NEGATIVE (NEGATIVE); GLUCOSE, URINE (UA) NEGATIVE (NEGATIVE); KETONES,URINE NEGATIVE (NEGATIVE); LEUKOCYTE ESTERASE ,URINE NEGATIVE (NEGATIVE); METHADONE SCREEN, URINE NEGATIVE (NEGATIVE); NITRATE,URINE NEGATIVE (NEGATIVE); OCCULT BLOOD,URINE NEGATIVE (NEGATIVE); OPIATE SCREEN,URINE NEGATIVE (NEGATIVE); PROTEIN,URINE SEE CONFIRM (NEGATIVE); UROBILINOGEN,URINE 0.2 mg/dL (<=1.0)
[2018-04-12 09:49] LABS: PHENCYCLIDINE SCREEN,URINE NEGATIVE (NEGATIVE)
[2018-04-12 10:00] LABS: BASOPHILS % (AUTO) 0.5 % (0.0-2.0); EOSINOPHILS % (AUTO) 4.4 % (1.0-6.0); HEMOGLOBIN 11.6 g/dL (13.5-17.5); LYMPHOCYTES # (AUTO) 1.2 K/uL (1.0-4.8); LYMPHOCYTES % (AUTO) 14.3 % (22.0-44.0); MEAN CORPUSCULAR HEMOGLOBIN 27.2 pg (26.0-34.0); MEAN CORPUSCULAR HGB CONC 33.3 G/dL (31.0-37.0); MEAN CORPUSCULAR VOLUME 82 fL (80-100); MONOCYTES # (AUTO) 0.6 K/uL (0.1-1.0); MONOCYTES % (AUTO) 7.3 % (2.0-9.0); NEUTROPHILS # (AUTO) 6.1 K/uL (1.8-7.7); NEUTROPHILS % (AUTO) 73.5 % (40.0-70.0); PLATELET COUNT (AUTO) 290 K/uL (150-450); RED BLOOD CELL COUNT(AUTO) 4.28 MIL/uL (4.50-5.90); RED CELL DISTRIBUTION WIDTH 17.2 % (11.5-14.5)
[2018-04-12 10:04] LABS: SULFOSALICYLIC ACID,URINE 3+ (Negative)
[2018-04-12 10:06] LABS: BACTERIA,URINE Rare /HPF (None Seen); COARSE GRANULAR CASTS,URINE 0-2 /LPF (None Seen); RBC,URINE None Seen /HPF (0-2); SQUAMOUS EPITHELIAL CELL,UR Rare /LPF (None Seen); WBC,URINE 0-2 /HPF (0-5)
[2018-04-12 10:08] LABS: CALCIUM, TOTAL 8.8 mg/dL (8.8-10.5); CREATININE 2.81 mg/dL (0.60-1.30); POTASSIUM 3.7 mmol/L (3.5-5.1)
[2018-04-12] MEDS ORDERED: LORazepam 2 MG/ML VIAL ONE (10:14)
[2018-04-12] MEDS ORDERED: LORazepam 2 MG/ML VIAL IVP ONE (10:15)
[2018-04-12 10:29] LABS: ALBUMIN 3.1 g/dL (3.4-5.0); BILIRUBIN,TOTAL 0.4 mg/dL (0.1-1.0); TOTAL PROTEIN, SERUM 7.3 g/dL (6.4-8.2)
[2018-04-12 10:30] LABS: PROTHROMBIN TIME 9.9 SEC (9.4-11.6)
[2018-04-12] MEDS ORDERED: MORPHINE SULFATE 4 MG/ML SYRINGE IVP ONE (10:45)
[2018-04-12] MEDS ORDERED: ONDANSETRON HCL 4 MG/2 ML VIAL IVP ONE (10:45)
[2018-04-12 15:10] VITALS: BP 172/96
[2018-04-12] MEDS ORDERED: 0.9% SODIUM CHLORIDE 10 ML SYRINGE IVP PRN (15:15)
[2018-04-12] MEDS ORDERED: ACETAMINOPHEN 325 MG TABLET PO PRN (15:15)
[2018-04-12] MEDS ORDERED: ONDANSETRON HCL 4 MG/2 ML VIAL IVP PRN (15:15)
[2018-04-12] MEDS: NICARDipine 20 MG/DEXT,ISO-OSM 200 ML IV PRN ×6 (15:30→22:48)
[2018-04-12 16:00] VITALS: BP 172/96
[2018-04-12] MEDS: MORPHINE SULFATE 4 MG/ML SYRINGE IVP PRN ×2 (16:06→21:13)
[2018-04-12] MEDS: HYDROCODONE/ACETAMINOPHEN 5-325 MG TABLET PO PRN ×2 (19:59→23:57)
[2018-04-12 20:00] VITALS: BP 180/87
[2018-04-12 21:00] VITALS: BP 176/112
[2018-04-12 21:59] VITALS: BP 183/99
[2018-04-12 22:13] VITALS: BP 170/100
[2018-04-13] VITALS (12 sets, daily range): BP systolic 155–178; BP diastolic 86–116
[2018-04-13] MEDS: MORPHINE SULFATE 4 MG/ML SYRINGE IVP PRN (01:46)
[2018-04-13] MEDS ORDERED: ACETAMINOPHEN 325 MG TABLET PO PRN (04:15)
[2018-04-13] MEDS ORDERED: ONDANSETRON HCL 4 MG/2 ML VIAL IVP PRN ×2 (04:15→07:00)
[2018-04-13] MEDS ORDERED: HYDROCODONE/ACETAMINOPHEN 5-325 MG TABLET PO PRN (04:15)
[2018-04-13] MEDS ORDERED: MORPHINE SULFATE 4 MG/ML SYRINGE IVP PRN (04:15)
[2018-04-13] MEDS: NICARDipine 20 MG/DEXT,ISO-OSM 200 ML IV PRN ×2 (04:34→08:09)
[2018-04-13 05:05] LABS: BASOPHILS % (AUTO) 0.5 % (0.0-2.0); EOSINOPHILS % (AUTO) 3.1 % (1.0-6.0); HEMATOCRIT 33.9 % (41-53); HEMOGLOBIN 11.6 g/dL (13.5-17.5); LYMPHOCYTES # (AUTO) 1.3 K/uL (1.0-4.8); LYMPHOCYTES % (AUTO) 9.8 % (22.0-44.0); MEAN CORPUSCULAR HEMOGLOBIN 27.7 pg (26.0-34.0); MEAN CORPUSCULAR HGB CONC 34.4 G/dL (31.0-37.0); MEAN CORPUSCULAR VOLUME 81 fL (80-100); MONOCYTES % (AUTO) 7.7 % (2.0-9.0); NEUTROPHILS # (AUTO) 10.2 K/uL (1.8-7.7); NEUTROPHILS % (AUTO) 78.9 % (40.0-70.0); PLATELET COUNT (AUTO) 293 K/uL (150-450); RED BLOOD CELL COUNT(AUTO) 4.21 MIL/uL (4.50-5.90); RED CELL DISTRIBUTION WIDTH 16.5 % (11.5-14.5)
[2018-04-13 05:33] LABS: BILIRUBIN,TOTAL 0.5 mg/dL (0.1-1.0); CALCIUM, TOTAL 8.6 mg/dL (8.8-10.5); CREATININE 2.79 mg/dL (0.60-1.30); POTASSIUM 4.1 mmol/L (3.5-5.1); TOTAL PROTEIN, SERUM 6.9 g/dL (6.4-8.2)
[2018-04-13] MEDS ORDERED: IPRATROPIUM BROMIDE 0.5 MG/2.5 ML NEB SOLUTION NEB PRN (07:00)
[2018-04-13] MEDS ORDERED: ALBUTEROL SULFATE 2.5 MG/0.5 ML NEB SOLUTION NEB PRN (07:00)
[2018-04-13] MEDS ORDERED: BISACODYL 10 MG RECTAL RECTAL SUPPOSITORY PR PRN (07:00)
[2018-04-13] MEDS ORDERED: MAGNESIUM HYDROXIDE SUSPENSION 30 ML UDCUP PO PRN (07:00)
[2018-04-13] MEDS: MORPHINE SULFATE 2 MG/ML SYRINGE IVP PRN ×3 (08:14→15:59)
[2018-04-13] MEDS: PANTOPRAZOLE SODIUM 40 MG/VIAL IVP SCH (08:14)
[2018-04-13 08:27] LABS: OCCULT BLOOD,GASTRIC FLUID NEGATIVE (NEGATIVE)
[2018-04-13] MEDS ORDERED: DOCUSATE SODIUM 100 MG CAPSULE PO SCH (09:00)
[2018-04-13] MEDS ORDERED: NIFEdipine 30 MG ER TABLET PO SCH (09:00)
[2018-04-13] MEDS: HEPARIN SODIUM,PORCINE 5,000 UNITS/ML VIAL SQ SCH ×2 (09:04→15:50)
[2018-04-13] MEDS: DOCUSATE SODIUM 100 MG CAPSULE PO SCH ×2 (09:05→20:01)
[2018-04-13] MEDS: ASPIRIN 81 MG CHEWABLE TABLET PO SCH (09:05)
[2018-04-13] MEDS: CloNIDine HCL 0.2 MG TABLET PO SCH ×3 (09:05→20:01)
[2018-04-13] MEDS: CARVEDILOL 12.5 MG TABLET PO SCH ×2 (09:06→20:01)
[2018-04-13 22:21] LABS: ABG A-A DIFF O2 633.9 mmHg (10-20.0); ABG BASE EXCESS -4.2 mmol/L (-2.0-3.0); ABG CARBOXYHEMOGLOBIN 0.8 % (0.0-1.5); ABG HCO3 20.9 mmol/L (22.0-26.0); ABG METHEMOGLOBIN 0.3 % (0.0-1.5); ABG OXYGEN CONTENT 11.3 mL/dL (15.0-23.0); ABG OXYGEN SATURATION 73.2 % (95.0-98.0); ABG OXYHEMOGLOBIN 72.4 % (94.0-100.0); ABG PCO2 39 mmHg (35-45); ABG PH 7.355 (7.35-7.450); ABG TOTAL HEMOGLOBIN 11.1 G/dL (12.0-18.0); SITE, BLOOD GAS RT RADIAL; SOURCE, BLOOD GAS ARTERIAL; TEMPERATURE, FAHRENHEIT, BG 98.6 FAHREN (96.0-98.6)
[2018-04-13 22:22] LABS: O2 DEVICE,BLOOD GAS NON REBREATHER (ROOM AIR)
[2018-04-14] VITALS (7 sets, daily range): BP systolic 120–189; BP diastolic 66–118
[2018-04-14] MEDS: HEPARIN SODIUM,PORCINE 5,000 UNITS/ML VIAL SQ SCH ×4 (00:39→23:31)
[2018-04-14 04:49] LABS: BASOPHILS % (AUTO) 0.6 % (0.0-2.0); EOSINOPHILS % (AUTO) 1.9 % (1.0-6.0); HEMATOCRIT 32.8 % (41-53); HEMOGLOBIN 10.8 g/dL (13.5-17.5); LYMPHOCYTES # (AUTO) 0.7 K/uL (1.0-4.8); LYMPHOCYTES % (AUTO) 8.8 % (22.0-44.0); MEAN CORPUSCULAR HEMOGLOBIN 27.1 pg (26.0-34.0); MEAN CORPUSCULAR HGB CONC 33.1 G/dL (31.0-37.0); MEAN CORPUSCULAR VOLUME 82 fL (80-100); MONOCYTES # (AUTO) 0.5 K/uL (0.1-1.0); MONOCYTES % (AUTO) 7.1 % (2.0-9.0); NEUTROPHILS # (AUTO) 6.2 K/uL (1.8-7.7); NEUTROPHILS % (AUTO) 81.6 % (40.0-70.0); PLATELET COUNT (AUTO) 229 K/uL (150-450); RED CELL DISTRIBUTION WIDTH 16.2 % (11.5-14.5)
[2018-04-14 05:10] LABS: ALBUMIN 2.6 g/dL (3.4-5.0); BILIRUBIN,TOTAL 0.5 mg/dL (0.1-1.0); CALCIUM, TOTAL 8.9 mg/dL (8.8-10.5); CREATININE 2.93 mg/dL (0.60-1.30); TOTAL PROTEIN, SERUM 6.6 g/dL (6.4-8.2)
[2018-04-14] MEDS: DOCUSATE SODIUM 100 MG CAPSULE PO SCH ×2 (09:00→21:01)
[2018-04-14] MEDS: PANTOPRAZOLE SODIUM 40 MG/VIAL IVP SCH (09:19)
[2018-04-14] MEDS: NIFEdipine 60 MG ER TABLET PO SCH (09:19)
[2018-04-14] MEDS: ACETAMINOPHEN 325 MG TABLET PO PRN (09:20)
[2018-04-14] MEDS: CARVEDILOL 12.5 MG TABLET PO SCH ×2 (09:20→21:01)
[2018-04-14] MEDS: CloNIDine HCL 0.2 MG TABLET PO SCH ×3 (09:20→21:01)
[2018-04-14] MEDS: ASPIRIN 81 MG CHEWABLE TABLET PO SCH (09:20)
[2018-04-14] MEDS ORDERED: *CLINICAL-LEVOFLOXACIN IVPB DOSING CLINICAL ONE (12:00)
[2018-04-14] MEDS ORDERED: ALBUTEROL SULFATE 2.5 MG/0.5 ML NEB SOLUTION NEB PRN (12:00)
[2018-04-14] MEDS: MORPHINE SULFATE 2 MG/ML SYRINGE IVP PRN ×4 (12:02→21:22)
[2018-04-14] MEDS ORDERED: LEVOFLOXACIN 750 MG/D5% WATER 150 ML IV ONE (13:15)
[2018-04-14] MEDS ORDERED: SODIUM CHLORIDE 0.9% 250 ML IV ONE (13:25)
[2018-04-14] MEDS ORDERED: CALCIUM GLUCONATE 1,000 MG in DEXTROSE 5%-WATER 50 ML IV ONE (22:00)
[2018-04-14] MEDS: IPRATROPIUM BROMIDE 0.5 MG/2.5 ML NEB SOLUTION NEB SCH (22:56)
[2018-04-14] MEDS: ALBUTEROL SULFATE 2.5 MG/0.5 ML NEB SOLUTION NEB SCH (22:56)
[2018-04-15] MEDS: ALBUTEROL SULFATE 2.5 MG/0.5 ML NEB SOLUTION NEB SCH ×6 (03:22→23:00)
[2018-04-15] MEDS: IPRATROPIUM BROMIDE 0.5 MG/2.5 ML NEB SOLUTION NEB SCH ×6 (03:22→23:00)
[2018-04-15 03:28] VITALS: BP 127/73
[2018-04-15] MEDS: MORPHINE SULFATE 2 MG/ML SYRINGE IVP PRN ×4 (04:36→21:29)
[2018-04-15 07:39] VITALS: BP 124/72
[2018-04-15] MEDS: ASPIRIN 81 MG CHEWABLE TABLET PO SCH (08:37)
[2018-04-15] MEDS: NIFEdipine 60 MG ER TABLET PO SCH (08:37)
[2018-04-15] MEDS: MULTIVITAMINS, THERAPEUTIC TABLET PO SCH (08:37)
[2018-04-15] MEDS: DOCUSATE SODIUM 100 MG CAPSULE PO SCH ×2 (08:37→21:29)
[2018-04-15] MEDS: PANTOPRAZOLE SODIUM 40 MG/VIAL IVP SCH (08:38)
[2018-04-15] MEDS: HEPARIN SODIUM,PORCINE 5,000 UNITS/ML VIAL SQ SCH ×3 (08:38→23:40)
[2018-04-15 10:44] VITALS: BP 132/77
[2018-04-15] MEDS: CloNIDine HCL 0.2 MG TABLET PO SCH ×3 (12:12→21:29)
[2018-04-15] MEDS: CARVEDILOL 12.5 MG TABLET PO SCH ×2 (12:12→21:29)
[2018-04-15 15:31] VITALS: BP 124/79
[2018-04-15 16:04] LABS: CREATININE,URINE RANDOM 66.4 mg/dL (30.0-125.0)
[2018-04-15 20:09] VITALS: BP 109/62
[2018-04-15] MEDS: ZOLPIDEM TARTRATE 5 MG TABLET PO PRN (21:29)
[2018-04-16] VITALS (7 sets, daily range): BP systolic 131–150; BP diastolic 61–82
[2018-04-16] MEDS: IPRATROPIUM BROMIDE 0.5 MG/2.5 ML NEB SOLUTION NEB SCH ×6 (03:00→23:00)
[2018-04-16] MEDS: ALBUTEROL SULFATE 2.5 MG/0.5 ML NEB SOLUTION NEB SCH ×6 (03:00→23:00)
[2018-04-16] MEDS: MORPHINE SULFATE 2 MG/ML SYRINGE IVP PRN ×2 (03:39→19:57)
[2018-04-16] MEDS: ACETAMINOPHEN 325 MG TABLET PO PRN ×2 (05:19→16:27)
[2018-04-16] MEDS: PANTOPRAZOLE SODIUM 40 MG/VIAL IVP SCH (08:43)
[2018-04-16] MEDS: CARVEDILOL 12.5 MG TABLET PO SCH ×2 (08:44→19:51)
[2018-04-16] MEDS: NIFEdipine 60 MG ER TABLET PO SCH (08:44)
[2018-04-16] MEDS: ASPIRIN 81 MG CHEWABLE TABLET PO SCH (08:44)
[2018-04-16] MEDS: HEPARIN SODIUM,PORCINE 5,000 UNITS/ML VIAL SQ SCH ×2 (08:44→16:27)
[2018-04-16] MEDS: MULTIVITAMINS, THERAPEUTIC TABLET PO SCH (08:44)
[2018-04-16] MEDS: CloNIDine HCL 0.2 MG TABLET PO SCH ×3 (08:45→19:51)
[2018-04-16] MEDS: DOCUSATE SODIUM 100 MG CAPSULE PO SCH ×2 (08:45→19:51)
[2018-04-16 10:20] LABS: BASOPHILS % (AUTO) 0.3 % (0.0-2.0); EOSINOPHILS % (AUTO) 3.5 % (1.0-6.0); HEMATOCRIT 25.9 % (41-53); HEMOGLOBIN 8.8 g/dL (13.5-17.5); LYMPHOCYTES # (AUTO) 0.7 K/uL (1.0-4.8); LYMPHOCYTES % (AUTO) 7.2 % (22.0-44.0); MEAN CORPUSCULAR HEMOGLOBIN 27.7 pg (26.0-34.0); MEAN CORPUSCULAR HGB CONC 34.2 G/dL (31.0-37.0); MEAN CORPUSCULAR VOLUME 81 fL (80-100); MONOCYTES # (AUTO) 1.2 K/uL (0.1-1.0); MONOCYTES % (AUTO) 12.3 % (2.0-9.0); NEUTROPHILS # (AUTO) 7.7 K/uL (1.8-7.7); NEUTROPHILS % (AUTO) 76.7 % (40.0-70.0); PLATELET COUNT (AUTO) 191 K/uL (150-450); RED CELL DISTRIBUTION WIDTH 15.9 % (11.5-14.5)
[2018-04-16 10:34] LABS: CALCIUM, TOTAL 8.6 mg/dL (8.8-10.5); CREATININE 2.8 mg/dL (0.60-1.30); MAGNESIUM 1.4 mg/dL (1.80-2.40); PHOSPHORUS 2.8 mg/dL (2.5-4.9); POTASSIUM 4.9 mmol/L (3.5-5.1)
[2018-04-16] MEDS ORDERED: MAGNESIUM SULFATE 3 GM in DEXTROSE 5%-WATER 100 ML IV ONE (11:45)
[2018-04-16] MEDS ORDERED: SODIUM CHLORIDE 0.9% 250 ML IV ONE (16:10)
[2018-04-16] MEDS: LEVOFLOXACIN 750 MG/D5% WATER 150 ML IV SCH ×2 (16:27→17:29)
[2018-04-16] MEDS: ZOLPIDEM TARTRATE 5 MG TABLET PO PRN (21:21)
[2018-04-17 00:18] VITALS: BP 120/78
[2018-04-17] MEDS: HEPARIN SODIUM,PORCINE 5,000 UNITS/ML VIAL SQ SCH ×3 (00:50→16:25)
[2018-04-17] MEDS: ALBUTEROL SULFATE 2.5 MG/0.5 ML NEB SOLUTION NEB SCH ×6 (03:00→23:00)
[2018-04-17] MEDS: IPRATROPIUM BROMIDE 0.5 MG/2.5 ML NEB SOLUTION NEB SCH ×6 (03:00→23:00)
[2018-04-17 04:44] VITALS: BP 134/76
[2018-04-17 06:24] LABS: BASOPHILS % (AUTO) 0.9 % (0.0-2.0); EOSINOPHILS % (AUTO) 2.9 % (1.0-6.0); HEMATOCRIT 28.8 % (41-53); HEMOGLOBIN 9.8 g/dL (13.5-17.5); LYMPHOCYTES % (AUTO) 7.2 % (22.0-44.0); MEAN CORPUSCULAR HEMOGLOBIN 27.2 pg (26.0-34.0); MEAN CORPUSCULAR HGB CONC 34.1 G/dL (31.0-37.0); MEAN CORPUSCULAR VOLUME 80 fL (80-100); MONOCYTES # (AUTO) 1.4 K/uL (0.1-1.0); MONOCYTES % (AUTO) 10.6 % (2.0-9.0); NEUTROPHILS # (AUTO) 10.7 K/uL (1.8-7.7); NEUTROPHILS % (AUTO) 78.4 % (40.0-70.0); PLATELET COUNT (AUTO) 246 K/uL (150-450); RED BLOOD CELL COUNT(AUTO) 3.61 MIL/uL (4.50-5.90); RED CELL DISTRIBUTION WIDTH 15.6 % (11.5-14.5)
[2018-04-17 06:45] LABS: CALCIUM, TOTAL 9.8 mg/dL (8.8-10.5); CREATININE 2.84 mg/dL (0.60-1.30); POTASSIUM 5.8 mmol/L (3.5-5.1)
[2018-04-17 07:24] VITALS: BP 163/99
[2018-04-17 08:41] LABS: MAGNESIUM 2.3 mg/dL (1.80-2.40)
[2018-04-17] MEDS: MULTIVITAMINS, THERAPEUTIC TABLET PO SCH (08:50)
[2018-04-17] MEDS: PANTOPRAZOLE SODIUM 40 MG/VIAL IVP SCH (08:50)
[2018-04-17] MEDS: DOCUSATE SODIUM 100 MG CAPSULE PO SCH ×2 (08:51→20:21)
[2018-04-17] MEDS: CloNIDine HCL 0.2 MG TABLET PO SCH ×3 (08:51→20:20)
[2018-04-17] MEDS: CARVEDILOL 12.5 MG TABLET PO SCH ×2 (08:51→20:21)
[2018-04-17] MEDS: ASPIRIN 81 MG CHEWABLE TABLET PO SCH (08:51)
[2018-04-17] MEDS: ACETAMINOPHEN 325 MG TABLET PO PRN ×2 (08:52→20:20)
[2018-04-17] MEDS ORDERED: SODIUM POLYSTYRENE SULFONATE 15 GM/60 ML SUSPENSION BOTTLE PO ONE (09:30)
[2018-04-17 10:47] VITALS: BP 137/82
[2018-04-17 10:55] LABS: INFLUENZA TYPE A NEGATIVE FOR TYPE A (NEGATIVE); INFLUENZA TYPE B NEGATIVE FOR TYPE B (NEGATIVE)
[2018-04-17] MEDS: NIFEdipine 60 MG ER TABLET PO SCH (11:06)
[2018-04-17] MEDS: SODIUM CHLORIDE 0.9% 1,000 ML IV SCH (11:08)
[2018-04-17 16:44] VITALS: BP 159/86
[2018-04-17 20:00] VITALS: BP 140/89
[2018-04-18 00:10] VITALS: BP 147/84
[2018-04-18] MEDS: HYDROCODONE/ACETAMINOPHEN 5-325 MG TABLET PO PRN (00:20)
[2018-04-18] MEDS: HEPARIN SODIUM,PORCINE 5,000 UNITS/ML VIAL SQ SCH ×3 (00:20→15:52)
[2018-04-18] MEDS: IPRATROPIUM BROMIDE 0.5 MG/2.5 ML NEB SOLUTION NEB SCH ×6 (03:00→23:00)
[2018-04-18] MEDS: ALBUTEROL SULFATE 2.5 MG/0.5 ML NEB SOLUTION NEB SCH ×6 (03:00→23:00)
[2018-04-18] MEDS: MORPHINE SULFATE 2 MG/ML SYRINGE IVP PRN ×4 (04:01→20:32)
[2018-04-18 04:45] VITALS: BP 137/79
[2018-04-18] MEDS: SODIUM CHLORIDE 0.9% 1,000 ML IV SCH (06:11)
[2018-04-18 07:30] VITALS: BP 132/80
[2018-04-18] MEDS: CARVEDILOL 12.5 MG TABLET PO SCH ×2 (09:03→20:32)
[2018-04-18] MEDS: DOCUSATE SODIUM 100 MG CAPSULE PO SCH ×2 (09:03→20:32)
[2018-04-18] MEDS: NIFEdipine 60 MG ER TABLET PO SCH (09:03)
[2018-04-18] MEDS: CloNIDine HCL 0.2 MG TABLET PO SCH ×3 (09:03→20:31)
[2018-04-18] MEDS: MULTIVITAMINS, THERAPEUTIC TABLET PO SCH (09:03)
[2018-04-18] MEDS: ASPIRIN 81 MG CHEWABLE TABLET PO SCH (09:03)
[2018-04-18] MEDS: PANTOPRAZOLE SODIUM 40 MG/VIAL IVP SCH (09:04)
[2018-04-18 10:23] LABS: BASOPHILS % (AUTO) 0.3 % (0.0-2.0); EOSINOPHILS % (AUTO) 1.6 % (1.0-6.0); HEMATOCRIT 28.3 % (41-53); HEMOGLOBIN 9.3 g/dL (13.5-17.5); LYMPHOCYTES # (AUTO) 1.1 K/uL (1.0-4.8); LYMPHOCYTES % (AUTO) 8.3 % (22.0-44.0); MEAN CORPUSCULAR HEMOGLOBIN 26.4 pg (26.0-34.0); MEAN CORPUSCULAR VOLUME 80 fL (80-100); MONOCYTES % (AUTO) 14.6 % (2.0-9.0); NEUTROPHILS # (AUTO) 10.3 K/uL (1.8-7.7); NEUTROPHILS % (AUTO) 75.2 % (40.0-70.0); PLATELET COUNT (AUTO) 267 K/uL (150-450); RED BLOOD CELL COUNT(AUTO) 3.54 MIL/uL (4.50-5.90); RED CELL DISTRIBUTION WIDTH 16.2 % (11.5-14.5)
[2018-04-18 10:38] LABS: CALCIUM, TOTAL 8.7 mg/dL (8.8-10.5); CREATININE 2.6 mg/dL (0.60-1.30); MAGNESIUM 2.1 mg/dL (1.80-2.40); PHOSPHORUS 3.7 mg/dL (2.5-4.9); POTASSIUM 4.4 mmol/L (3.5-5.1)
[2018-04-18 11:30] VITALS: BP 120/73
[2018-04-18] MEDS: LEVOFLOXACIN 750 MG/D5% WATER 150 ML IV SCH (13:06)
[2018-04-18 15:28] VITALS: BP 122/70
[2018-04-18 19:52] VITALS: BP 119/72
[2018-04-19 00:40] VITALS: BP 152/82
[2018-04-19] MEDS: MORPHINE SULFATE 2 MG/ML SYRINGE IVP PRN ×3 (00:58→09:07)
[2018-04-19] MEDS: SODIUM CHLORIDE 0.9% 1,000 ML IV SCH (01:30)
[2018-04-19] MEDS: HYDROCODONE/ACETAMINOPHEN 5-325 MG TABLET PO PRN (02:41)
[2018-04-19] MEDS: ALBUTEROL SULFATE 2.5 MG/0.5 ML NEB SOLUTION NEB SCH ×3 (03:00→11:00)
[2018-04-19] MEDS: IPRATROPIUM BROMIDE 0.5 MG/2.5 ML NEB SOLUTION NEB SCH ×3 (03:00→11:00)
[2018-04-19 04:39] VITALS: BP 112/64
[2018-04-19 07:55] VITALS: BP 145/77
[2018-04-19 08:46] LABS: % IRON SATURATION 18.6 % (30-44)
[2018-04-19] MEDS: PANTOPRAZOLE SODIUM 40 MG/VIAL IVP SCH (09:05)
[2018-04-19] MEDS: CARVEDILOL 12.5 MG TABLET PO SCH (09:06)
[2018-04-19] MEDS: MULTIVITAMINS, THERAPEUTIC TABLET PO SCH (09:06)
[2018-04-19] MEDS: ASPIRIN 81 MG CHEWABLE TABLET PO SCH (09:06)
[2018-04-19] MEDS: DOCUSATE SODIUM 100 MG CAPSULE PO SCH (09:06)
[2018-04-19] MEDS: CloNIDine HCL 0.2 MG TABLET PO SCH (09:06)
[2018-04-19] MEDS: NIFEdipine 60 MG ER TABLET PO SCH (09:06)
[2018-04-19] MEDS: HEPARIN SODIUM,PORCINE 5,000 UNITS/ML VIAL SQ SCH ×2 (09:07)
[2018-04-19 11:28] VITALS: BP 157/90
[2018-04-19] MEDS ORDERED: NIFE60TA81 PO (11:30)
[2018-04-19] MEDS ORDERED: CIPR500S4 PO (11:31)
[2018-04-19 11:35] VITALS: BP 150/79
== END 2018-04-19 14:25 | disposition home or self-care (01) | DRG 194 ==
LOC: EMS 08:43 → UNDOADMIN 08:56 → AHU 08:56 → ICU 08:56 → 5N 04-14 20:30
PROVIDERS: ADMIT Hospitalist; ATTEND Hospitalist
PROC: 5A09357 Assistance with Respiratory Ventilation, Less than 24 Consecutive Hours, Continuous Positive Airway Pressure (ICD-10-PCS; principal; 2018-04-13)
PROC: 5A09357 Assistance with Respiratory Ventilation, Less than 24 Consecutive Hours, Continuous Positive Airway Pressure (ICD-10-PCS; 2018-04-14)
DX: I13.0 Hypertensive heart and chronic kidney disease with heart failure and stage 1 through stage 4 chronic kidney disease, or unspecified chronic kidney disease (principal); J96.01 Acute respiratory failure with hypoxia; N17.9 Acute kidney failure, unspecified; J18.9 Pneumonia, unspecified organism; E83.42 Hypomagnesemia; E87.5 Hyperkalemia; D64.9 Anemia, unspecified; S70.01XA Contusion of right hip, initial encounter; I50.30 Unspecified diastolic (congestive) heart failure; F19.10 Other psychoactive substance abuse, uncomplicated; Z91.14 Patient's other noncompliance with medication regimen; F15.10 Other stimulant abuse, uncomplicated; I16.1 Hypertensive emergency; I25.10 Atherosclerotic heart disease of native coronary artery without angina pectoris; I25.5 Ischemic cardiomyopathy; M85.80 Other specified disorders of bone density and structure, unspecified site; N18.2 Chronic kidney disease, stage 2 (mild); N40.0 Benign prostatic hyperplasia without lower urinary tract symptoms; Z59.0 Homelessness; Z87.891 Personal history of nicotine dependence; Z91.19 Patient's noncompliance with other medical treatment and regimen; X58.XXXA Exposure to other specified factors, initial encounter; Y93.9 Activity, unspecified; Y92.9 Unspecified place or not applicable; Y99.9 Unspecified external cause status
CPT/HCPCS: 36600; 71250; 73502; 74176; 82271; 82570; 82728; 82805; 83540; 83550; 83735; 84100; 84156; 84300; 84540; 86850; 86900; 86901; 87040; 87081; 87804; 93005; 93306; 94640; 94660; 96374; 97116; 97162; 97530; C9113; G0378; J0360; J1644; J1956; J2060; J2270; J2405; J3475; J7030; J7050; J7060

== ENCOUNTER 2018-05-15 18:58 | Emergency (ER) | payer OTHER ==
[~2018-05-15] VITALS: Ht 165.1 cm; Wt 63.6 kg
[~2018-05-15 18:58] MED LIST changes: +CIPR500S4 PO; -NIFE30TA5 PO; +NIFE60TA81 PO
[2018-05-15 19:27] VITALS: BP 247/138
[2018-05-15] MEDS ORDERED: FURO40 PO (19:43)
[2018-05-15] MEDS ORDERED: CLON.3 PO (19:56)
[2018-05-15] MEDS ORDERED: CARV25 PO (19:56)
[2018-05-15] MEDS ORDERED: HYDR-2924 PO (19:56)
[2018-05-15] MEDS ORDERED: SERT50TA12 PO (19:56)
[2018-05-15] MEDS ORDERED: ISOS30TA6 PO (19:56)
== END 2018-05-15 21:00 | disposition left against medical advice (07) ==
LOC: EMS 19:00
DX: J00 Acute nasopharyngitis [common cold] (principal); M79.10 Myalgia, unspecified site; I11.0 Hypertensive heart disease with heart failure; I50.9 Heart failure, unspecified; F41.9 Anxiety disorder, unspecified; F17.210 Nicotine dependence, cigarettes, uncomplicated; F15.90 Other stimulant use, unspecified, uncomplicated; F11.90 Opioid use, unspecified, uncomplicated; Z53.21 Procedure and treatment not carried out due to patient leaving prior to being seen by health care provider

== ENCOUNTER 2018-05-16 16:59 | Inpatient (IN) | payer OTHER ==
[~2018-05-16] VITALS: Ht 170.2 cm; Wt 66.6 kg
[~2018-05-16 16:59] MED LIST changes: -ASPI81 PO; -CARV12 PO; +CARV25 PO; -CIPR500S4 PO; -CLON.2 PO; +CLON.3 PO; -DSS100 PO; +FURO40 PO; +HYDR-2924 PO; +ISOS30TA6 PO; +SERT50TA12 PO
[2018-05-16] MEDS ORDERED: 0.9% SODIUM CHLORIDE 10 ML SYRINGE IVP PRN (19:30)
[2018-05-16 20:06] LABS: BASOPHILS % (AUTO) 0.7 % (0.0-2.0); EOSINOPHILS % (AUTO) 2.7 % (1.0-6.0); HEMOGLOBIN 13.3 g/dL (13.5-17.5); LYMPHOCYTES # (AUTO) 1.1 K/uL (1.0-4.8); LYMPHOCYTES % (AUTO) 10.3 % (22.0-44.0); MEAN CORPUSCULAR HEMOGLOBIN 26.7 pg (26.0-34.0); MEAN CORPUSCULAR HGB CONC 33.2 G/dL (31.0-37.0); MEAN CORPUSCULAR VOLUME 80 fL (80-100); MONOCYTES % (AUTO) 8.8 % (2.0-9.0); NEUTROPHILS # (AUTO) 8.6 K/uL (1.8-7.7); NEUTROPHILS % (AUTO) 77.5 % (40.0-70.0); PLATELET COUNT (AUTO) 187 K/uL (150-450); RED BLOOD CELL COUNT(AUTO) 4.97 MIL/uL (4.50-5.90); RED CELL DISTRIBUTION WIDTH 16.1 % (11.5-14.5)
[2018-05-16 20:14] LABS: CALCIUM, TOTAL 9.8 mg/dL (8.8-10.5); CREATININE 1.94 mg/dL (0.60-1.30); POTASSIUM 3.8 mmol/L (3.5-5.1)
[2018-05-16 20:15] LABS: PROTHROMBIN TIME 10.4 SEC (9.4-11.6)
[2018-05-16] MEDS ORDERED: HydrALAZINE HCL 20 MG/ML VIAL IVP ONE (20:15)
[2018-05-16] MEDS ORDERED: NiCARDipine HCL 50 MG in DEXTROSE 5%-WATER 230 ML IV PRN (20:15)
[2018-05-16] MEDS ORDERED: NITROGLYCERIN 0.4 MG SUBLINGUAL TABLET #25 SL ONE (20:15)
[2018-05-16] MEDS ORDERED: NITROGLYCERIN 2% (1 GM=INCH) PACKET TP ONE (20:15)
[2018-05-16 20:21] LABS: ALBUMIN 3.3 g/dL (3.4-5.0); BILIRUBIN,TOTAL 0.4 mg/dL (0.1-1.0); TOTAL PROTEIN, SERUM 8.1 g/dL (6.4-8.2)
[2018-05-16] MEDS ORDERED: MORPHINE SULFATE 4 MG/ML SYRINGE IVP ONE (21:00)
[2018-05-16] MEDS ORDERED: ONDANSETRON HCL 4 MG/2 ML VIAL IVP ONE (21:00)
[2018-05-16] MEDS ORDERED: AZITHROMYCIN 500 MG/NS 250 ML IV ONE (21:00)
[2018-05-16] MEDS ORDERED: CefTRIAXone 1 GM/DEXTROSE 50 ML IV ONE (21:00)
[2018-05-16] MEDS: NICARDipine 20 MG/DEXT,ISO-OSM 200 ML IV PRN ×2 (21:11→23:04)
[2018-05-16] MEDS ORDERED: ALBUTEROL SULFATE 2.5 MG/0.5 ML NEB SOLUTION NEB PRN (21:15)
[2018-05-16] MEDS ORDERED: OxyCODONE HCL/ACETAMINOPHEN 5-325 MG TABLET PO PRN (21:15)
[2018-05-16] MEDS ORDERED: MAGNESIUM HYDROXIDE SUSPENSION 30 ML UDCUP PO PRN (21:15)
[2018-05-16] MEDS ORDERED: ACETAMINOPHEN 325 MG TABLET PO PRN (21:15)
[2018-05-16 21:35] LABS: INFLUENZA TYPE A NEGATIVE FOR TYPE A (NEGATIVE); INFLUENZA TYPE B NEGATIVE FOR TYPE B (NEGATIVE)
[2018-05-16 22:28] LABS: APPEARANCE,URINE CLEAR (CLEAR); BILIRUBIN,URINE NEGATIVE (NEGATIVE); GLUCOSE, URINE (UA) NEGATIVE (NEGATIVE); KETONES,URINE NEGATIVE (NEGATIVE); LEUKOCYTE ESTERASE ,URINE NEGATIVE (NEGATIVE); NITRATE,URINE NEGATIVE (NEGATIVE); OCCULT BLOOD,URINE NEGATIVE (NEGATIVE); PROTEIN,URINE SEE CONFIRM (NEGATIVE); UROBILINOGEN,URINE 0.2 mg/dL (<=1.0)
[2018-05-16 22:30] LABS: AMPHET/METH SCREEN,URINE NEGATIVE (NEGATIVE); BARBITURATE SCREEN, URINE NEGATIVE (NEGATIVE); BENZODIAZEPINES SCREEN,URINE NEGATIVE (NEGATIVE); CANNABINOID SCREEN,URINE NEGATIVE (NEGATIVE); COCAINE SCREEN,URINE NEGATIVE (NEGATIVE); METHADONE SCREEN, URINE NEGATIVE (NEGATIVE); OPIATE SCREEN,URINE POSITIVE (NEGATIVE)
[2018-05-16 22:31] LABS: PHENCYCLIDINE SCREEN,URINE NEGATIVE (NEGATIVE)
[2018-05-16 22:56] LABS: SULFOSALICYLIC ACID,URINE 4+ (Negative)
[2018-05-16 22:58] LABS: BACTERIA,URINE None Seen /HPF (None Seen); RBC,URINE 0-2 /HPF (0-2); SQUAMOUS EPITHELIAL CELL,UR Rare /LPF (None Seen); WBC,URINE 0-2 /HPF (0-5)
[2018-05-17] VITALS (7 sets, daily range): BP systolic 152–184; BP diastolic 77–113
[2018-05-17] MEDS: CloNIDine HCL 0.1 MG TABLET PO PRN ×2 (01:57→15:29)
[2018-05-17] MEDS: NICARDipine 20 MG/DEXT,ISO-OSM 200 ML IV PRN ×6 (02:07→09:22)
[2018-05-17] MEDS: MORPHINE SULFATE 2 MG/ML SYRINGE IVP PRN ×2 (08:30→21:02)
[2018-05-17] MEDS: ONDANSETRON HCL 4 MG/2 ML VIAL IVP PRN (08:31)
[2018-05-17] MEDS: CloNIDine HCL 0.1 MG TABLET PO SCH ×2 (09:19→21:01)
[2018-05-17] MEDS: ASPIRIN 81 MG CHEWABLE TABLET PO SCH (09:19)
[2018-05-17] MEDS: FAMOTIDINE 20 MG TABLET PO SCH (09:20)
[2018-05-17] MEDS: DOCUSATE SODIUM 100 MG CAPSULE PO SCH ×2 (09:20→21:01)
[2018-05-17] MEDS: AmLODIPine BESYLATE 10 MG TABLET PO SCH (09:20)
[2018-05-17] MEDS ORDERED: 0.9% SODIUM CHLORIDE 5 ML NEB SOLUTION NEB ONE (20:59)
[2018-05-17] MEDS: HEPARIN SODIUM,PORCINE 5,000 UNITS/ML VIAL SQ SCH (21:02)
[2018-05-17] MEDS: CefTRIAXone 1 GM/DEXTROSE 50 ML IV SCH (21:02)
[2018-05-17] MEDS ORDERED: SODIUM CHLORIDE 0.9% 500 ML IV ONE (21:38)
[2018-05-17] MEDS: AZITHROMYCIN 500 MG/NS 250 ML IV SCH (21:53)
[2018-05-18] VITALS (7 sets, daily range): BP systolic 149–178; BP diastolic 84–104
[2018-05-18] MEDS: ONDANSETRON HCL 4 MG/2 ML VIAL IVP PRN (00:48)
[2018-05-18] MEDS: CloNIDine HCL 0.1 MG TABLET PO PRN ×2 (00:48→12:55)
[2018-05-18 06:09] LABS: BASOPHILS % (AUTO) 0.9 % (0.0-2.0); EOSINOPHILS % (AUTO) 5.5 % (1.0-6.0); HEMATOCRIT 31.4 % (41-53); HEMOGLOBIN 10.5 g/dL (13.5-17.5); LYMPHOCYTES # (AUTO) 1.1 K/uL (1.0-4.8); LYMPHOCYTES % (AUTO) 17.2 % (22.0-44.0); MEAN CORPUSCULAR HEMOGLOBIN 27.3 pg (26.0-34.0); MEAN CORPUSCULAR HGB CONC 33.5 G/dL (31.0-37.0); MEAN CORPUSCULAR VOLUME 81 fL (80-100); MONOCYTES # (AUTO) 0.8 K/uL (0.1-1.0); MONOCYTES % (AUTO) 13.1 % (2.0-9.0); NEUTROPHILS % (AUTO) 63.3 % (40.0-70.0); PLATELET COUNT (AUTO) 155 K/uL (150-450); RED BLOOD CELL COUNT(AUTO) 3.86 MIL/uL (4.50-5.90); RED CELL DISTRIBUTION WIDTH 15.4 % (11.5-14.5)
[2018-05-18 06:25] LABS: CALCIUM, TOTAL 8.5 mg/dL (8.8-10.5); CREATININE 2.17 mg/dL (0.60-1.30); POTASSIUM 4.4 mmol/L (3.5-5.1)
[2018-05-18] MEDS: MORPHINE SULFATE 2 MG/ML SYRINGE IVP PRN ×3 (08:11→19:52)
[2018-05-18] MEDS: HEPARIN SODIUM,PORCINE 5,000 UNITS/ML VIAL SQ SCH ×2 (08:15→19:53)
[2018-05-18] MEDS: CloNIDine HCL 0.1 MG TABLET PO SCH ×2 (08:17→19:53)
[2018-05-18] MEDS: DOCUSATE SODIUM 100 MG CAPSULE PO SCH ×2 (08:17→19:53)
[2018-05-18] MEDS: AmLODIPine BESYLATE 10 MG TABLET PO SCH (08:17)
[2018-05-18] MEDS: FAMOTIDINE 20 MG TABLET PO SCH (08:17)
[2018-05-18] MEDS: ASPIRIN 81 MG CHEWABLE TABLET PO SCH (08:18)
[2018-05-18] MEDS: CefTRIAXone 1 GM/DEXTROSE 50 ML IV SCH (19:53)
[2018-05-18] MEDS: AZITHROMYCIN 500 MG/NS 250 ML IV SCH (21:07)
[2018-05-19] MEDS: MORPHINE SULFATE 2 MG/ML SYRINGE IVP PRN ×4 (01:26→19:56)
[2018-05-19 04:45] VITALS: BP 184/106
[2018-05-19] MEDS: CloNIDine HCL 0.1 MG TABLET PO PRN (04:45)
[2018-05-19 07:53] VITALS: BP 192/102
[2018-05-19] MEDS: AmLODIPine BESYLATE 10 MG TABLET PO SCH (08:03)
[2018-05-19] MEDS: ASPIRIN 81 MG CHEWABLE TABLET PO SCH (08:03)
[2018-05-19] MEDS: FAMOTIDINE 20 MG TABLET PO SCH (08:04)
[2018-05-19] MEDS: CloNIDine HCL 0.1 MG TABLET PO SCH ×2 (08:04→19:45)
[2018-05-19] MEDS: DOCUSATE SODIUM 100 MG CAPSULE PO SCH ×2 (08:04→19:45)
[2018-05-19] MEDS: HEPARIN SODIUM,PORCINE 5,000 UNITS/ML VIAL SQ SCH ×2 (08:05→19:45)
[2018-05-19 09:53] VITALS: BP 180/74
[2018-05-19] MEDS: LOSARTAN POTASSIUM 50 MG TABLET PO SCH ×2 (10:24→19:45)
[2018-05-19 11:34] VITALS: BP 136/86
[2018-05-19 16:05] VITALS: BP 158/109
[2018-05-19 19:43] VITALS: BP 162/97
[2018-05-19] MEDS: CefTRIAXone 1 GM/DEXTROSE 50 ML IV SCH (19:45)
[2018-05-19] MEDS: AZITHROMYCIN 500 MG/NS 250 ML IV SCH (21:08)
[2018-05-20 00:13] VITALS: BP 158/82
[2018-05-20 04:18] VITALS: BP 155/97
[2018-05-20] MEDS: MORPHINE SULFATE 2 MG/ML SYRINGE IVP PRN ×4 (04:56→22:29)
[2018-05-20 07:24] VITALS: BP 150/84
[2018-05-20] MEDS: ASPIRIN 81 MG CHEWABLE TABLET PO SCH (08:58)
[2018-05-20] MEDS: CloNIDine HCL 0.1 MG TABLET PO SCH ×2 (09:02→22:19)
[2018-05-20] MEDS: AmLODIPine BESYLATE 10 MG TABLET PO SCH (09:02)
[2018-05-20] MEDS: DOCUSATE SODIUM 100 MG CAPSULE PO SCH ×2 (09:02→22:19)
[2018-05-20] MEDS: FAMOTIDINE 20 MG TABLET PO SCH (09:02)
[2018-05-20] MEDS: LOSARTAN POTASSIUM 50 MG TABLET PO SCH ×2 (09:03→22:19)
[2018-05-20] MEDS: HEPARIN SODIUM,PORCINE 5,000 UNITS/ML VIAL SQ SCH ×2 (09:03→21:00)
[2018-05-20 11:24] VITALS: BP 152/90
[2018-05-20 15:33] VITALS: BP 150/86
[2018-05-20 19:37] VITALS: BP 162/105
[2018-05-20] MEDS: CefTRIAXone 1 GM/DEXTROSE 50 ML IV SCH (20:49)
[2018-05-20] MEDS: AZITHROMYCIN 500 MG/NS 250 ML IV SCH (22:16)
[2018-05-21 00:17] VITALS: BP 167/90
[2018-05-21 03:34] VITALS: BP 165/85
[2018-05-21] MEDS: MORPHINE SULFATE 2 MG/ML SYRINGE IVP PRN ×3 (03:35→14:18)
[2018-05-21] MEDS: CloNIDine HCL 0.1 MG TABLET PO SCH (08:13)
[2018-05-21 08:14] VITALS: BP 190/100
[2018-05-21] MEDS: DOCUSATE SODIUM 100 MG CAPSULE PO SCH (08:14)
[2018-05-21] MEDS: AmLODIPine BESYLATE 10 MG TABLET PO SCH (08:15)
[2018-05-21] MEDS: ASPIRIN 81 MG CHEWABLE TABLET PO SCH (08:15)
[2018-05-21] MEDS: LOSARTAN POTASSIUM 50 MG TABLET PO SCH (08:15)
[2018-05-21] MEDS: FAMOTIDINE 20 MG TABLET PO SCH (08:15)
[2018-05-21] MEDS: HEPARIN SODIUM,PORCINE 5,000 UNITS/ML VIAL SQ SCH (08:16)
[2018-05-21 09:29] VITALS: BP 184/86
[2018-05-21 10:34] LABS: BASOPHILS % (AUTO) 0.3 % (0.0-2.0); EOSINOPHILS % (AUTO) 4.9 % (1.0-6.0); HEMATOCRIT 37.2 % (41-53); HEMOGLOBIN 12.4 g/dL (13.5-17.5); LYMPHOCYTES # (AUTO) 1.6 K/uL (1.0-4.8); LYMPHOCYTES % (AUTO) 22.4 % (22.0-44.0); MEAN CORPUSCULAR HEMOGLOBIN 27.1 pg (26.0-34.0); MEAN CORPUSCULAR HGB CONC 33.2 G/dL (31.0-37.0); MEAN CORPUSCULAR VOLUME 82 fL (80-100); MONOCYTES # (AUTO) 0.8 K/uL (0.1-1.0); MONOCYTES % (AUTO) 11.8 % (2.0-9.0); NEUTROPHILS # (AUTO) 4.3 K/uL (1.8-7.7); NEUTROPHILS % (AUTO) 60.6 % (40.0-70.0); PLATELET COUNT (AUTO) 201 K/uL (150-450); RED BLOOD CELL COUNT(AUTO) 4.56 MIL/uL (4.50-5.90); RED CELL DISTRIBUTION WIDTH 15.4 % (11.5-14.5)
[2018-05-21 10:46] LABS: CALCIUM, TOTAL 9.5 mg/dL (8.8-10.5); CREATININE 2.16 mg/dL (0.60-1.30); POTASSIUM 5.8 mmol/L (3.5-5.1)
[2018-05-21 11:34] VITALS: BP 154/65
== END 2018-05-21 16:00 | disposition left against medical advice (07) | DRG 199 ==
LOC: EMS 17:01 → ICU 23:00 → 5N 05-17 16:44 → 5S 05-20 16:08
PROVIDERS: ADMIT Internal Medicine; ATTEND Internal Medicine
DX: I16.0 Hypertensive urgency (principal); E43 Unspecified severe protein-calorie malnutrition; I50.23 Acute on chronic systolic (congestive) heart failure; J18.9 Pneumonia, unspecified organism; N18.4 Chronic kidney disease, stage 4 (severe); I13.0 Hypertensive heart and chronic kidney disease with heart failure and stage 1 through stage 4 chronic kidney disease, or unspecified chronic kidney disease; F19.10 Other psychoactive substance abuse, uncomplicated; J44.0 Chronic obstructive pulmonary disease with (acute) lower respiratory infection; F41.9 Anxiety disorder, unspecified; B95.7 Other staphylococcus as the cause of diseases classified elsewhere; Z53.21 Procedure and treatment not carried out due to patient leaving prior to being seen by health care provider; F17.210 Nicotine dependence, cigarettes, uncomplicated; Z86.73 Personal history of transient ischemic attack (TIA), and cerebral infarction without residual deficits; Z91.19 Patient's noncompliance with other medical treatment and regimen; Z87.01 Personal history of pneumonia (recurrent); Z68.23 Body mass index [BMI] 23.0-23.9, adult
CPT/HCPCS: 70450; 84145; 87040; 87081; 87205; 87804; 93005; 94640; 96374; 96375; 99291; G0378; J0360; J0456; J0696; J1644; J2270; J2405; J3490; J7040; J7060

== ENCOUNTER 2018-08-22 13:18 | Emergency (ER) | payer OTHER ==
[~2018-08-22] VITALS: Ht 167.6 cm; Wt 68.2 kg
[~2018-08-22 13:18] MED LIST changes: +DOXY150T PO; +METH10SO PO
[2018-08-22] MEDS ORDERED: LABETALOL HCL 5 MG/ML 20 ML VIAL IVP ONE (14:45)
[2018-08-22] MEDS ORDERED: CloNIDine HCL 0.2 MG TABLET PO ONE (15:15)
[2018-08-22] MEDS ORDERED: IPRATROPIUM BROMIDE 0.5 MG/2.5 ML NEB SOLUTION NEB ONE (15:30)
[2018-08-22] MEDS ORDERED: NITROGLYCERIN 2% (1 GM=INCH) PACKET TP ONE (15:30)
[2018-08-22] MEDS ORDERED: ALBUTEROL SULFATE 2.5 MG/0.5 ML NEB SOLUTION NEB ONE (15:30)
[2018-08-22] MEDS ORDERED: ASPIRIN 81 MG CHEWABLE TABLET PO ONE (15:30)
[2018-08-22] MEDS ORDERED: 0.9% SODIUM CHLORIDE 5 ML NEB SOLUTION NEB ONE (15:30)
[2018-08-22 15:42] VITALS: BP 192/75
[2018-08-22 15:49] LABS: BASOPHILS % (AUTO) 0.6 % (0.0-2.0); EOSINOPHILS % (AUTO) 1.4 % (1.0-6.0); HEMATOCRIT 37.9 % (41-53); HEMOGLOBIN 12.3 g/dL (13.5-17.5); LYMPHOCYTES # (AUTO) 0.9 K/uL (1.0-4.8); MEAN CORPUSCULAR HEMOGLOBIN 25.8 pg (26.0-34.0); MEAN CORPUSCULAR HGB CONC 32.5 G/dL (31.0-37.0); MEAN CORPUSCULAR VOLUME 79 fL (80-100); MONOCYTES # (AUTO) 0.9 K/uL (0.1-1.0); MONOCYTES % (AUTO) 8.2 % (2.0-9.0); NEUTROPHILS # (AUTO) 8.8 K/uL (1.8-7.7); NEUTROPHILS % (AUTO) 81.8 % (40.0-70.0); PLATELET COUNT (AUTO) 229 K/uL (150-450); RED BLOOD CELL COUNT(AUTO) 4.78 MIL/uL (4.50-5.90); RED CELL DISTRIBUTION WIDTH 16.7 % (11.5-14.5)
[2018-08-22 15:58] LABS: CALCIUM, TOTAL 9.2 mg/dL (8.8-10.5); CREATININE 2.42 mg/dL (0.60-1.30); POTASSIUM 3.5 mmol/L (3.5-5.1)
[2018-08-22 16:04] LABS: ALBUMIN 3.2 g/dL (3.4-5.0); BILIRUBIN,TOTAL 0.7 mg/dL (0.1-1.0); TOTAL PROTEIN, SERUM 7.6 g/dL (6.4-8.2)
== END 2018-08-22 15:42 | disposition home or self-care (01) ==
LOC: EMS 13:18
DX: J44.9 Chronic obstructive pulmonary disease, unspecified (principal); I10 Essential (primary) hypertension; F41.9 Anxiety disorder, unspecified; I11.0 Hypertensive heart disease with heart failure; I50.9 Heart failure, unspecified; F17.210 Nicotine dependence, cigarettes, uncomplicated; F13.10 Sedative, hypnotic or anxiolytic abuse, uncomplicated; F15.90 Other stimulant use, unspecified, uncomplicated; Z79.899 Other long term (current) drug therapy
CPT/HCPCS: 36415; 71045; 80053; 83880; 84484; 85025; 93005; 96374; 99285; G0480; J3490

== ENCOUNTER 2018-08-28 15:45 | Inpatient (IN) | payer OTHER ==
[~2018-08-28] VITALS: Ht 167.6 cm; Wt 67.2 kg
[2018-08-28] MEDS ORDERED: HydrALAZINE HCL 20 MG/ML VIAL IVP ONE ×2 (16:30→18:00)
[2018-08-28] MEDS ORDERED: NITROGLYCERIN 2% (1 GM=INCH) PACKET TP ONE (16:30)
[2018-08-28 16:39] LABS: BASOPHILS % (AUTO) 1.1 % (0.0-2.0); EOSINOPHILS % (AUTO) 2.5 % (1.0-6.0); HEMOGLOBIN 10.9 g/dL (13.5-17.5); LYMPHOCYTES # (AUTO) 0.9 K/uL (1.0-4.8); LYMPHOCYTES % (AUTO) 8.5 % (22.0-44.0); MEAN CORPUSCULAR HEMOGLOBIN 26.1 pg (26.0-34.0); MEAN CORPUSCULAR HGB CONC 33.1 G/dL (31.0-37.0); MEAN CORPUSCULAR VOLUME 79 fL (80-100); MONOCYTES # (AUTO) 0.5 K/uL (0.1-1.0); MONOCYTES % (AUTO) 5.2 % (2.0-9.0); NEUTROPHILS # (AUTO) 8.3 K/uL (1.8-7.7); NEUTROPHILS % (AUTO) 82.7 % (40.0-70.0); PLATELET COUNT (AUTO) 241 K/uL (150-450); RED BLOOD CELL COUNT(AUTO) 4.18 MIL/uL (4.50-5.90); RED CELL DISTRIBUTION WIDTH 16.4 % (11.5-14.5)
[2018-08-28 16:51] LABS: CALCIUM, TOTAL 8.9 mg/dL (8.8-10.5); CREATININE 2.73 mg/dL (0.60-1.30); POTASSIUM 4.2 mmol/L (3.5-5.1); PROTHROMBIN TIME 10.1 SEC (9.4-11.6)
[2018-08-28 17:16] LABS: ALBUMIN 2.8 g/dL (3.4-5.0); BILIRUBIN,TOTAL 0.4 mg/dL (0.1-1.0)
[2018-08-28 17:36] LABS: APPEARANCE,URINE CLEAR (CLEAR); BILIRUBIN,URINE NEGATIVE (NEGATIVE); GLUCOSE, URINE (UA) NEGATIVE (NEGATIVE); KETONES,URINE NEGATIVE (NEGATIVE); LEUKOCYTE ESTERASE ,URINE NEGATIVE (NEGATIVE); NITRATE,URINE NEGATIVE (NEGATIVE); OCCULT BLOOD,URINE NEGATIVE (NEGATIVE); PROTEIN,URINE SEE CONFIRM (NEGATIVE); UROBILINOGEN,URINE 0.2 mg/dL (<=1.0)
[2018-08-28 17:41] LABS: AMPHET/METH SCREEN,URINE POSITIVE (NEGATIVE); BARBITURATE SCREEN, URINE NEGATIVE (NEGATIVE); BENZODIAZEPINES SCREEN,URINE NEGATIVE (NEGATIVE); CANNABINOID SCREEN,URINE NEGATIVE (NEGATIVE); COCAINE SCREEN,URINE NEGATIVE (NEGATIVE); METHADONE SCREEN, URINE NEGATIVE (NEGATIVE); OPIATE SCREEN,URINE NEGATIVE (NEGATIVE)
[2018-08-28 17:53] LABS: PHENCYCLIDINE SCREEN,URINE NEGATIVE (NEGATIVE)
[2018-08-28] MEDS ORDERED: LORazepam 2 MG/ML VIAL IVP ONE (18:00)
[2018-08-28 18:03] LABS: SULFOSALICYLIC ACID,URINE 4+ (Negative)
[2018-08-28 18:05] LABS: BACTERIA,URINE Rare /HPF (None Seen); RBC,URINE 0-2 /HPF (0-2); SQUAMOUS EPITHELIAL CELL,UR Few /LPF (None Seen); WBC,URINE 0-2 /HPF (0-5)
[2018-08-28] MEDS: NICARDipine 20 MG/DEXT,ISO-OSM 200 ML IV PRN ×3 (18:22→20:23)
[2018-08-28] MEDS ORDERED: OxyCODONE HCL/ACETAMINOPHEN 5-325 MG TABLET PO PRN (19:15)
[2018-08-28] MEDS ORDERED: BISACODYL 10 MG RECTAL RECTAL SUPPOSITORY PR PRN (19:15)
[2018-08-28] MEDS ORDERED: MORPHINE SULFATE 2 MG/ML SYRINGE IVP PRN (19:15)
[2018-08-28] MEDS ORDERED: ACETAMINOPHEN 325 MG TABLET PO PRN (19:15)
[2018-08-28] MEDS: DOCUSATE SODIUM 100 MG CAPSULE PO SCH (20:27)
[2018-08-28] MEDS ORDERED: LORazepam 2 MG/ML VIAL IVP PRN (20:45)
[2018-08-28] MEDS ORDERED: AmLODIPine BESYLATE 10 MG TABLET PO ONE (22:00)
[2018-08-28] MEDS: FUROSEMIDE 20 MG/2 ML VIAL IVP SCH (22:08)
[2018-08-28] MEDS: CloNIDine HCL 0.1 MG TABLET PO PRN (23:10)
[2018-08-29] VITALS: BP 190/105
[2018-08-29] MEDS: NICARDipine 20 MG/DEXT,ISO-OSM 200 ML IV PRN ×5 (00:25→09:54)
[2018-08-29 04:00] VITALS: BP 173/85
[2018-08-29 08:00] VITALS: BP 143/94
[2018-08-29] MEDS: FUROSEMIDE 20 MG/2 ML VIAL IVP SCH ×2 (09:18→21:39)
[2018-08-29] MEDS: FAMOTIDINE 20 MG TABLET PO SCH (09:18)
[2018-08-29] MEDS: LOSARTAN POTASSIUM 50 MG TABLET PO SCH ×2 (09:19→21:39)
[2018-08-29] MEDS: DOCUSATE SODIUM 100 MG CAPSULE PO SCH ×2 (09:19→21:39)
[2018-08-29] MEDS: ASPIRIN 81 MG CHEWABLE TABLET PO SCH (09:19)
[2018-08-29] MEDS: AmLODIPine BESYLATE 10 MG TABLET PO SCH (09:19)
[2018-08-29] MEDS ORDERED: NiCARDipine HCL 25 MG in DEXTROSE 5%-WATER 240 ML IV PRN (10:15)
[2018-08-29 12:00] VITALS: BP 150/84
[2018-08-29] MEDS: CloNIDine HCL 0.1 MG TABLET PO PRN (14:07)
[2018-08-29 16:00] VITALS: BP 175/108
[2018-08-29] MEDS ORDERED: CloNIDine HCL 0.1 MG TABLET PO SCH (16:00)
[2018-08-29] MEDS: CloNIDine HCL 0.2 MG TABLET PO SCH ×2 (16:18→23:14)
[2018-08-29 20:06] VITALS: BP 161/81
[2018-08-30] VITALS (7 sets, daily range): BP systolic 132–179; BP diastolic 75–109
[2018-08-30 06:42] LABS: BASOPHILS % (AUTO) 0.9 % (0.0-2.0); EOSINOPHILS % (AUTO) 3.3 % (1.0-6.0); HEMATOCRIT 33.6 % (41-53); LYMPHOCYTES # (AUTO) 1.2 K/uL (1.0-4.8); LYMPHOCYTES % (AUTO) 13.7 % (22.0-44.0); MEAN CORPUSCULAR HEMOGLOBIN 26.7 pg (26.0-34.0); MEAN CORPUSCULAR HGB CONC 32.7 G/dL (31.0-37.0); MEAN CORPUSCULAR VOLUME 82 fL (80-100); MONOCYTES # (AUTO) 0.9 K/uL (0.1-1.0); MONOCYTES % (AUTO) 9.8 % (2.0-9.0); NEUTROPHILS # (AUTO) 6.4 K/uL (1.8-7.7); NEUTROPHILS % (AUTO) 72.3 % (40.0-70.0); PLATELET COUNT (AUTO) 268 K/uL (150-450); RED BLOOD CELL COUNT(AUTO) 4.11 MIL/uL (4.50-5.90); RED CELL DISTRIBUTION WIDTH 16.3 % (11.5-14.5)
[2018-08-30 06:43] LABS: CALCIUM, TOTAL 8.8 mg/dL (8.8-10.5); CREATININE 2.86 mg/dL (0.60-1.30); POTASSIUM 4.1 mmol/L (3.5-5.1)
[2018-08-30] MEDS: LOSARTAN POTASSIUM 50 MG TABLET PO SCH ×2 (08:40→20:42)
[2018-08-30] MEDS: DOCUSATE SODIUM 100 MG CAPSULE PO SCH ×2 (08:40→20:42)
[2018-08-30] MEDS: ASPIRIN 81 MG CHEWABLE TABLET PO SCH (08:40)
[2018-08-30] MEDS: FUROSEMIDE 20 MG/2 ML VIAL IVP SCH ×2 (08:41→20:43)
[2018-08-30] MEDS: FAMOTIDINE 20 MG TABLET PO SCH (08:41)
[2018-08-30] MEDS: AmLODIPine BESYLATE 10 MG TABLET PO SCH (08:41)
[2018-08-31 04:41] VITALS: BP 150/82
[2018-08-31 07:45] VITALS: BP 124/74
[2018-08-31] MEDS: AmLODIPine BESYLATE 10 MG TABLET PO SCH (08:02)
[2018-08-31] MEDS: ASPIRIN 81 MG CHEWABLE TABLET PO SCH (08:02)
[2018-08-31] MEDS: FUROSEMIDE 20 MG/2 ML VIAL IVP SCH (08:03)
[2018-08-31] MEDS: LOSARTAN POTASSIUM 50 MG TABLET PO SCH (08:03)
[2018-08-31] MEDS: DOCUSATE SODIUM 100 MG CAPSULE PO SCH (08:03)
[2018-08-31] MEDS: FAMOTIDINE 20 MG TABLET PO SCH (08:03)
[2018-08-31 11:44] VITALS: BP 127/68
== END 2018-08-31 14:40 | disposition home or self-care (01) | DRG 199 ==
LOC: EMS 15:47 → ICU 19:14 → 5S 20:05
PROVIDERS: ADMIT Internal Medicine; ATTEND Internal Medicine
DX: I16.1 Hypertensive emergency (principal); G92 Toxic encephalopathy; N17.9 Acute kidney failure, unspecified; N18.4 Chronic kidney disease, stage 4 (severe); I50.9 Heart failure, unspecified; I13.0 Hypertensive heart and chronic kidney disease with heart failure and stage 1 through stage 4 chronic kidney disease, or unspecified chronic kidney disease; I73.9 Peripheral vascular disease, unspecified; F19.10 Other psychoactive substance abuse, uncomplicated; F17.210 Nicotine dependence, cigarettes, uncomplicated; F41.9 Anxiety disorder, unspecified; F60.9 Personality disorder, unspecified; J44.9 Chronic obstructive pulmonary disease, unspecified; Z91.19 Patient's noncompliance with other medical treatment and regimen
CPT/HCPCS: 87081; 93005; 99406; G0378; J0360; J1940; J2060; J3490; J7060

== ENCOUNTER 2018-09-15 22:22 | Emergency (ER) | payer OTHER ==
[~2018-09-15 22:22] MED LIST changes: -CARV25 PO; -DOXY150T PO; -FURO40 PO; -HYDR-2924 PO; -METH10SO PO; -NIFE60TA81 PO; -SERT50TA12 PO
[2018-09-15 22:49] LABS: GLUCOSE,POINT OF CARE 77 MG/DL (70-110)
== END 2018-09-15 22:40 | disposition left against medical advice (07) ==
LOC: EMS 22:24
DX: R69 Illness, unspecified (principal); Z53.21 Procedure and treatment not carried out due to patient leaving prior to being seen by health care provider

== ENCOUNTER 2019-04-04 05:08 | Emergency (ER) | payer OTHER ==
[~2019-04-04] VITALS: Ht 172.7 cm; Wt 68.2 kg
[~2019-04-04 05:08] MED LIST changes: -CLON.3 PO; +CLON0.3T PO
[2019-04-04] MEDS ORDERED: ASPIRIN 81 MG CHEWABLE TABLET PO ONE (06:15)
[2019-04-04 06:44] LABS: BASOPHILS % (AUTO) 0.8 % (0.0-2.0); EOSINOPHILS % (AUTO) 4.1 % (1.0-6.0); HEMATOCRIT 33.2 % (41-53); HEMOGLOBIN 10.8 g/dL (13.5-17.5); LYMPHOCYTES # (AUTO) 1.1 K/uL (1.0-4.8); MEAN CORPUSCULAR HEMOGLOBIN 26.6 pg (26.0-34.0); MEAN CORPUSCULAR HGB CONC 32.7 G/dL (31.0-37.0); MEAN CORPUSCULAR VOLUME 81 fL (80-100); MONOCYTES # (AUTO) 0.8 K/uL (0.1-1.0); MONOCYTES % (AUTO) 8.6 % (2.0-9.0); NEUTROPHILS # (AUTO) 6.5 K/uL (1.8-7.7); NEUTROPHILS % (AUTO) 73.5 % (40.0-70.0); PLATELET COUNT (AUTO) 281 K/uL (150-450); RED BLOOD CELL COUNT(AUTO) 4.08 MIL/uL (4.50-5.90); RED CELL DISTRIBUTION WIDTH 15.5 % (11.5-14.5)
[2019-04-04 06:57] LABS: CALCIUM, TOTAL 8.8 mg/dL (8.8-10.5); CREATININE 3.57 mg/dL (0.60-1.30); POTASSIUM 3.8 mmol/L (3.5-5.1)
[2019-04-04 07:06] LABS: AMPHET/METH SCREEN,URINE NEGATIVE (NEGATIVE); APPEARANCE,URINE CLEAR (CLEAR); BARBITURATE SCREEN, URINE NEGATIVE (NEGATIVE); BENZODIAZEPINES SCREEN,URINE NEGATIVE (NEGATIVE); BILIRUBIN,URINE NEGATIVE (NEGATIVE); CANNABINOID SCREEN,URINE NEGATIVE (NEGATIVE); COCAINE SCREEN,URINE NEGATIVE (NEGATIVE); GLUCOSE, URINE (UA) NEGATIVE (NEGATIVE); KETONES,URINE NEGATIVE (NEGATIVE); LEUKOCYTE ESTERASE ,URINE NEGATIVE (NEGATIVE); METHADONE SCREEN, URINE NEGATIVE (NEGATIVE); NITRATE,URINE NEGATIVE (NEGATIVE); OCCULT BLOOD,URINE TRACE (NEGATIVE); OPIATE SCREEN,URINE NEGATIVE (NEGATIVE); PROTEIN,URINE SEE CONFIRM (NEGATIVE); UROBILINOGEN,URINE 0.2 mg/dL (<=1.0)
[2019-04-04 07:08] LABS: PHENCYCLIDINE SCREEN,URINE NEGATIVE (NEGATIVE)
[2019-04-04 07:11] LABS: BACTERIA,URINE None Seen /HPF (None Seen); RBC,URINE 0-2 /HPF (0-2); SULFOSALICYLIC ACID,URINE 3+ (Negative); WBC,URINE 0-2 /HPF (0-5)
[2019-04-04 07:22] LABS: ALBUMIN 2.8 g/dL (3.4-5.0); BILIRUBIN,TOTAL 0.3 mg/dL (0.1-1.0); TOTAL PROTEIN, SERUM 7.2 g/dL (6.4-8.2)
[2019-04-04] MEDS ORDERED: ISOSORBIDE MONONITRATE 60 MG ER TABLET PO ONE (07:30)
[2019-04-04] MEDS ORDERED: FUROSEMIDE 40 MG/4 ML VIAL IVP ONE (07:30)
[2019-04-04] MEDS ORDERED: CloNIDine HCL 0.1 MG TABLET PO ONE (07:30)
[2019-04-04] MEDS ORDERED: NiCARDipine HCL 25 MG in DEXTROSE 5%-WATER 240 ML IV PRN (07:38)
[2019-04-04] MEDS ORDERED: 0.9% SODIUM CHLORIDE 10 ML SYRINGE IVP PRN ×2 (07:45→08:15)
[2019-04-04] MEDS ORDERED: ONDANSETRON HCL 4 MG/2 ML VIAL IVP PRN ×2 (07:45→08:15)
[2019-04-04] MEDS ORDERED: ACETAMINOPHEN 325 MG TABLET PO PRN ×3 (07:45→10:00)
[2019-04-04] MEDS ORDERED: BISACODYL 10 MG RECTAL RECTAL SUPPOSITORY PR PRN (10:00)
[2019-04-04] MEDS ORDERED: AmLODIPine BESYLATE 10 MG TABLET PO SCH (10:00)
[2019-04-04 13:30] VITALS: BP 144/95
[2019-04-04] MEDS ORDERED: HEPARIN SODIUM,PORCINE 5,000 UNITS/ML VIAL SQ SCH (21:00)
[2019-04-04] MEDS ORDERED: DOCUSATE SODIUM 100 MG CAPSULE PO SCH (21:00)
[2019-04-05] MEDS ORDERED: ASPIRIN 81 MG CHEWABLE TABLET PO SCH (09:00)
[2019-04-05] MEDS ORDERED: FAMOTIDINE 20 MG TABLET PO SCH (09:00)
== END 2019-04-04 15:33 | disposition left against medical advice (07) ==
LOC: EMS 05:08
DX: I16.1 Hypertensive emergency (principal); I50.9 Heart failure, unspecified; J45.909 Unspecified asthma, uncomplicated; F17.210 Nicotine dependence, cigarettes, uncomplicated; F11.90 Opioid use, unspecified, uncomplicated; F15.90 Other stimulant use, unspecified, uncomplicated; Z98.890 Other specified postprocedural states; Z79.899 Other long term (current) drug therapy
CPT/HCPCS: 36415; 70450; 71045; 80053; 80307; 81001; 82550; 83880; 84484; 85025; 93005; 96365; 96366; 96375; 99285; J1940; J3490; J7060

== ENCOUNTER 2019-04-12 15:54 | Inpatient (IN) | payer OTHER ==
[~2019-04-12] VITALS: Ht 172.7 cm; Wt 61.4 kg
[2019-04-12 16:35] LABS: BASOPHILS % (AUTO) 0.7 % (0.0-2.0); EOSINOPHILS % (AUTO) 5.5 % (1.0-6.0); HEMATOCRIT 32.4 % (41-53); HEMOGLOBIN 10.7 g/dL (13.5-17.5); LYMPHOCYTES # (AUTO) 1.1 K/uL (1.0-4.8); LYMPHOCYTES % (AUTO) 11.1 % (22.0-44.0); MEAN CORPUSCULAR HEMOGLOBIN 26.4 pg (26.0-34.0); MEAN CORPUSCULAR HGB CONC 32.9 G/dL (31.0-37.0); MEAN CORPUSCULAR VOLUME 80 fL (80-100); MONOCYTES # (AUTO) 0.7 K/uL (0.1-1.0); MONOCYTES % (AUTO) 7.5 % (2.0-9.0); NEUTROPHILS # (AUTO) 7.3 K/uL (1.8-7.7); NEUTROPHILS % (AUTO) 75.2 % (40.0-70.0); PLATELET COUNT (AUTO) 278 K/uL (150-450); RED BLOOD CELL COUNT(AUTO) 4.03 MIL/uL (4.50-5.90); RED CELL DISTRIBUTION WIDTH 15.2 % (11.5-14.5)
[2019-04-12] MEDS ORDERED: NITROGLYCERIN 2% (1 GM=INCH) PACKET TP ONE (16:45)
[2019-04-12 16:53] LABS: CALCIUM, TOTAL 8.9 mg/dL (8.8-10.5); CREATININE 3.73 mg/dL (0.60-1.30); POTASSIUM 4.2 mmol/L (3.5-5.1)
[2019-04-12 17:00] LABS: ALBUMIN 2.9 g/dL (3.4-5.0); BILIRUBIN,TOTAL 0.3 mg/dL (0.1-1.0); TOTAL PROTEIN, SERUM 7.6 g/dL (6.4-8.2)
[2019-04-12 17:30] LABS: AMPHET/METH SCREEN,URINE POSITIVE (NEGATIVE); BARBITURATE SCREEN, URINE NEGATIVE (NEGATIVE); BENZODIAZEPINES SCREEN,URINE NEGATIVE (NEGATIVE); CANNABINOID SCREEN,URINE NEGATIVE (NEGATIVE); COCAINE SCREEN,URINE NEGATIVE (NEGATIVE); METHADONE SCREEN, URINE NEGATIVE (NEGATIVE); OPIATE SCREEN,URINE NEGATIVE (NEGATIVE)
[2019-04-12 17:35] LABS: PHENCYCLIDINE SCREEN,URINE NEGATIVE (NEGATIVE)
[2019-04-12] MEDS: NiCARDipine HCL 25 MG in DEXTROSE 5%-WATER 240 ML IV PRN ×2 (17:50→22:17)
[2019-04-12] MEDS ORDERED: FUROSEMIDE 40 MG/4 ML VIAL IVP ONE (18:00)
[2019-04-12] MEDS ORDERED: ACETAMINOPHEN 325 MG TABLET PO PRN (18:15)
[2019-04-12] MEDS ORDERED: 0.9% SODIUM CHLORIDE 10 ML SYRINGE IVP PRN (18:15)
[2019-04-12] MEDS ORDERED: ONDANSETRON HCL 4 MG/2 ML VIAL IVP PRN (18:15)
[2019-04-12] MEDS ORDERED: LORazepam 2 MG/ML VIAL IVP ONE (18:15)
[2019-04-13] MEDS: NiCARDipine HCL 25 MG in DEXTROSE 5%-WATER 240 ML IV PRN ×5 (01:12→21:00)
[2019-04-13] MEDS ORDERED: MAGNESIUM HYDROXIDE SUSPENSION 30 ML UDCUP PO PRN (03:15)
[2019-04-13] MEDS ORDERED: ONDANSETRON HCL 4 MG/2 ML VIAL IVP PRN (03:15)
[2019-04-13] MEDS ORDERED: ACETAMINOPHEN 325 MG TABLET PO PRN (03:15)
[2019-04-13 04:52] LABS: BASOPHILS % (AUTO) 0.9 % (0.0-2.0); HEMATOCRIT 32.1 % (41-53); HEMOGLOBIN 10.6 g/dL (13.5-17.5); LYMPHOCYTES # (AUTO) 1.2 K/uL (1.0-4.8); LYMPHOCYTES % (AUTO) 10.7 % (22.0-44.0); MEAN CORPUSCULAR HEMOGLOBIN 26.3 pg (26.0-34.0); MEAN CORPUSCULAR VOLUME 80 fL (80-100); MONOCYTES # (AUTO) 0.8 K/uL (0.1-1.0); MONOCYTES % (AUTO) 7.7 % (2.0-9.0); NEUTROPHILS # (AUTO) 8.2 K/uL (1.8-7.7); NEUTROPHILS % (AUTO) 75.7 % (40.0-70.0); PLATELET COUNT (AUTO) 269 K/uL (150-450); RED BLOOD CELL COUNT(AUTO) 4.03 MIL/uL (4.50-5.90)
[2019-04-13 05:06] LABS: ALBUMIN 2.8 g/dL (3.4-5.0); BILIRUBIN,TOTAL 0.3 mg/dL (0.1-1.0); CALCIUM, TOTAL 8.5 mg/dL (8.8-10.5); CREATININE 3.79 mg/dL (0.60-1.30); POTASSIUM 3.8 mmol/L (3.5-5.1); TOTAL PROTEIN, SERUM 7.3 g/dL (6.4-8.2)
[2019-04-13] MEDS ORDERED: LORazepam 2 MG/ML VIAL IVP SCH (08:00)
[2019-04-13] MEDS ORDERED: HALOPERIDOL LACTATE 5 MG/ML VIAL IM ONE (08:00)
[2019-04-13] MEDS: CARVEDILOL 3.125 MG TABLET PO SCH ×2 (08:49→21:00)
[2019-04-13] MEDS: FAMOTIDINE 10 MG/ML 2 ML VIAL IVP SCH (08:49)
[2019-04-13] MEDS: FUROSEMIDE 20 MG/2 ML VIAL IVP SCH (08:50)
[2019-04-13] MEDS: DOCUSATE SODIUM 100 MG CAPSULE PO SCH ×2 (08:50→21:00)
[2019-04-13] MEDS: LORazepam 2 MG/ML VIAL IVP PRN ×2 (09:10→23:30)
[2019-04-13] MEDS: ISOSORBIDE MONONITRATE 30 MG ER TABLET PO SCH (09:10)
[2019-04-13 12:59] LABS: BASOPHILS % (AUTO) 0.7 % (0.0-2.0); HEMATOCRIT 34.5 % (41-53); HEMOGLOBIN 11.6 g/dL (13.5-17.5); LYMPHOCYTES # (AUTO) 1.1 K/uL (1.0-4.8); LYMPHOCYTES % (AUTO) 10.1 % (22.0-44.0); MEAN CORPUSCULAR HEMOGLOBIN 26.9 pg (26.0-34.0); MEAN CORPUSCULAR HGB CONC 33.6 G/dL (31.0-37.0); MEAN CORPUSCULAR VOLUME 80 fL (80-100); MONOCYTES # (AUTO) 0.5 K/uL (0.1-1.0); MONOCYTES % (AUTO) 5.2 % (2.0-9.0); NEUTROPHILS # (AUTO) 8.2 K/uL (1.8-7.7); PLATELET COUNT (AUTO) 305 K/uL (150-450); RED BLOOD CELL COUNT(AUTO) 4.31 MIL/uL (4.50-5.90); RED CELL DISTRIBUTION WIDTH 14.7 % (11.5-14.5)
[2019-04-13 13:08] LABS: CALCIUM, TOTAL 9.1 mg/dL (8.8-10.5); CREATININE 3.71 mg/dL (0.60-1.30)
[2019-04-13 13:17] LABS: ALBUMIN 3.1 g/dL (3.4-5.0); BILIRUBIN,TOTAL 0.4 mg/dL (0.1-1.0); TOTAL PROTEIN, SERUM 8.3 g/dL (6.4-8.2)
[2019-04-14] VITALS (7 sets, daily range): BP systolic 152–194; BP diastolic 83–115
[2019-04-14] MEDS: NiCARDipine HCL 25 MG in DEXTROSE 5%-WATER 240 ML IV PRN ×4 (00:01→05:38)
[2019-04-14] MEDS: FUROSEMIDE 20 MG/2 ML VIAL IVP SCH (02:30)
[2019-04-14 05:46] LABS: BASOPHILS % (AUTO) 0.6 % (0.0-2.0); EOSINOPHILS % (AUTO) 3.6 % (1.0-6.0); HEMOGLOBIN 11.1 g/dL (13.5-17.5); LYMPHOCYTES # (AUTO) 0.8 K/uL (1.0-4.8); LYMPHOCYTES % (AUTO) 8.7 % (22.0-44.0); MEAN CORPUSCULAR HEMOGLOBIN 26.1 pg (26.0-34.0); MEAN CORPUSCULAR HGB CONC 32.5 G/dL (31.0-37.0); MEAN CORPUSCULAR VOLUME 80 fL (80-100); MONOCYTES # (AUTO) 0.6 K/uL (0.1-1.0); MONOCYTES % (AUTO) 5.8 % (2.0-9.0); NEUTROPHILS # (AUTO) 7.7 K/uL (1.8-7.7); NEUTROPHILS % (AUTO) 81.3 % (40.0-70.0); PLATELET COUNT (AUTO) 302 K/uL (150-450); RED BLOOD CELL COUNT(AUTO) 4.24 MIL/uL (4.50-5.90); RED CELL DISTRIBUTION WIDTH 14.8 % (11.5-14.5)
[2019-04-14] MEDS: HydrALAZINE HCL 20 MG/ML VIAL IVP PRN ×3 (05:46→15:45)
[2019-04-14 06:02] LABS: CALCIUM, TOTAL 8.9 mg/dL (8.8-10.5); CREATININE 4.4 mg/dL (0.60-1.30)
[2019-04-14] MEDS: FAMOTIDINE 10 MG/ML 2 ML VIAL IVP SCH (09:33)
[2019-04-14] MEDS: ISOSORBIDE MONONITRATE 30 MG ER TABLET PO SCH (09:33)
[2019-04-14] MEDS: CARVEDILOL 3.125 MG TABLET PO SCH (09:34)
[2019-04-14] MEDS: DOCUSATE SODIUM 100 MG CAPSULE PO SCH ×2 (09:34→20:54)
[2019-04-14] MEDS ORDERED: NIFEdipine 60 MG ER TABLET PO ONE ×2 (15:30→21:45)
[2019-04-14] MEDS: LORazepam 2 MG/ML VIAL IVP PRN (20:54)
[2019-04-14] MEDS: CARVEDILOL 25 MG TABLET PO SCH (20:54)
[2019-04-14] MEDS: OxyCODONE HCL/ACETAMINOPHEN 5-325 MG TABLET PO PRN (22:40)
[2019-04-15] MEDS: OxyCODONE HCL/ACETAMINOPHEN 5-325 MG TABLET PO PRN (03:04)
[2019-04-15 04:02] VITALS: BP 152/87
[2019-04-15 06:39] LABS: GLUCOMETER DEV NAME(LOC) 5N.1; GLUCOSE,POINT OF CARE 105 MG/DL (70-110)
[2019-04-15 07:50] VITALS: BP 140/72
[2019-04-15] MEDS: FUROSEMIDE 20 MG/2 ML VIAL IVP SCH (09:11)
[2019-04-15] MEDS: DOCUSATE SODIUM 100 MG CAPSULE PO SCH ×2 (09:11→20:30)
[2019-04-15] MEDS: LORazepam 2 MG/ML VIAL IVP PRN ×3 (09:11→20:31)
[2019-04-15] MEDS: FAMOTIDINE 10 MG/ML 2 ML VIAL IVP SCH (09:11)
[2019-04-15] MEDS: ISOSORBIDE MONONITRATE 30 MG ER TABLET PO SCH (09:12)
[2019-04-15] MEDS: CARVEDILOL 25 MG TABLET PO SCH ×2 (09:12→20:30)
[2019-04-15 10:23] LABS: CALCIUM, TOTAL 8.6 mg/dL (8.8-10.5); CREATININE 5.29 mg/dL (0.60-1.30); POTASSIUM 5.1 mmol/L (3.5-5.1)
[2019-04-15 10:27] LABS: MAGNESIUM 1.9 mg/dL (1.80-2.40); PHOSPHORUS 5.4 mg/dL (2.5-4.9)
[2019-04-15 15:50] VITALS: BP 182/130
[2019-04-15] MEDS: HydrALAZINE HCL 20 MG/ML VIAL IVP PRN ×2 (15:51→20:26)
[2019-04-15] MEDS: NIFEdipine 60 MG ER TABLET PO SCH (18:50)
[2019-04-15 21:10] VITALS: BP_SYST 138; BP_SYST 178; BP_DIAS 100; BP_DIAS 82
[2019-04-15 23:52] VITALS: BP 168/98
[2019-04-16] MEDS: HydrALAZINE HCL 20 MG/ML VIAL IVP PRN (03:31)
[2019-04-16 04:43] VITALS: BP 243/148
[2019-04-16 04:45] VITALS: BP 184/120
[2019-04-16] MEDS ORDERED: HydrALAZINE HCL 20 MG/ML VIAL IVP ONE (06:15)
[2019-04-16 08:10] LABS: CALCIUM, TOTAL 9.2 mg/dL (8.8-10.5); CREATININE 5.81 mg/dL (0.60-1.30); MAGNESIUM 2.2 mg/dL (1.80-2.40); PHOSPHORUS 4.7 mg/dL (2.5-4.9); POTASSIUM 4.6 mmol/L (3.5-5.1)
[2019-04-16] MEDS: LORazepam 2 MG/ML VIAL IVP PRN ×3 (11:09→20:41)
[2019-04-16 12:52] VITALS: BP 159/115
[2019-04-16] MEDS: ISOSORBIDE MONONITRATE 30 MG ER TABLET PO SCH (14:55)
[2019-04-16] MEDS: CARVEDILOL 25 MG TABLET PO SCH ×2 (14:55→21:00)
[2019-04-16] MEDS: FUROSEMIDE 20 MG/2 ML VIAL IVP SCH (14:56)
[2019-04-16] MEDS: NIFEdipine 60 MG ER TABLET PO SCH ×2 (14:56→15:05)
[2019-04-16] MEDS: FAMOTIDINE 10 MG/ML 2 ML VIAL IVP SCH (14:56)
[2019-04-16] MEDS: DOCUSATE SODIUM 100 MG CAPSULE PO SCH ×2 (15:03→21:00)
[2019-04-16 16:00] VITALS: BP 153/72
[2019-04-16 20:11] VITALS: BP 106/39
[2019-04-16] MEDS: OxyCODONE HCL/ACETAMINOPHEN 5-325 MG TABLET PO PRN (23:46)
[2019-04-16 23:52] VITALS: BP 149/85
[2019-04-17] MEDS: LORazepam 2 MG/ML VIAL IVP PRN ×2 (00:15→03:54)
[2019-04-17 04:13] VITALS: BP 155/82
[2019-04-17] MEDS: ISOSORBIDE MONONITRATE 30 MG ER TABLET PO SCH (09:54)
[2019-04-17] MEDS: NIFEdipine 60 MG ER TABLET PO SCH (09:54)
[2019-04-17] MEDS: CARVEDILOL 25 MG TABLET PO SCH ×2 (09:55→20:20)
[2019-04-17] MEDS: DOCUSATE SODIUM 100 MG CAPSULE PO SCH ×2 (09:55→20:20)
[2019-04-17 09:58] VITALS: BP 184/98
[2019-04-17] MEDS: FAMOTIDINE 10 MG/ML 2 ML VIAL IVP SCH (10:15)
[2019-04-17] MEDS: FUROSEMIDE 20 MG/2 ML VIAL IVP SCH (10:15)
[2019-04-17 18:00] VITALS: BP 162/92
[2019-04-17 20:01] VITALS: BP 216/136
[2019-04-17 21:23] VITALS: BP 169/95
[2019-04-17] MEDS: OxyCODONE HCL/ACETAMINOPHEN 5-325 MG TABLET PO PRN (22:43)
[2019-04-18 04:36] VITALS: BP 110/51
[2019-04-18 07:56] LABS: APPEARANCE,URINE CLEAR (CLEAR); BILIRUBIN,URINE NEGATIVE (NEGATIVE); GLUCOSE, URINE (UA) NEGATIVE (NEGATIVE); KETONES,URINE NEGATIVE (NEGATIVE); LEUKOCYTE ESTERASE ,URINE NEGATIVE (NEGATIVE); NITRATE,URINE NEGATIVE (NEGATIVE); OCCULT BLOOD,URINE SMALL (NEGATIVE); PH,URINE 6.5 (5.0-8.0); PROTEIN,URINE SEE CONFIRM (NEGATIVE); UROBILINOGEN,URINE 0.2 mg/dL (<=1.0)
[2019-04-18 08:09] LABS: SODIUM,URINE RANDOM 31 mmol/l (20-110); UREA NITROGEN,URINE RANDOM 567 mg/dL (350-1000)
[2019-04-18 08:25] LABS: SULFOSALICYLIC ACID,URINE 3+ (Negative); WBC,URINE None Seen /HPF (0-5)
[2019-04-18 08:26] LABS: CALCIUM, TOTAL 8.6 mg/dL (8.8-10.5); CREATININE 6.09 mg/dL (0.60-1.30); MAGNESIUM 2.2 mg/dL (1.80-2.40); PHOSPHORUS 6.3 mg/dL (2.5-4.9); POTASSIUM 5.5 mmol/L (3.5-5.1)
[2019-04-18 08:26] LABS: BACTERIA,URINE None Seen /HPF (None Seen); SQUAMOUS EPITHELIAL CELL,UR Rare /LPF (None Seen)
[2019-04-18] MEDS: FUROSEMIDE 20 MG/2 ML VIAL IVP SCH (09:00)
[2019-04-18] MEDS: CARVEDILOL 25 MG TABLET PO SCH ×2 (09:00→21:27)
[2019-04-18] MEDS: FAMOTIDINE 10 MG/ML 2 ML VIAL IVP SCH (09:00)
[2019-04-18] MEDS: NIFEdipine 60 MG ER TABLET PO SCH (09:18)
[2019-04-18] MEDS: DOCUSATE SODIUM 100 MG CAPSULE PO SCH ×2 (09:18→21:27)
[2019-04-18] MEDS: ISOSORBIDE MONONITRATE 30 MG ER TABLET PO SCH (09:18)
[2019-04-18 09:21] VITALS: BP 119/73
[2019-04-18] MEDS ORDERED: SODIUM ZIRCONIUM CYCLOSILICATE 5 GM POWDER PACKET PO SCH (11:00)
[2019-04-18 16:01] LABS: CREATININE,URINE RANDOM 58.9 mg/dL (30.0-125.0); PROTEIN,URINE RANDOM 400 mg/dL (0-11.9)
[2019-04-18 17:47] VITALS: BP 192/115
[2019-04-18] MEDS: CloNIDine HCL 0.2 MG TABLET PO PRN (17:52)
[2019-04-18 20:13] VITALS: BP 196/115
[2019-04-19] VITALS (8 sets, daily range): BP systolic 135–198; BP diastolic 82–136
[2019-04-19] MEDS: OxyCODONE HCL/ACETAMINOPHEN 5-325 MG TABLET PO PRN ×2 (00:48→05:32)
[2019-04-19] MEDS: CloNIDine HCL 0.2 MG TABLET PO PRN (05:32)
[2019-04-19 08:11] LABS: CALCIUM, TOTAL 8.4 mg/dL (8.8-10.5); CREATININE 6.05 mg/dL (0.60-1.30); POTASSIUM 5.9 mmol/L (3.5-5.1)
[2019-04-19] MEDS: NIFEdipine 60 MG ER TABLET PO SCH (08:28)
[2019-04-19] MEDS: DOCUSATE SODIUM 100 MG CAPSULE PO SCH ×2 (08:28→20:18)
[2019-04-19] MEDS: FUROSEMIDE 20 MG/2 ML VIAL IVP SCH (08:29)
[2019-04-19] MEDS: CARVEDILOL 25 MG TABLET PO SCH ×2 (08:29→20:18)
[2019-04-19] MEDS: ISOSORBIDE MONONITRATE 30 MG ER TABLET PO SCH (08:29)
[2019-04-19] MEDS: FAMOTIDINE 10 MG/ML 2 ML VIAL IVP SCH (08:30)
[2019-04-19] MEDS ORDERED: ALBUTEROL SULFATE 2.5 MG/0.5 ML NEB SOLUTION NEB ONE (08:45)
[2019-04-19] MEDS ORDERED: DEXTROSE 50%-WATER 25 GM/50 ML SYRINGE IVP ONE ×3 (09:30→11:00)
[2019-04-19] MEDS ORDERED: INSULIN REGULAR, HUMAN 100 UNITS/ML SQ ONE (09:30)
[2019-04-19] MEDS ORDERED: INSULIN REGULAR, HUMAN 100 UNITS/ML IVP ONE (09:30)
[2019-04-19] MEDS: FUROSEMIDE 40 MG/4 ML VIAL IVP SCH (09:33)
[2019-04-19 10:41] LABS: GLUCOMETER DEV NAME(LOC) 5S.2A; GLUCOSE,POINT OF CARE 85 MG/DL (70-110)
[2019-04-19] MEDS: SODIUM ZIRCONIUM CYCLOSILICATE 5 GM POWDER PACKET PO SCH (11:08)
[2019-04-19 13:03] LABS: GLUCOMETER DEV NAME(LOC) 5S.2A; GLUCOSE,POINT OF CARE 40 MG/DL (70-110)
[2019-04-19 13:03] LABS: GLUCOMETER DEV NAME(LOC) 5S.2A; GLUCOSE,POINT OF CARE 145 MG/DL (70-110)
[2019-04-19 15:32] LABS: CALCIUM, TOTAL 8.3 mg/dL (8.8-10.5); CREATININE 6.02 mg/dL (0.60-1.30); POTASSIUM 5.3 mmol/L (3.5-5.1)
[2019-04-20] VITALS (8 sets, daily range): BP systolic 144–184; BP diastolic 81–115
[2019-04-20] MEDS: OxyCODONE HCL/ACETAMINOPHEN 5-325 MG TABLET PO PRN ×3 (02:10→20:55)
[2019-04-20] MEDS: HydrALAZINE HCL 20 MG/ML VIAL IVP PRN ×2 (04:00→05:20)
[2019-04-20] MEDS: CloNIDine HCL 0.2 MG TABLET PO PRN ×2 (04:03→20:58)
[2019-04-20 05:01] LABS: GLUCOMETER DEV NAME(LOC) 5N.2; GLUCOSE,POINT OF CARE 119 MG/DL (70-110)
[2019-04-20 06:44] LABS: GLUCOMETER DEV NAME(LOC) 5S.2A; GLUCOSE,POINT OF CARE 131 MG/DL (70-110)
[2019-04-20] MEDS: FUROSEMIDE 40 MG/4 ML VIAL IVP SCH (08:03)
[2019-04-20] MEDS: CARVEDILOL 25 MG TABLET PO SCH ×2 (08:04→20:55)
[2019-04-20] MEDS: ISOSORBIDE MONONITRATE 30 MG ER TABLET PO SCH (08:04)
[2019-04-20] MEDS: DOCUSATE SODIUM 100 MG CAPSULE PO SCH ×2 (08:04→20:55)
[2019-04-20] MEDS: NIFEdipine 60 MG ER TABLET PO SCH (08:13)
[2019-04-20 08:25] LABS: BASOPHILS % (AUTO) 1.4 % (0.0-2.0); EOSINOPHILS % (AUTO) 4.9 % (1.0-6.0); HEMATOCRIT 29.7 % (41-53); HEMOGLOBIN 9.6 g/dL (13.5-17.5); LYMPHOCYTES # (AUTO) 1.4 K/uL (1.0-4.8); LYMPHOCYTES % (AUTO) 15.6 % (22.0-44.0); MEAN CORPUSCULAR HEMOGLOBIN 26.1 pg (26.0-34.0); MEAN CORPUSCULAR HGB CONC 32.5 G/dL (31.0-37.0); MEAN CORPUSCULAR VOLUME 80 fL (80-100); MONOCYTES # (AUTO) 0.9 K/uL (0.1-1.0); MONOCYTES % (AUTO) 10.3 % (2.0-9.0); NEUTROPHILS % (AUTO) 67.8 % (40.0-70.0); PLATELET COUNT (AUTO) 245 K/uL (150-450); RED CELL DISTRIBUTION WIDTH 14.6 % (11.5-14.5)
[2019-04-20 08:38] LABS: CALCIUM, TOTAL 8.6 mg/dL (8.8-10.5); CREATININE 5.68 mg/dL (0.60-1.30); PHOSPHORUS 5.8 mg/dL (2.5-4.9); POTASSIUM 4.7 mmol/L (3.5-5.1)
[2019-04-20] MEDS: SODIUM ZIRCONIUM CYCLOSILICATE 5 GM POWDER PACKET PO SCH (09:00)
[2019-04-20] MEDS ORDERED: BARIUM SULFATE 0.1% SUSPENSION 450 ML BOTTLE ONE (16:13)
[2019-04-20 17:27] LABS: GLUCOMETER DEV NAME(LOC) 5N.2; GLUCOSE,POINT OF CARE 104 MG/DL (70-110)
[2019-04-20] MEDS: LORazepam 2 MG/ML VIAL IVP PRN (21:49)
[2019-04-21] MEDS: CARVEDILOL 25 MG TABLET PO SCH ×2 (09:06→21:01)
[2019-04-21] MEDS: DOCUSATE SODIUM 100 MG CAPSULE PO SCH ×2 (09:06→21:01)
[2019-04-21] MEDS: NIFEdipine 60 MG ER TABLET PO SCH (09:07)
[2019-04-21] MEDS: ISOSORBIDE MONONITRATE 30 MG ER TABLET PO SCH (09:07)
[2019-04-21] MEDS: FUROSEMIDE 40 MG/4 ML VIAL IVP SCH (09:08)
[2019-04-21] MEDS: SODIUM ZIRCONIUM CYCLOSILICATE 5 GM POWDER PACKET PO SCH (09:12)
[2019-04-21 09:20] LABS: BASOPHILS % (AUTO) 1.4 % (0.0-2.0); EOSINOPHILS % (AUTO) 3.6 % (1.0-6.0); HEMATOCRIT 26.8 % (41-53); HEMOGLOBIN 8.9 g/dL (13.5-17.5); LYMPHOCYTES % (AUTO) 10.8 % (22.0-44.0); MEAN CORPUSCULAR HEMOGLOBIN 26.5 pg (26.0-34.0); MEAN CORPUSCULAR VOLUME 80 fL (80-100); MONOCYTES # (AUTO) 0.7 K/uL (0.1-1.0); MONOCYTES % (AUTO) 7.6 % (2.0-9.0); NEUTROPHILS # (AUTO) 6.9 K/uL (1.8-7.7); NEUTROPHILS % (AUTO) 76.6 % (40.0-70.0); PLATELET COUNT (AUTO) 227 K/uL (150-450); RED BLOOD CELL COUNT(AUTO) 3.34 MIL/uL (4.50-5.90); RED CELL DISTRIBUTION WIDTH 14.8 % (11.5-14.5)
[2019-04-21 09:30] VITALS: BP 189/110
[2019-04-21 09:38] LABS: CREATININE 5.37 mg/dL (0.60-1.30); POTASSIUM 4.4 mmol/L (3.5-5.1)
[2019-04-21 09:39] LABS: CALCIUM, TOTAL 8.3 mg/dL (8.8-10.5); PHOSPHORUS 5.7 mg/dL (2.5-4.9)
[2019-04-21 10:00] VITALS: BP 184/104
[2019-04-21] MEDS: HydrALAZINE HCL 20 MG/ML VIAL IVP PRN (11:17)
[2019-04-21] MEDS: 0.9% SODIUM CHLORIDE 10 ML SYRINGE IVP PRN (11:18)
[2019-04-21 11:25] VITALS: BP 175/79
[2019-04-21 12:07] VITALS: BP 139/88
[2019-04-21 13:09] LABS: ABG A-A DIFF O2 33.9 mmHg (10-20.0); ABG BASE EXCESS -3.5 mmol/L (-2.0-3.0); ABG CARBOXYHEMOGLOBIN 0.4 % (0.0-1.5); ABG METHEMOGLOBIN 0.3 % (0.0-1.5); ABG OXYGEN SATURATION 95.4 % (95.0-98.0); ABG OXYHEMOGLOBIN 94.7 % (94.0-100.0); ABG PCO2 32 mmHg (35-45); ABG TOTAL HEMOGLOBIN 9.7 G/dL (12.0-18.0); PO2, ARTERIAL BG 77.4 mmHg (84.0-92.0); SITE, BLOOD GAS RT RADIAL; SOURCE, BLOOD GAS ARTERIAL; TEMPERATURE, FAHRENHEIT, BG 98.6 FAHREN (96.0-98.6)
[2019-04-21] MEDS: LORazepam 2 MG/ML VIAL IVP PRN (15:14)
[2019-04-21 16:50] VITALS: BP 155/102
[2019-04-21 19:19] VITALS: BP 137/69
[2019-04-22] MEDS: LORazepam 2 MG/ML VIAL IVP PRN ×2 (00:08→23:01)
[2019-04-22 07:40] LABS: BASOPHILS % (AUTO) 1.2 % (0.0-2.0); HEMATOCRIT 27.1 % (41-53); LYMPHOCYTES # (AUTO) 1.1 K/uL (1.0-4.8); LYMPHOCYTES % (AUTO) 12.5 % (22.0-44.0); MEAN CORPUSCULAR HEMOGLOBIN 26.7 pg (26.0-34.0); MEAN CORPUSCULAR HGB CONC 33.4 G/dL (31.0-37.0); MEAN CORPUSCULAR VOLUME 80 fL (80-100); MONOCYTES # (AUTO) 0.7 K/uL (0.1-1.0); MONOCYTES % (AUTO) 7.9 % (2.0-9.0); NEUTROPHILS # (AUTO) 6.8 K/uL (1.8-7.7); NEUTROPHILS % (AUTO) 74.4 % (40.0-70.0); PLATELET COUNT (AUTO) 261 K/uL (150-450); RED BLOOD CELL COUNT(AUTO) 3.38 MIL/uL (4.50-5.90); RED CELL DISTRIBUTION WIDTH 14.9 % (11.5-14.5)
[2019-04-22 07:53] LABS: CALCIUM, TOTAL 8.4 mg/dL (8.8-10.5); CREATININE 4.77 mg/dL (0.60-1.30); MAGNESIUM 1.9 mg/dL (1.80-2.40); PHOSPHORUS 5.2 mg/dL (2.5-4.9); POTASSIUM 4.8 mmol/L (3.5-5.1)
[2019-04-22 08:00] VITALS: BP 170/95
[2019-04-22] MEDS: FUROSEMIDE 40 MG/4 ML VIAL IVP SCH (08:15)
[2019-04-22] MEDS: NIFEdipine 60 MG ER TABLET PO SCH (08:15)
[2019-04-22] MEDS: HydrALAZINE HCL 20 MG/ML VIAL IVP PRN (08:15)
[2019-04-22] MEDS: DOCUSATE SODIUM 100 MG CAPSULE PO SCH ×2 (08:15→22:09)
[2019-04-22] MEDS: CARVEDILOL 25 MG TABLET PO SCH ×2 (08:16→22:09)
[2019-04-22] MEDS: ISOSORBIDE MONONITRATE 30 MG ER TABLET PO SCH (08:16)
[2019-04-22] MEDS: EPOETIN ALFA 10,000 UNITS/ML 2 ML VIAL SQ SCH (08:17)
[2019-04-22] MEDS: 0.9% SODIUM CHLORIDE 10 ML SYRINGE IVP PRN (08:18)
[2019-04-22] MEDS: SODIUM ZIRCONIUM CYCLOSILICATE 5 GM POWDER PACKET PO SCH (10:02)
[2019-04-22] MEDS ORDERED: HALOPERIDOL LACTATE 5 MG/ML VIAL ONE (16:29)
[2019-04-22] MEDS ORDERED: DiphenhydrAMINE HCL 50 MG/ML VIAL ONE (16:29)
[2019-04-22] MEDS ORDERED: HALOPERIDOL LACTATE 5 MG/ML VIAL IM ONE (16:30)
[2019-04-22] MEDS ORDERED: LORazepam 2 MG/ML VIAL IM ONE (16:30)
[2019-04-22] MEDS ORDERED: DiphenhydrAMINE HCL 50 MG/ML VIAL IM ONE (16:30)
[2019-04-23 06:52] LABS: CALCIUM, TOTAL 8.6 mg/dL (8.8-10.5); CREATININE 4.62 mg/dL (0.60-1.30); POTASSIUM 4.3 mmol/L (3.5-5.1)
[2019-04-23 07:00] VITALS: BP 209/117
[2019-04-23 07:00] LABS: BASOPHILS % (AUTO) 1.1 % (0.0-2.0); EOSINOPHILS % (AUTO) 4.2 % (1.0-6.0); HEMATOCRIT 29.3 % (41-53); HEMOGLOBIN 9.8 g/dL (13.5-17.5); LYMPHOCYTES # (AUTO) 1.2 K/uL (1.0-4.8); LYMPHOCYTES % (AUTO) 14.2 % (22.0-44.0); MEAN CORPUSCULAR HEMOGLOBIN 26.7 pg (26.0-34.0); MEAN CORPUSCULAR HGB CONC 33.3 G/dL (31.0-37.0); MEAN CORPUSCULAR VOLUME 80 fL (80-100); MONOCYTES # (AUTO) 0.7 K/uL (0.1-1.0); MONOCYTES % (AUTO) 7.6 % (2.0-9.0); NEUTROPHILS # (AUTO) 6.2 K/uL (1.8-7.7); NEUTROPHILS % (AUTO) 72.9 % (40.0-70.0); PLATELET COUNT (AUTO) 291 K/uL (150-450); RED BLOOD CELL COUNT(AUTO) 3.65 MIL/uL (4.50-5.90); RED CELL DISTRIBUTION WIDTH 14.6 % (11.5-14.5)
[2019-04-23] MEDS: HydrALAZINE HCL 20 MG/ML VIAL IVP PRN ×2 (07:02→12:42)
[2019-04-23] MEDS: ISOSORBIDE MONONITRATE 30 MG ER TABLET PO SCH (07:48)
[2019-04-23] MEDS: NIFEdipine 60 MG ER TABLET PO SCH (07:48)
[2019-04-23] MEDS: DOCUSATE SODIUM 100 MG CAPSULE PO SCH ×2 (07:48→20:31)
[2019-04-23] MEDS: CARVEDILOL 25 MG TABLET PO SCH ×2 (07:48→20:29)
[2019-04-23] MEDS: FUROSEMIDE 40 MG/4 ML VIAL IVP SCH (07:49)
[2019-04-23] MEDS: SODIUM ZIRCONIUM CYCLOSILICATE 5 GM POWDER PACKET PO SCH (07:50)
[2019-04-23 11:55] VITALS: BP 189/112
[2019-04-23] MEDS ORDERED: IPRATROPIUM BROMIDE 0.5 MG/2.5 ML NEB SOLUTION NEB PRN (15:15)
[2019-04-23] MEDS ORDERED: ALBUTEROL SULFATE 2.5 MG/0.5 ML NEB SOLUTION NEB PRN (15:15)
[2019-04-23] MEDS: HALOPERIDOL 5 MG TABLET PO PRN (20:29)
[2019-04-23] MEDS: LORazepam 2 MG TABLET PO PRN (20:29)
[2019-04-24] MEDS: LORazepam 2 MG TABLET PO PRN ×3 (03:53→20:27)
[2019-04-24] MEDS: HALOPERIDOL 5 MG TABLET PO PRN ×2 (03:53→22:59)
[2019-04-24] MEDS: HydrALAZINE HCL 20 MG/ML VIAL IVP PRN (04:49)
[2019-04-24 04:52] VITALS: BP 191/90
[2019-04-24 05:58] VITALS: BP 102/76
[2019-04-24] MEDS: DOCUSATE SODIUM 100 MG CAPSULE PO SCH ×2 (08:54→20:26)
[2019-04-24] MEDS: FUROSEMIDE 40 MG/4 ML VIAL IVP SCH (08:55)
[2019-04-24] MEDS: SODIUM ZIRCONIUM CYCLOSILICATE 5 GM POWDER PACKET PO SCH (09:00)
[2019-04-24 09:02] VITALS: BP 108/81
[2019-04-24] MEDS: EPOETIN ALFA 10,000 UNITS/ML 2 ML VIAL SQ SCH (09:16)
[2019-04-24 09:27] LABS: BASOPHILS % (AUTO) 0.6 % (0.0-2.0); EOSINOPHILS % (AUTO) 2.7 % (1.0-6.0); HEMOGLOBIN 10.7 g/dL (13.5-17.5); LYMPHOCYTES # (AUTO) 0.9 K/uL (1.0-4.8); LYMPHOCYTES % (AUTO) 7.4 % (22.0-44.0); MEAN CORPUSCULAR HEMOGLOBIN 26.1 pg (26.0-34.0); MEAN CORPUSCULAR HGB CONC 32.5 G/dL (31.0-37.0); MEAN CORPUSCULAR VOLUME 80 fL (80-100); MONOCYTES # (AUTO) 0.9 K/uL (0.1-1.0); NEUTROPHILS # (AUTO) 10.1 K/uL (1.8-7.7); NEUTROPHILS % (AUTO) 82.3 % (40.0-70.0); PLATELET COUNT (AUTO) 309 K/uL (150-450); RED BLOOD CELL COUNT(AUTO) 4.11 MIL/uL (4.50-5.90); RED CELL DISTRIBUTION WIDTH 14.9 % (11.5-14.5)
[2019-04-24 10:09] LABS: CALCIUM, TOTAL 9.1 mg/dL (8.8-10.5); CREATININE 4.41 mg/dL (0.60-1.30); POTASSIUM 4.4 mmol/L (3.5-5.1)
[2019-04-24] MEDS: RisperiDONE 1 MG TABLET PO SCH ×2 (10:24→20:26)
[2019-04-24] MEDS: LORazepam 2 MG/ML VIAL IVP PRN ×2 (15:52→21:47)
[2019-04-24] MEDS: CARVEDILOL 25 MG TABLET PO SCH ×2 (15:55→20:26)
[2019-04-24] MEDS: NIFEdipine 60 MG ER TABLET PO SCH (15:55)
[2019-04-24] MEDS: ISOSORBIDE MONONITRATE 30 MG ER TABLET PO SCH (15:55)
[2019-04-24 16:19] VITALS: BP 145/76
[2019-04-25] MEDS: LORazepam 2 MG TABLET PO PRN ×2 (01:06→19:29)
[2019-04-25] MEDS: CARVEDILOL 25 MG TABLET PO SCH ×2 (09:00→20:03)
[2019-04-25] MEDS: FUROSEMIDE 40 MG/4 ML VIAL IVP SCH (09:00)
[2019-04-25] MEDS: SODIUM ZIRCONIUM CYCLOSILICATE 5 GM POWDER PACKET PO SCH (09:00)
[2019-04-25] MEDS: NIFEdipine 60 MG ER TABLET PO SCH (09:00)
[2019-04-25] MEDS: DOCUSATE SODIUM 100 MG CAPSULE PO SCH ×2 (09:00→20:03)
[2019-04-25] MEDS: ISOSORBIDE MONONITRATE 30 MG ER TABLET PO SCH (09:00)
[2019-04-25] MEDS: RisperiDONE 1 MG TABLET PO SCH ×2 (09:00→20:02)
[2019-04-25] MEDS: OxyCODONE HCL/ACETAMINOPHEN 5-325 MG TABLET PO PRN ×2 (13:28→20:00)
[2019-04-25 14:05] VITALS: BP 129/82
[2019-04-26] MEDS: HALOPERIDOL 5 MG TABLET PO PRN ×2 (00:57→21:37)
[2019-04-26] MEDS: OxyCODONE HCL/ACETAMINOPHEN 5-325 MG TABLET PO PRN ×2 (01:06→09:32)
[2019-04-26] MEDS: SODIUM ZIRCONIUM CYCLOSILICATE 5 GM POWDER PACKET PO SCH (09:00)
[2019-04-26] MEDS: FUROSEMIDE 40 MG/4 ML VIAL IVP SCH (09:00)
[2019-04-26] MEDS: DOCUSATE SODIUM 100 MG CAPSULE PO SCH ×2 (09:28→20:16)
[2019-04-26] MEDS: NIFEdipine 60 MG ER TABLET PO SCH (09:29)
[2019-04-26] MEDS: ISOSORBIDE MONONITRATE 30 MG ER TABLET PO SCH (09:29)
[2019-04-26] MEDS: CARVEDILOL 25 MG TABLET PO SCH ×2 (09:29→20:16)
[2019-04-26] MEDS: RisperiDONE 1 MG TABLET PO SCH ×2 (09:30→20:16)
[2019-04-26] MEDS: LORazepam 2 MG TABLET PO PRN ×2 (09:31→21:09)
[2019-04-26] MEDS: EPOETIN ALFA 10,000 UNITS/ML 2 ML VIAL SQ SCH (09:31)
[2019-04-26 10:24] LABS: BASOPHILS % (AUTO) 0.8 % (0.0-2.0); HEMATOCRIT 30.9 % (41-53); HEMOGLOBIN 10.2 g/dL (13.5-17.5); LYMPHOCYTES # (AUTO) 0.9 K/uL (1.0-4.8); MEAN CORPUSCULAR HEMOGLOBIN 26.6 pg (26.0-34.0); MEAN CORPUSCULAR HGB CONC 33.1 G/dL (31.0-37.0); MEAN CORPUSCULAR VOLUME 80 fL (80-100); MONOCYTES # (AUTO) 0.7 K/uL (0.1-1.0); MONOCYTES % (AUTO) 6.3 % (2.0-9.0); NEUTROPHILS # (AUTO) 9.6 K/uL (1.8-7.7); NEUTROPHILS % (AUTO) 82.9 % (40.0-70.0); PLATELET COUNT (AUTO) 294 K/uL (150-450); RED BLOOD CELL COUNT(AUTO) 3.85 MIL/uL (4.50-5.90)
[2019-04-26 10:30] LABS: CALCIUM, TOTAL 9.1 mg/dL (8.8-10.5); CREATININE 5.39 mg/dL (0.60-1.30); PHOSPHORUS 5.6 mg/dL (2.5-4.9); POTASSIUM 5.1 mmol/L (3.5-5.1)
[2019-04-26] MEDS: CloNIDine HCL 0.2 MG TABLET PO PRN (12:11)
[2019-04-26] MEDS ORDERED: FUROSEMIDE 40 MG TABLET PO SCH (15:15)
[2019-04-26 16:58] LABS: GLUCOMETER DEV NAME(LOC) 5N.2; GLUCOSE,POINT OF CARE 95 MG/DL (70-110)
[2019-04-26 17:09] VITALS: BP 168/118
[2019-04-26 19:39] VITALS: BP 148/82
[2019-04-26 23:22] VITALS: BP 163/98
[2019-04-27] VITALS (8 sets, daily range): BP systolic 148–194; BP diastolic 93–121
[2019-04-27] MEDS: OxyCODONE HCL/ACETAMINOPHEN 5-325 MG TABLET PO PRN (02:17)
[2019-04-27] MEDS: CARVEDILOL 25 MG TABLET PO SCH ×2 (08:36→20:14)
[2019-04-27] MEDS: NIFEdipine 60 MG ER TABLET PO SCH (08:37)
[2019-04-27] MEDS: ISOSORBIDE MONONITRATE 30 MG ER TABLET PO SCH (08:38)
[2019-04-27] MEDS: DOCUSATE SODIUM 100 MG CAPSULE PO SCH ×2 (09:41→20:15)
[2019-04-27] MEDS: RisperiDONE 1 MG TABLET PO SCH ×2 (09:41→20:14)
[2019-04-27] MEDS: SODIUM ZIRCONIUM CYCLOSILICATE 5 GM POWDER PACKET PO SCH (09:42)
[2019-04-27] MEDS: HydrALAZINE HCL 20 MG/ML VIAL IVP PRN (12:25)
[2019-04-27] MEDS: SEVELAMER CARBONATE 800 MG TABLET PO SCH ×2 (12:26→18:39)
[2019-04-27] MEDS: CloNIDine HCL 0.2 MG TABLET PO PRN (20:20)
[2019-04-27] MEDS ORDERED: LOSARTAN POTASSIUM 25 MG TABLET PO SCH (21:00)
[2019-04-28] VITALS (9 sets, daily range): BP systolic 150–194; BP diastolic 78–113
[2019-04-28] MEDS: SEVELAMER CARBONATE 800 MG TABLET PO SCH ×3 (07:59→18:27)
[2019-04-28] MEDS: DOCUSATE SODIUM 100 MG CAPSULE PO SCH ×2 (08:00→19:56)
[2019-04-28] MEDS: SODIUM ZIRCONIUM CYCLOSILICATE 5 GM POWDER PACKET PO SCH (08:00)
[2019-04-28] MEDS: CARVEDILOL 25 MG TABLET PO SCH ×2 (08:01→22:15)
[2019-04-28] MEDS: RisperiDONE 1 MG TABLET PO SCH ×2 (08:01→19:55)
[2019-04-28] MEDS: NIFEdipine 60 MG ER TABLET PO SCH (08:01)
[2019-04-28] MEDS: ISOSORBIDE MONONITRATE 30 MG ER TABLET PO SCH (08:04)
[2019-04-28 09:13] LABS: CALCIUM, TOTAL 8.6 mg/dL (8.8-10.5); CREATININE 5.81 mg/dL (0.60-1.30); PHOSPHORUS 6.4 mg/dL (2.5-4.9); POTASSIUM 4.7 mmol/L (3.5-5.1)
[2019-04-28] MEDS: CloNIDine HCL 0.2 MG TABLET PO PRN (09:56)
[2019-04-28] MEDS: HydrALAZINE HCL 50 MG TABLET PO SCH ×2 (12:51→19:56)
[2019-04-29] VITALS (9 sets, daily range): BP systolic 125–222; BP diastolic 96–136
[2019-04-29] MEDS: LORazepam 2 MG TABLET PO PRN (04:30)
[2019-04-29] MEDS: CloNIDine HCL 0.2 MG TABLET PO PRN ×2 (04:30→14:44)
[2019-04-29] MEDS: DOCUSATE SODIUM 100 MG CAPSULE PO SCH ×2 (09:00→19:55)
[2019-04-29 09:38] LABS: CREATININE 5.73 mg/dL (0.60-1.30)
[2019-04-29] MEDS ORDERED: HydrALAZINE HCL 20 MG/ML VIAL IVP ONE (09:45)
[2019-04-29 09:52] LABS: HEMATOCRIT 28.9 % (41-53); HEMOGLOBIN 9.6 g/dL (13.5-17.5); MEAN CORPUSCULAR HEMOGLOBIN 26.9 pg (26.0-34.0); MEAN CORPUSCULAR HGB CONC 33.1 G/dL (31.0-37.0); MEAN CORPUSCULAR VOLUME 81 fL (80-100); PLATELET COUNT (AUTO) 285 K/uL (150-450); RED BLOOD CELL COUNT(AUTO) 3.55 MIL/uL (4.50-5.90); RED CELL DISTRIBUTION WIDTH 15.2 % (11.5-14.5)
[2019-04-29 09:55] LABS: BAND NEUTROPHILS % (MANUAL) 2 % (0-5); EOSINOPHILS % (MANUAL) 2 % (1-6); LYMPHOCYTES % (MANUAL) 9 % (22-44); MONOCYTES % (MANUAL) 7 % (2-9); SEGMENTED NEUTROPHILS % 80 % (40-70)
[2019-04-29] MEDS: ISOSORBIDE MONONITRATE 30 MG ER TABLET PO SCH (10:48)
[2019-04-29] MEDS: CARVEDILOL 25 MG TABLET PO SCH ×2 (10:48→19:55)
[2019-04-29] MEDS: SEVELAMER CARBONATE 800 MG TABLET PO SCH ×3 (10:48→18:31)
[2019-04-29] MEDS: NIFEdipine 30 MG ER TABLET PO SCH (10:49)
[2019-04-29] MEDS: HydrALAZINE HCL 50 MG TABLET PO SCH ×2 (10:49→19:55)
[2019-04-29] MEDS: SODIUM ZIRCONIUM CYCLOSILICATE 5 GM POWDER PACKET PO SCH (10:50)
[2019-04-30] VITALS (10 sets, daily range): BP systolic 137–199; BP diastolic 84–142
[2019-04-30] MEDS: OxyCODONE HCL/ACETAMINOPHEN 5-325 MG TABLET PO PRN (02:44)
[2019-04-30] MEDS: CloNIDine HCL 0.2 MG TABLET PO PRN (05:24)
[2019-04-30 06:50] LABS: HEMOGLOBIN 9.8 g/dL (13.5-17.5); LYMPHOCYTES # (AUTO) 0.9 K/uL (1.0-4.8); LYMPHOCYTES % (AUTO) 11.5 % (22.0-44.0); MEAN CORPUSCULAR HEMOGLOBIN 26.5 pg (26.0-34.0); MEAN CORPUSCULAR HGB CONC 32.8 G/dL (31.0-37.0); MEAN CORPUSCULAR VOLUME 81 fL (80-100); MONOCYTES # (AUTO) 0.7 K/uL (0.1-1.0); NEUTROPHILS # (AUTO) 5.7 K/uL (1.8-7.7); NEUTROPHILS % (AUTO) 75.5 % (40.0-70.0); PLATELET COUNT (AUTO) 301 K/uL (150-450); RED BLOOD CELL COUNT(AUTO) 3.71 MIL/uL (4.50-5.90); RED CELL DISTRIBUTION WIDTH 15.2 % (11.5-14.5)
[2019-04-30 07:10] LABS: CALCIUM, TOTAL 8.5 mg/dL (8.8-10.5); CREATININE 5.34 mg/dL (0.60-1.30); PHOSPHORUS 6.7 mg/dL (2.5-4.9); POTASSIUM 4.9 mmol/L (3.5-5.1)
[2019-04-30] MEDS: SEVELAMER CARBONATE 800 MG TABLET PO SCH ×3 (08:00→17:52)
[2019-04-30] MEDS ORDERED: EPOETIN ALFA 10,000 UNITS/ML VIAL SQ SCH (09:00)
[2019-04-30] MEDS: NIFEdipine 30 MG ER TABLET PO SCH (10:54)
[2019-04-30] MEDS: ISOSORBIDE MONONITRATE 30 MG ER TABLET PO SCH (10:56)
[2019-04-30] MEDS: CARVEDILOL 25 MG TABLET PO SCH ×2 (10:57→22:19)
[2019-04-30] MEDS: HydrALAZINE HCL 50 MG TABLET PO SCH ×2 (10:57→22:19)
[2019-04-30] MEDS: DOCUSATE SODIUM 100 MG CAPSULE PO SCH ×2 (11:07→21:00)
[2019-04-30] MEDS ORDERED: MINOXIDIL 2.5 MG TABLET PO ONE (12:00)
[2019-05-01 00:33] VITALS: BP 154/89
[2019-05-01 06:41] VITALS: BP 200/125
[2019-05-01] MEDS: CloNIDine HCL 0.2 MG TABLET PO PRN ×2 (06:43→17:03)
[2019-05-01 07:14] VITALS: BP 191/100
[2019-05-01] MEDS: HydrALAZINE HCL 50 MG TABLET PO SCH (08:37)
[2019-05-01] MEDS: SEVELAMER CARBONATE 800 MG TABLET PO SCH ×3 (08:37→17:03)
[2019-05-01] MEDS: CARVEDILOL 25 MG TABLET PO SCH (08:38)
[2019-05-01] MEDS: DOCUSATE SODIUM 100 MG CAPSULE PO SCH (08:38)
[2019-05-01] MEDS: NIFEdipine 30 MG ER TABLET PO SCH (08:39)
[2019-05-01] MEDS ORDERED: MINOXIDIL 2.5 MG TABLET PO SCH (09:00)
[2019-05-01] MEDS ORDERED: ISOSORBIDE MONONITRATE 30 MG ER TABLET PO SCH (09:00)
[2019-05-01 12:01] VITALS: BP 154/108
[2019-05-01 16:28] VITALS: BP 178/82
== END 2019-05-01 18:24 | disposition home or self-care (01) | DRG 194 ==
LOC: EMS 15:54 → ICU 04-14 01:30 → 5N 04-14 10:32 → 5S 04-15 20:00
PROVIDERS: ADMIT Internal Medicine; ATTEND Internal Medicine
DX: I13.0 Hypertensive heart and chronic kidney disease with heart failure and stage 1 through stage 4 chronic kidney disease, or unspecified chronic kidney disease (principal); N17.0 Acute kidney failure with tubular necrosis; G93.41 Metabolic encephalopathy; E43 Unspecified severe protein-calorie malnutrition; E87.5 Hyperkalemia; S52.202A Unspecified fracture of shaft of left ulna, initial encounter for closed fracture; D63.8 Anemia in other chronic diseases classified elsewhere; N18.4 Chronic kidney disease, stage 4 (severe); I50.43 Acute on chronic combined systolic (congestive) and diastolic (congestive) heart failure; I16.1 Hypertensive emergency; F17.210 Nicotine dependence, cigarettes, uncomplicated; J44.9 Chronic obstructive pulmonary disease, unspecified; L97.929 Non-pressure chronic ulcer of unspecified part of left lower leg with unspecified severity; L97.919 Non-pressure chronic ulcer of unspecified part of right lower leg with unspecified severity; I25.5 Ischemic cardiomyopathy; I25.10 Atherosclerotic heart disease of native coronary artery without angina pectoris; F41.9 Anxiety disorder, unspecified; R62.7 Adult failure to thrive; F01.50 Vascular dementia, unspecified severity, without behavioral disturbance, psychotic disturbance, mood disturbance, and anxiety; F15.10 Other stimulant abuse, uncomplicated; F29 Unspecified psychosis not due to a substance or known physiological condition; I87.8 Other specified disorders of veins; X58.XXXA Exposure to other specified factors, initial encounter; Z79.899 Other long term (current) drug therapy; Z68.20 Body mass index [BMI] 20.0-20.9, adult; Z91.19 Patient's noncompliance with other medical treatment and regimen; Z59.0 Homelessness
CPT/HCPCS: 36600; 74176; 82570; 82805; 83735; 84100; 84156; 84300; 84540; 85007; 87081; 93005; 93971; 94640; 99291; G0378; J0360; J0885; J1200; J1630; J1815; J1940; J2060; J3490; J7060

== ENCOUNTER 2019-05-05 15:26 | Emergency (ER) | payer OTHER ==
[~2019-05-05] VITALS: Ht 172.7 cm; Wt 61.4 kg
[2019-05-05] MEDS ORDERED: AMLO10TA55 PO (15:38)
[2019-05-05] MEDS ORDERED: ASPI-1111 PO (15:38)
[2019-05-05] MEDS ORDERED: LOSA25TA71 PO (15:38)
[2019-05-05] MEDS ORDERED: MINO10 PO (15:38)
[2019-05-05] MEDS ORDERED: CLON0.1T83 PO (15:38)
[2019-05-05] MEDS ORDERED: POLYMYXIN B/TRIMETHOPRIM 10 ML OPHTHALMIC SOLUTION OU ONE (16:15)
[2019-05-05] MEDS ORDERED: CloNIDine HCL 0.2 MG TABLET PO ONE (16:15)
[2019-05-05] MEDS ORDERED: ISOS60TA4 PO (16:17)
[2019-05-05 16:53] LABS: GLUCOSE,POINT OF CARE 95 MG/DL (70-110)
[2019-05-05] MEDS ORDERED: AmLODIPine BESYLATE 5 MG TABLET PO ONE (17:00)
[2019-05-05] MEDS ORDERED: LORazepam 1 MG TABLET PO ONE (17:15)
[2019-05-05 17:41] VITALS: BP 228/135
== END 2019-05-05 17:50 | disposition left against medical advice (07) ==
LOC: EMS 15:27
DX: H10.9 Unspecified conjunctivitis (principal); F60.9 Personality disorder, unspecified; I11.0 Hypertensive heart disease with heart failure; I50.9 Heart failure, unspecified; F17.210 Nicotine dependence, cigarettes, uncomplicated; J45.909 Unspecified asthma, uncomplicated; F11.90 Opioid use, unspecified, uncomplicated; Z79.82 Long term (current) use of aspirin
CPT/HCPCS: 82948; 93005

== ENCOUNTER 2019-05-07 04:57 | Inpatient (IN) | payer OTHER ==
[~2019-05-07] VITALS: Ht 175.3 cm; Wt 65.9 kg
[~2019-05-07 04:57] MED LIST changes: +AMLO10TA55 PO; +ASPI-1111 PO; +CLON0.1T83 PO; +ISOS60TA4 PO; +LOSA25TA71 PO; +MINO10 PO
[2019-05-07 05:26] LABS: BASOPHILS % (AUTO) 0.8 % (0.0-2.0); EOSINOPHILS % (AUTO) 2.8 % (1.0-6.0); HEMATOCRIT 31.8 % (41-53); HEMOGLOBIN 10.4 g/dL (13.5-17.5); LYMPHOCYTES # (AUTO) 0.7 K/uL (1.0-4.8); MEAN CORPUSCULAR HEMOGLOBIN 26.5 pg (26.0-34.0); MEAN CORPUSCULAR HGB CONC 32.7 G/dL (31.0-37.0); MEAN CORPUSCULAR VOLUME 81 fL (80-100); MONOCYTES # (AUTO) 0.6 K/uL (0.1-1.0); MONOCYTES % (AUTO) 6.2 % (2.0-9.0); NEUTROPHILS # (AUTO) 8.3 K/uL (1.8-7.7); NEUTROPHILS % (AUTO) 83.2 % (40.0-70.0); PLATELET COUNT (AUTO) 317 K/uL (150-450); RED BLOOD CELL COUNT(AUTO) 3.92 MIL/uL (4.50-5.90); RED CELL DISTRIBUTION WIDTH 15.8 % (11.5-14.5)
[2019-05-07] MEDS ORDERED: NiCARDipine HCL 25 MG in DEXTROSE 5%-WATER 240 ML IV PRN ×2 (05:30→07:15)
[2019-05-07] MEDS ORDERED: POLYMYXIN B/TRIMETHOPRIM 10 ML OPHTHALMIC SOLUTION OU STA (05:33)
[2019-05-07 05:34] LABS: CALCIUM, TOTAL 8.4 mg/dL (8.8-10.5); CREATININE 4.05 mg/dL (0.60-1.30)
[2019-05-07 05:40] LABS: ALBUMIN 2.9 g/dL (3.4-5.0); BILIRUBIN,TOTAL 0.3 mg/dL (0.1-1.0); TOTAL PROTEIN, SERUM 7.1 g/dL (6.4-8.2)
[2019-05-07] MEDS ORDERED: NITROGLYCERIN 0.4 MG SUBLINGUAL TABLET #25 SL ONE (05:45)
[2019-05-07] MEDS ORDERED: MORPHINE SULFATE 4 MG/ML SYRINGE IVP ONE (06:00)
[2019-05-07] MEDS ORDERED: WATER IV PRN (06:00)
[2019-05-07] MEDS ORDERED: CloNIDine HCL 0.1 MG TABLET PO ONE ×2 (06:00→06:15)
[2019-05-07] MEDS ORDERED: NICARDIPINE HCL IV PRN (06:00)
[2019-05-07] MEDS ORDERED: DEXTROSE 5% IV PRN (06:00)
[2019-05-07] MEDS ORDERED: NITROGLYCERIN 2% (1 GM=INCH) PACKET TP ONE (06:15)
[2019-05-07] MEDS ORDERED: LABETALOL HCL 5 MG/ML 20 ML VIAL IVP ONE ×2 (06:15→07:00)
[2019-05-07] MEDS ORDERED: ACETAMINOPHEN 325 MG TABLET PO PRN ×2 (07:15→08:45)
[2019-05-07] MEDS ORDERED: ONDANSETRON HCL 4 MG/2 ML VIAL IVP PRN ×2 (07:15→08:45)
[2019-05-07] MEDS ORDERED: 0.9% SODIUM CHLORIDE 10 ML SYRINGE IVP PRN ×2 (07:15→08:45)
[2019-05-07 08:30] VITALS: BP 199/113
[2019-05-07] MEDS ORDERED: DOCUSATE SODIUM 100 MG CAPSULE PO PRN (08:45)
[2019-05-07] MEDS ORDERED: IPRATROPIUM BROMIDE 0.5 MG/2.5 ML NEB SOLUTION NEB PRN (08:45)
[2019-05-07] MEDS ORDERED: ALBUTEROL SULFATE 2.5 MG/0.5 ML NEB SOLUTION NEB PRN (08:45)
[2019-05-07] MEDS ORDERED: MAGNESIUM HYDROXIDE SUSPENSION 30 ML UDCUP PO PRN (08:45)
[2019-05-07] MEDS ORDERED: BISACODYL 10 MG RECTAL RECTAL SUPPOSITORY PR PRN (08:45)
[2019-05-07] MEDS ORDERED: PANTOPRAZOLE SODIUM 40 MG DR TABLET PO SCH (09:00)
[2019-05-07] MEDS ORDERED: CloNIDine HCL 0.1 MG TABLET PO SCH (09:00)
[2019-05-07] MEDS ORDERED: HEPARIN SODIUM,PORCINE 5,000 UNITS/ML VIAL SQ SCH (09:00)
[2019-05-07 09:44] LABS: ABG A-A DIFF O2 124.9 mmHg (10-20.0); ABG BASE EXCESS -8.1 mmol/L (-2.0-3.0); ABG HCO3 18.5 mmol/L (22.0-26.0); ABG METHEMOGLOBIN 0.3 % (0.0-1.5); ABG OXYGEN CONTENT 13.9 mL/dL (15.0-23.0); ABG OXYGEN SATURATION 92.2 % (95.0-98.0); ABG PCO2 32 mmHg (35-45); ABG PH 7.352 (7.35-7.450); ABG TOTAL HEMOGLOBIN 10.8 G/dL (12.0-18.0); PO2, ARTERIAL BG 65.7 mmHg (84.0-92.0); SOURCE, BLOOD GAS ARTERIAL
[2019-05-07 09:45] VITALS: BP 186/116
[2019-05-07 09:45] LABS: O2 DEVICE,BLOOD GAS CANNULA (ROOM AIR); SITE, BLOOD GAS LFT RADIAL
[2019-05-07] MEDS ORDERED: POLYMYXIN B/TRIMETHOPRIM 10 ML OPHTHALMIC SOLUTION OU SCH (12:00)
== END 2019-05-07 12:15 | disposition left against medical advice (07) | DRG 199 ==
LOC: EMS 04:57 → ICU 06:59
PROVIDERS: ADMIT Internal Medicine; ATTEND Internal Medicine
DX: I16.1 Hypertensive emergency (principal); N17.9 Acute kidney failure, unspecified; I50.32 Chronic diastolic (congestive) heart failure; I13.0 Hypertensive heart and chronic kidney disease with heart failure and stage 1 through stage 4 chronic kidney disease, or unspecified chronic kidney disease; R06.03 Acute respiratory distress; N18.9 Chronic kidney disease, unspecified; D63.8 Anemia in other chronic diseases classified elsewhere; H10.89 Other conjunctivitis; Z53.29 Procedure and treatment not carried out because of patient's decision for other reasons; F14.90 Cocaine use, unspecified, uncomplicated; J44.9 Chronic obstructive pulmonary disease, unspecified; F17.210 Nicotine dependence, cigarettes, uncomplicated; Z91.14 Patient's other noncompliance with medication regimen; Z91.19 Patient's noncompliance with other medical treatment and regimen; Z79.899 Other long term (current) drug therapy; Z79.82 Long term (current) use of aspirin
CPT/HCPCS: 82805; 87081; 93005; 93308; 99291; G0378; G0480; J2270; J3490; J7060

== ENCOUNTER 2019-05-11 04:57 | Emergency (ER) | payer OTHER ==
[~2019-05-11] VITALS: Ht 175.3 cm; Wt 68.2 kg
[~2019-05-11 04:57] MED LIST changes: -ASPI-1111 PO; -CLON0.3T PO; -ISOS30TA6 PO; -MINO10 PO
[2019-05-11] MEDS ORDERED: HYDR10TA31 PO (05:01)
[2019-05-11 05:49] LABS: BASOPHILS % (AUTO) 0.9 % (0.0-2.0); EOSINOPHILS % (AUTO) 3.6 % (1.0-6.0); HEMOGLOBIN 10.3 g/dL (13.5-17.5); LYMPHOCYTES # (AUTO) 0.7 K/uL (1.0-4.8); LYMPHOCYTES % (AUTO) 11.9 % (22.0-44.0); MEAN CORPUSCULAR HEMOGLOBIN 26.1 pg (26.0-34.0); MEAN CORPUSCULAR HGB CONC 32.3 G/dL (31.0-37.0); MEAN CORPUSCULAR VOLUME 81 fL (80-100); MONOCYTES # (AUTO) 0.6 K/uL (0.1-1.0); MONOCYTES % (AUTO) 9.9 % (2.0-9.0); NEUTROPHILS # (AUTO) 4.2 K/uL (1.8-7.7); NEUTROPHILS % (AUTO) 73.7 % (40.0-70.0); PLATELET COUNT (AUTO) 240 K/uL (150-450); RED BLOOD CELL COUNT(AUTO) 3.97 MIL/uL (4.50-5.90); RED CELL DISTRIBUTION WIDTH 15.4 % (11.5-14.5)
[2019-05-11 05:57] LABS: CALCIUM, TOTAL 8.6 mg/dL (8.8-10.5); CREATININE 4.3 mg/dL (0.60-1.30); POTASSIUM 4.1 mmol/L (3.5-5.1)
[2019-05-11 06:03] LABS: ALBUMIN 2.7 g/dL (3.4-5.0); BILIRUBIN,TOTAL 0.2 mg/dL (0.1-1.0); TOTAL PROTEIN, SERUM 6.7 g/dL (6.4-8.2)
[2019-05-11] MEDS ORDERED: DiphenhydrAMINE HCL 50 MG/ML VIAL IVP STA (07:16)
[2019-05-11] MEDS ORDERED: HydrALAZINE HCL 20 MG/ML VIAL IVP ONE (07:30)
[2019-05-11] MEDS ORDERED: METOCLOPRAMIDE HCL 5 MG/ML 2 ML VIAL IVP ONE (07:30)
[2019-05-11] MEDS ORDERED: FUROSEMIDE 40 MG/4 ML VIAL IVP ONE (07:30)
[2019-05-11] MEDS ORDERED: ACETAMINOPHEN 500 MG TABLET PO ONE (07:30)
[2019-05-11] MEDS ORDERED: HydrALAZINE HCL 10 MG TABLET PO ONE (08:00)
[2019-05-11] MEDS ORDERED: DiphenhydrAMINE HCL 25 MG CAPSULE PO ONE (08:00)
[2019-05-11] MEDS ORDERED: ACETAMINOPHEN 325 MG TABLET PO ONE (08:00)
[2019-05-11] MEDS ORDERED: FUROSEMIDE 20 MG TABLET PO ONE (08:00)
[2019-05-11] MEDS ORDERED: METOCLOPRAMIDE HCL 10 MG TABLET PO ONE (08:00)
[2019-05-11 08:15] VITALS: BP 180/105
== END 2019-05-11 08:31 | disposition left against medical advice (07) ==
LOC: EMS 04:59
DX: I11.0 Hypertensive heart disease with heart failure (principal); I50.9 Heart failure, unspecified; F17.210 Nicotine dependence, cigarettes, uncomplicated; J44.9 Chronic obstructive pulmonary disease, unspecified; F12.90 Cannabis use, unspecified, uncomplicated; F15.90 Other stimulant use, unspecified, uncomplicated; Z79.899 Other long term (current) drug therapy
CPT/HCPCS: 93005

== ENCOUNTER 2019-05-15 07:25 | Inpatient (IN) | payer OTHER ==
[~2019-05-15] VITALS: Ht 167.6 cm; Wt 69.5 kg
[~2019-05-15 07:25] MED LIST changes: +HYDR10TA31 PO
[2019-05-15 08:13] LABS: BASOPHILS % (AUTO) 1.2 % (0.0-2.0); HEMATOCRIT 32.7 % (41-53); HEMOGLOBIN 10.5 g/dL (13.5-17.5); LYMPHOCYTES # (AUTO) 1.2 K/uL (1.0-4.8); LYMPHOCYTES % (AUTO) 16.6 % (22.0-44.0); MEAN CORPUSCULAR HEMOGLOBIN 25.8 pg (26.0-34.0); MEAN CORPUSCULAR VOLUME 81 fL (80-100); MONOCYTES # (AUTO) 0.6 K/uL (0.1-1.0); MONOCYTES % (AUTO) 8.2 % (2.0-9.0); NEUTROPHILS # (AUTO) 4.9 K/uL (1.8-7.7); PLATELET COUNT (AUTO) 267 K/uL (150-450); RED BLOOD CELL COUNT(AUTO) 4.05 MIL/uL (4.50-5.90); RED CELL DISTRIBUTION WIDTH 15.4 % (11.5-14.5)
[2019-05-15] MEDS ORDERED: ALBUTEROL SULFATE 5 MG/ML 20 ML NEB SOLN [BULK] NEB ONE (08:15)
[2019-05-15] MEDS ORDERED: IPRATROPIUM BROMIDE 0.5 MG/2.5 ML NEB SOLUTION NEB ONE (08:15)
[2019-05-15] MEDS ORDERED: MethylPREDNISolone SOD SUCC 125 MG/2 ML VIAL IVP ONE (08:15)
[2019-05-15 08:23] LABS: CALCIUM, TOTAL 8.7 mg/dL (8.8-10.5); CREATININE 4.45 mg/dL (0.60-1.30)
[2019-05-15] MEDS ORDERED: 0.9% SODIUM CHLORIDE 5 ML NEB SOLUTION NEB ONE (08:23)
[2019-05-15 08:29] LABS: ALBUMIN 2.7 g/dL (3.4-5.0); BILIRUBIN,TOTAL 0.3 mg/dL (0.1-1.0); TOTAL PROTEIN, SERUM 6.9 g/dL (6.4-8.2)
[2019-05-15 08:32] LABS: LACTIC ACID 0.5 mmol/L (0.4-2.0)
[2019-05-15 08:47] LABS: MAGNESIUM 1.8 mg/dL (1.80-2.40)
[2019-05-15 09:07] LABS: INFLUENZA TYPE A NEGATIVE FOR TYPE A (NEGATIVE); INFLUENZA TYPE B NEGATIVE FOR TYPE B (NEGATIVE)
[2019-05-15] MEDS ORDERED: DiphenhydrAMINE HCL 50 MG/ML VIAL IVP ONE (09:15)
[2019-05-15] MEDS ORDERED: METOCLOPRAMIDE HCL 5 MG/ML 2 ML VIAL IVP ONE (09:15)
[2019-05-15] MEDS ORDERED: ACETAMINOPHEN 500 MG TABLET PO ONE (09:15)
[2019-05-15] MEDS ORDERED: HydrALAZINE HCL 20 MG/ML VIAL IVP ONE (11:45)
[2019-05-15] MEDS ORDERED: DOXYCYCLINE HYCLATE 100 MG in DEXTROSE 5%-WATER 100 ML IV ONE (13:15)
[2019-05-15] MEDS ORDERED: 0.9% SODIUM CHLORIDE 10 ML SYRINGE IVP PRN (13:45)
[2019-05-15] MEDS ORDERED: ACETAMINOPHEN 325 MG TABLET PO PRN ×2 (13:45)
[2019-05-15] MEDS ORDERED: ALBUTEROL SULFATE 2.5 MG/0.5 ML NEB SOLUTION NEB PRN (13:45)
[2019-05-15] MEDS ORDERED: OxyCODONE HCL/ACETAMINOPHEN 5-325 MG TABLET PO PRN (13:45)
[2019-05-15] MEDS ORDERED: BISACODYL 10 MG RECTAL RECTAL SUPPOSITORY PR PRN (13:45)
[2019-05-15] MEDS ORDERED: ONDANSETRON HCL 4 MG/2 ML VIAL IVP PRN (13:45)
[2019-05-15] MEDS ORDERED: CloNIDine HCL 0.1 MG TABLET PO PRN (13:45)
[2019-05-15] MEDS ORDERED: CefTRIAXone 1 GM/DEXTROSE 50 ML IV ONE (13:45)
[2019-05-15] MEDS ORDERED: INFLUENZA VIRUS VACCINE QVS 2019-20 (3YR+)/PF 60 MCG/0.5 ML SYRINGE IM ONE (14:30)
[2019-05-15] MEDS: AmLODIPine BESYLATE 10 MG TABLET PO SCH (14:42)
[2019-05-15] MEDS: LOSARTAN POTASSIUM 25 MG TABLET PO SCH ×2 (14:43→20:31)
[2019-05-15 16:00] VITALS: BP 167/78
[2019-05-15] MEDS: CloNIDine HCL 0.1 MG TABLET PO SCH (16:26)
[2019-05-15 19:54] VITALS: BP_SYST 162; BP_SYST 168; BP_DIAS 110; BP_DIAS 76
[2019-05-15] MEDS: HEPARIN SODIUM,PORCINE 5,000 UNITS/ML VIAL SQ SCH (20:31)
[2019-05-15] MEDS: DOCUSATE SODIUM 100 MG CAPSULE PO SCH (20:43)
[2019-05-15] MEDS ORDERED: ATORVASTATIN CALCIUM 20 MG TABLET PO SCH (21:00)
[2019-05-15] MEDS ORDERED: SODIUM CHLORIDE 0.9% 100 ML ONE (23:54)
[2019-05-16] MEDS: DOXYCYCLINE HYCLATE 100 MG in DEXTROSE 5%-WATER 100 ML IV SCH ×2 (00:11→12:23)
[2019-05-16 00:18] VITALS: BP 178/87
[2019-05-16] MEDS: CloNIDine HCL 0.1 MG TABLET PO SCH ×3 (00:56→15:28)
[2019-05-16 03:35] VITALS: BP 151/94
[2019-05-16] MEDS: AmLODIPine BESYLATE 10 MG TABLET PO SCH (08:48)
[2019-05-16] MEDS: LOSARTAN POTASSIUM 25 MG TABLET PO SCH (08:49)
[2019-05-16 08:50] VITALS: BP 163/87
[2019-05-16] MEDS: HEPARIN SODIUM,PORCINE 5,000 UNITS/ML VIAL SQ SCH (08:50)
[2019-05-16] MEDS: DOCUSATE SODIUM 100 MG CAPSULE PO SCH (08:50)
[2019-05-16] MEDS ORDERED: FAMOTIDINE 20 MG TABLET PO SCH (09:00)
[2019-05-16] MEDS ORDERED: ASPIRIN 81 MG CHEWABLE TABLET PO SCH (09:00)
[2019-05-16] MEDS ORDERED: 0.9% SODIUM CHLORIDE 5 ML NEB SOLUTION NEB ONE (15:26)
[2019-05-16 15:38] VITALS: BP 186/108
== END 2019-05-16 18:12 | disposition left against medical advice (07) | DRG 139 ==
LOC: EMS 07:27 → 5S 13:45
PROVIDERS: ADMIT Internal Medicine; ATTEND Internal Medicine
DX: J18.9 Pneumonia, unspecified organism (principal); E43 Unspecified severe protein-calorie malnutrition; I13.2 Hypertensive heart and chronic kidney disease with heart failure and with stage 5 chronic kidney disease, or end stage renal disease; I12.0 Hypertensive chronic kidney disease with stage 5 chronic kidney disease or end stage renal disease; F01.50 Vascular dementia, unspecified severity, without behavioral disturbance, psychotic disturbance, mood disturbance, and anxiety; N18.5 Chronic kidney disease, stage 5; J44.0 Chronic obstructive pulmonary disease with (acute) lower respiratory infection; Y95 Nosocomial condition; I50.9 Heart failure, unspecified; Z53.29 Procedure and treatment not carried out because of patient's decision for other reasons; Z68.24 Body mass index [BMI] 24.0-24.9, adult; Z91.19 Patient's noncompliance with other medical treatment and regimen; Z87.891 Personal history of nicotine dependence; Z79.899 Other long term (current) drug therapy
CPT/HCPCS: 71250; 83605; 83735; 87040; 87804; 93005; 94644; J0360; J0696; J1200; J1644; J2765; J2930; J3490; J7050; J7060

== ENCOUNTER 2019-05-19 00:18 | Inpatient (IN) | payer OTHER ==
[~2019-05-19] VITALS: Ht 167.6 cm; Wt 72.7 kg
[2019-05-19 00:52] LABS: BASOPHILS % (AUTO) 0.6 % (0.0-2.0); EOSINOPHILS % (AUTO) 3.4 % (1.0-6.0); HEMATOCRIT 31.3 % (41-53); MEAN CORPUSCULAR HEMOGLOBIN 25.9 pg (26.0-34.0); MEAN CORPUSCULAR VOLUME 81 fL (80-100); MONOCYTES # (AUTO) 0.7 K/uL (0.1-1.0); MONOCYTES % (AUTO) 7.4 % (2.0-9.0); NEUTROPHILS # (AUTO) 7.6 K/uL (1.8-7.7); NEUTROPHILS % (AUTO) 78.6 % (40.0-70.0); PLATELET COUNT (AUTO) 294 K/uL (150-450); RED BLOOD CELL COUNT(AUTO) 3.86 MIL/uL (4.50-5.90); RED CELL DISTRIBUTION WIDTH 15.5 % (11.5-14.5)
[2019-05-19] MEDS ORDERED: NITROGLYCERIN 0.4 MG SUBLINGUAL TABLET #25 SL ONE (01:00)
[2019-05-19 01:02] LABS: CALCIUM, TOTAL 8.8 mg/dL (8.8-10.5); CREATININE 4.39 mg/dL (0.60-1.30)
[2019-05-19 01:05] LABS: PROTHROMBIN TIME 10.5 SEC (9.4-11.6)
[2019-05-19] MEDS ORDERED: ALBUTEROL SULFATE 2.5 MG/0.5 ML NEB SOLUTION NEB ONE (01:15)
[2019-05-19] MEDS ORDERED: IPRATROPIUM BROMIDE 0.5 MG/2.5 ML NEB SOLUTION NEB ONE (01:15)
[2019-05-19 01:27] LABS: ALBUMIN 2.8 g/dL (3.4-5.0); BILIRUBIN,TOTAL 0.3 mg/dL (0.1-1.0); TOTAL PROTEIN, SERUM 6.7 g/dL (6.4-8.2)
[2019-05-19 01:29] LABS: APPEARANCE,URINE CLEAR (CLEAR); BILIRUBIN,URINE NEGATIVE (NEGATIVE); GLUCOSE, URINE (UA) NEGATIVE (NEGATIVE); KETONES,URINE NEGATIVE (NEGATIVE); LEUKOCYTE ESTERASE ,URINE NEGATIVE (NEGATIVE); NITRATE,URINE NEGATIVE (NEGATIVE); OCCULT BLOOD,URINE NEGATIVE (NEGATIVE); PROTEIN,URINE SEE CONFIRM (NEGATIVE); UROBILINOGEN,URINE 0.2 mg/dL (<=1.0)
[2019-05-19] MEDS ORDERED: NITROGLYCERIN 100 MG in DEXTROSE 5%-WATER 230 ML IV PRN (01:30)
[2019-05-19] MEDS ORDERED: NITROGLYCERIN 50 MG/D5% WATER 250 ML IV PRN (01:30)
[2019-05-19 01:40] LABS: INFLUENZA TYPE A NEGATIVE FOR TYPE A (NEGATIVE); INFLUENZA TYPE B NEGATIVE FOR TYPE B (NEGATIVE)
[2019-05-19 01:42] LABS: SULFOSALICYLIC ACID,URINE 3+ (Negative)
[2019-05-19 01:44] LABS: BACTERIA,URINE Rare /HPF (None Seen); RBC,URINE 0-2 /HPF (0-2); SQUAMOUS EPITHELIAL CELL,UR Few /LPF (None Seen)
[2019-05-19] MEDS ORDERED: MORPHINE SULFATE 2 MG/ML SYRINGE IVP ONE (03:00)
[2019-05-19] MEDS ORDERED: ONDANSETRON HCL 4 MG/2 ML VIAL IVP PRN ×2 (03:15→04:30)
[2019-05-19] MEDS ORDERED: ACETAMINOPHEN 325 MG TABLET PO PRN ×2 (03:15→04:30)
[2019-05-19] MEDS ORDERED: 0.9% SODIUM CHLORIDE 10 ML SYRINGE IVP PRN (03:15)
[2019-05-19] MEDS ORDERED: ZOLPIDEM TARTRATE 5 MG TABLET PO PRN (04:30)
[2019-05-19] MEDS ORDERED: MAGNESIUM HYDROXIDE SUSPENSION 30 ML UDCUP PO PRN (04:30)
[2019-05-19] MEDS ORDERED: MORPHINE SULFATE 2 MG/ML SYRINGE IVP PRN (04:30)
[2019-05-19] MEDS ORDERED: HYDROCODONE/ACETAMINOPHEN 5-325 MG TABLET PO PRN (04:30)
[2019-05-19] MEDS ORDERED: BISACODYL 10 MG RECTAL RECTAL SUPPOSITORY PR PRN (04:30)
[2019-05-19] MEDS ORDERED: HEPARIN SODIUM,PORCINE 5,000 UNITS/ML VIAL SQ SCH (08:00)
[2019-05-19] MEDS ORDERED: LABETALOL HCL 200 MG in DEXTROSE 5%-WATER 160 ML IV PRN (08:00)
[2019-05-19] MEDS ORDERED: LOSARTAN POTASSIUM 25 MG TABLET PO SCH (09:00)
[2019-05-19] MEDS ORDERED: PANTOPRAZOLE SODIUM 40 MG DR TABLET PO SCH (09:00)
[2019-05-19] MEDS ORDERED: AmLODIPine BESYLATE 10 MG TABLET PO SCH (09:00)
[2019-05-19] MEDS ORDERED: CloNIDine HCL 0.1 MG TABLET PO SCH (09:00)
[2019-05-19] MEDS ORDERED: ISOSORBIDE MONONITRATE 60 MG ER TABLET PO SCH (09:00)
[2019-05-19] MEDS ORDERED: DOCUSATE SODIUM 100 MG CAPSULE PO SCH (09:00)
[2019-05-19 11:35] VITALS: BP 158/90
== END 2019-05-19 15:50 | disposition left against medical advice (07) | DRG 199 ==
LOC: EMS 00:18 → ICU 11:32
PROVIDERS: ADMIT Internal Medicine; ATTEND Internal Medicine
DX: I16.0 Hypertensive urgency (principal); I50.31 Acute diastolic (congestive) heart failure; I13.0 Hypertensive heart and chronic kidney disease with heart failure and stage 1 through stage 4 chronic kidney disease, or unspecified chronic kidney disease; N18.3 Chronic kidney disease, stage 3 (moderate); F14.90 Cocaine use, unspecified, uncomplicated; J44.9 Chronic obstructive pulmonary disease, unspecified; F15.90 Other stimulant use, unspecified, uncomplicated; F17.210 Nicotine dependence, cigarettes, uncomplicated; Z53.29 Procedure and treatment not carried out because of patient's decision for other reasons; Z91.14 Patient's other noncompliance with medication regimen
CPT/HCPCS: 87081; 87086; 87635; 87804; 93005; 94060; 94640; G0378; J1644; J2270; J3490; J7060

== ENCOUNTER 2019-05-21 05:27 | Emergency (ER) | payer OTHER ==
[~2019-05-21] VITALS: Ht 172.7 cm; Wt 59.1 kg
[2019-05-21 06:33] LABS: BASOPHILS % (AUTO) 0.7 % (0.0-2.0); EOSINOPHILS % (AUTO) 3.7 % (1.0-6.0); HEMATOCRIT 31.9 % (41-53); HEMOGLOBIN 10.4 g/dL (13.5-17.5); LYMPHOCYTES % (AUTO) 11.6 % (22.0-44.0); MEAN CORPUSCULAR HEMOGLOBIN 26.3 pg (26.0-34.0); MEAN CORPUSCULAR HGB CONC 32.6 G/dL (31.0-37.0); MEAN CORPUSCULAR VOLUME 81 fL (80-100); MONOCYTES # (AUTO) 0.7 K/uL (0.1-1.0); MONOCYTES % (AUTO) 8.4 % (2.0-9.0); NEUTROPHILS # (AUTO) 6.6 K/uL (1.8-7.7); NEUTROPHILS % (AUTO) 75.6 % (40.0-70.0); PLATELET COUNT (AUTO) 285 K/uL (150-450); RED BLOOD CELL COUNT(AUTO) 3.95 MIL/uL (4.50-5.90); RED CELL DISTRIBUTION WIDTH 15.3 % (11.5-14.5)
[2019-05-21] MEDS: NITROGLYCERIN 50 MG/D5% WATER 250 ML IV PRN ×2 (06:43→07:01)
[2019-05-21 06:44] LABS: CALCIUM, TOTAL 8.5 mg/dL (8.8-10.5); CREATININE 4.51 mg/dL (0.60-1.30); POTASSIUM 4.9 mmol/L (3.5-5.1)
[2019-05-21] MEDS ORDERED: ACETAMINOPHEN 500 MG TABLET PO ONE (06:45)
[2019-05-21 06:50] LABS: ALBUMIN 2.9 g/dL (3.4-5.0); BILIRUBIN,TOTAL 0.3 mg/dL (0.1-1.0); TOTAL PROTEIN, SERUM 6.8 g/dL (6.4-8.2)
[2019-05-21] MEDS ORDERED: FUROSEMIDE 40 MG/4 ML VIAL IVP ONE (07:30)
[2019-05-21] MEDS ORDERED: ACETAMINOPHEN 325 MG TABLET PO PRN ×2 (08:00→10:00)
[2019-05-21] MEDS ORDERED: LORazepam 2 MG/ML VIAL IVP ONE (08:00)
[2019-05-21] MEDS ORDERED: ONDANSETRON HCL 4 MG/2 ML VIAL IVP PRN ×2 (08:00→10:00)
[2019-05-21] MEDS: NiCARDipine HCL 25 MG in DEXTROSE 5%-WATER 240 ML IV PRN ×2 (08:10→11:09)
[2019-05-21] MEDS ORDERED: ALBUTEROL SULFATE 2.5 MG/0.5 ML NEB SOLUTION NEB PRN (10:00)
[2019-05-21] MEDS ORDERED: BISACODYL 10 MG RECTAL RECTAL SUPPOSITORY PR PRN (10:00)
[2019-05-21] MEDS ORDERED: MAGNESIUM HYDROXIDE SUSPENSION 30 ML UDCUP PO PRN (10:00)
[2019-05-21] MEDS ORDERED: IPRATROPIUM BROMIDE 0.5 MG/2.5 ML NEB SOLUTION NEB PRN (10:00)
[2019-05-21] MEDS ORDERED: 0.9% SODIUM CHLORIDE 10 ML SYRINGE IVP PRN (10:00)
[2019-05-21] MEDS ORDERED: DOCUSATE SODIUM 100 MG CAPSULE PO PRN (10:00)
[2019-05-21 13:07] VITALS: BP 170/102
[2019-05-21] MEDS ORDERED: HEPARIN SODIUM,PORCINE 5,000 UNITS/ML VIAL SQ SCH (21:00)
[2019-05-22] MEDS ORDERED: PANTOPRAZOLE SODIUM 40 MG DR TABLET PO SCH (09:00)
== END 2019-05-21 13:10 | disposition left against medical advice (07) ==
LOC: EMS 05:27
DX: I11.0 Hypertensive heart disease with heart failure (principal); I50.9 Heart failure, unspecified; N28.9 Disorder of kidney and ureter, unspecified; J44.9 Chronic obstructive pulmonary disease, unspecified; F17.210 Nicotine dependence, cigarettes, uncomplicated; F12.90 Cannabis use, unspecified, uncomplicated; F19.90 Other psychoactive substance use, unspecified, uncomplicated; F14.90 Cocaine use, unspecified, uncomplicated
CPT/HCPCS: 36415; 70450; 71045; 80053; 83880; 84484; 85025; 93005; 96365; 96366; 96367; 96375; 99291; J1940; J2060; J3490 ×2; J7060

== ENCOUNTER 2019-05-23 05:05 | Emergency (ER) | payer OTHER ==
[~2019-05-23] VITALS: Ht 165.1 cm; Wt 69.3 kg
[2019-05-23] MEDS ORDERED: RAPID SEQUENCE KIT [RSI] 1 EACH KIT ONE (05:09)
[2019-05-23] MEDS ORDERED: SUCCINYLCHOLINE CHLORIDE 20 MG/ML 10 ML VIAL ONE (05:10)
[2019-05-23] MEDS ORDERED: ROCURONIUM BROMIDE 10 MG/ML 5 ML VIAL ONE (05:10)
[2019-05-23] MEDS ORDERED: MethylPREDNISolone SOD SUCC 125 MG/2 ML VIAL IVP ONE (05:15)
[2019-05-23] MEDS ORDERED: NITROGLYCERIN 0.4 MG SUBLINGUAL TABLET #25 SL ONE (05:15)
[2019-05-23] MEDS ORDERED: 0.9% SODIUM CHLORIDE 10 ML SYRINGE IVP PRN ×2 (05:15→08:00)
[2019-05-23] MEDS ORDERED: NITROGLYCERIN 50 MG/D5% WATER 250 ML IV PRN ×2 (05:30→06:15)
[2019-05-23 05:42] LABS: EOSINOPHILS % (AUTO) 2.1 % (1.0-6.0); HEMATOCRIT 33.5 % (41-53); HEMOGLOBIN 10.7 g/dL (13.5-17.5); LYMPHOCYTES # (AUTO) 0.8 K/uL (1.0-4.8); LYMPHOCYTES % (AUTO) 8.4 % (22.0-44.0); MEAN CORPUSCULAR HEMOGLOBIN 25.8 pg (26.0-34.0); MEAN CORPUSCULAR HGB CONC 31.8 G/dL (31.0-37.0); MEAN CORPUSCULAR VOLUME 81 fL (80-100); MONOCYTES # (AUTO) 0.5 K/uL (0.1-1.0); MONOCYTES % (AUTO) 4.8 % (2.0-9.0); NEUTROPHILS % (AUTO) 83.7 % (40.0-70.0); PLATELET COUNT (AUTO) 325 K/uL (150-450); RED BLOOD CELL COUNT(AUTO) 4.14 MIL/uL (4.50-5.90)
[2019-05-23 05:49] LABS: CALCIUM, TOTAL 7.9 mg/dL (8.8-10.5); CREATININE 4.5 mg/dL (0.60-1.30); POTASSIUM 5.5 mmol/L (3.5-5.1)
[2019-05-23 05:53] LABS: D-DIMER 1.51 mg/L FEU (0.00-0.50); INR 1.2 (0.9-1.1); PROTHROMBIN TIME 12.2 SEC (9.4-11.6)
[2019-05-23] MEDS: PIPERACILLIN SODIUM/TAZOBACTAM 2.25 GM in DEXTROSE 5%-WATER 50 ML IV SCH ×2 (05:56→16:14)
[2019-05-23 05:58] LABS: LACTIC ACID 0.4 mmol/L (0.4-2.0)
[2019-05-23 06:14] LABS: BILIRUBIN,TOTAL 0.3 mg/dL (0.1-1.0); TOTAL PROTEIN, SERUM 7.1 g/dL (6.4-8.2)
[2019-05-23] MEDS ORDERED: VANCOMYCIN HCL 1.25 GM in DEXTROSE 5%-WATER 250 ML IV ONE (07:00)
[2019-05-23] MEDS: IPRATROPIUM BROMIDE 0.5 MG/2.5 ML NEB SOLUTION NEB SCH ×3 (07:24→16:25)
[2019-05-23] MEDS: ALBUTEROL SULFATE 2.5 MG/0.5 ML NEB SOLUTION NEB SCH ×3 (07:24→16:25)
[2019-05-23] MEDS ORDERED: ONDANSETRON HCL 4 MG/2 ML VIAL IVP PRN (08:00)
[2019-05-23] MEDS ORDERED: ACETAMINOPHEN 325 MG TABLET PO PRN (08:00)
[2019-05-23 10:29] LABS: APPEARANCE,URINE CLEAR (CLEAR); BILIRUBIN,URINE NEGATIVE (NEGATIVE); GLUCOSE, URINE (UA) NEGATIVE (NEGATIVE); KETONES,URINE NEGATIVE (NEGATIVE); NITRATE,URINE NEGATIVE (NEGATIVE); OCCULT BLOOD,URINE TRACE (NEGATIVE); PROTEIN,URINE SEE CONFIRM (NEGATIVE); UROBILINOGEN,URINE 0.2 mg/dL (<=1.0)
[2019-05-23 10:43] LABS: BACTERIA,URINE None Seen /HPF (None Seen); LEUKOCYTE ESTERASE ,URINE TRACE (NEGATIVE); RBC,URINE 0-2 /HPF (0-2); RENAL EPITHELIAL CELLS,URINE Rare /LPF (None Seen); SULFOSALICYLIC ACID,URINE 3+ (Negative); WBC,URINE 0-2 /HPF (0-5)
[2019-05-23 13:31] LABS: ABG A-A DIFF O2 96.1 mmHg (10-20.0); ABG BASE EXCESS -9.9 mmol/L (-2.0-3.0); ABG CARBOXYHEMOGLOBIN 0.3 % (0.0-1.5); ABG HCO3 17.3 mmol/L (22.0-26.0); ABG METHEMOGLOBIN 0.4 % (0.0-1.5); ABG OXYGEN CONTENT 14.1 mL/dL (15.0-23.0); ABG OXYGEN SATURATION 98.7 % (95.0-98.0); ABG PCO2 32 mmHg (35-45); ABG PH 7.322 (7.35-7.450); PO2, ARTERIAL BG 152.3 mmHg (84.0-92.0); SOURCE, BLOOD GAS ARTERIAL; TEMPERATURE, FAHRENHEIT, BG 98.6 FAHREN (96.0-98.6)
[2019-05-23 13:32] LABS: O2 DEVICE,BLOOD GAS BIPAP (ROOM AIR); SITE, BLOOD GAS RT RADIAL
[2019-05-23 16:43] LABS: GLUCOSE,POINT OF CARE 122 MG/DL (70-110)
[2019-05-23] MEDS ORDERED: LORazepam 2 MG/ML VIAL IVP ONE (17:30)
[2019-05-23 18:25] VITALS: BP 172/120
== END 2019-05-23 18:39 | disposition left against medical advice (07) ==
LOC: EMS 05:05
DX: I16.1 Hypertensive emergency (principal); I11.0 Hypertensive heart disease with heart failure; I50.9 Heart failure, unspecified; J18.9 Pneumonia, unspecified organism; J44.9 Chronic obstructive pulmonary disease, unspecified; F12.90 Cannabis use, unspecified, uncomplicated; F14.90 Cocaine use, unspecified, uncomplicated; F15.90 Other stimulant use, unspecified, uncomplicated; F17.210 Nicotine dependence, cigarettes, uncomplicated; Z79.899 Other long term (current) drug therapy
CPT/HCPCS: 36415; 36600; 71045; 80053; 81001; 82550; 82805; 82962; 83605; 83880; 84484; 85025; 85379; 85610; 87040; 93005; 94640; 94660; 96365; 96366; 96367; 96368; 96375; 99291; J2060; J2543; J2930; J3370; J3490; J7060 ×2; J0330